=== PATIENT | female | born 1970 | race Caucasian/White ===

== ENCOUNTER 2020-11-14 12:58 | Outpatient (REF) | payer BC, SELFPAY ==
[2020-11-14 15:16] LABS: Erythrocyte Sedimentation Rate 7 MM/HR (0-20)
[2020-11-17 13:11] LABS: Anti Nuclear Antibody Screen NEGATIVE (NEGATIVE)
== END 2020-11-14 12:59 | disposition home or self-care (01) ==
LOC: HO.LAB 12:58
PROVIDERS: PCP Internal Medicine Endocrinology, Diabetes & Metabolism; Visit Provider Psychiatry & Neurology Neurology
DX: G43.009 Migraine without aura, not intractable, without status migrainosus (principal)
CPT/HCPCS: 36415; 85652; 86038; 86039

== ENCOUNTER 2021-07-05 15:11 | Inpatient (IN) | payer BC, SELFPAY ==
[2021-07-05] VITALS (14 sets, daily range): BP systolic 98–149; BP diastolic 46–97; PULSE 81–263; RESP 16–21; TEMP 36.8–37; O2SAT 94–97; BMI 42.9
--- NOTE | ~2021-07-05 | XR_ITS ---
EXAMINATION: XR CHEST CLINICAL INFORMATION: Palpitations COMPARISON: None TECHNIQUE: Frontal view of the chest was obtained. FINDINGS: The cardiac and mediastinal contours are stable. The lungs are clear. There is no pleural effusion or pneumothorax. There are degenerative changes of the spine. XR/XR chest 1V IMPRESSION: Unremarkable examination.
--- NOTE | 2021-07-05 15:26 | ECG_ITS ---
Test Reason : PALPITATIONS Blood Pressure : / mmHG Vent. Rate : 194 BPM Atrial Rate : 103 BPM P-R Int : 120 ms QRS Dur : 074 ms QT Int : 224 ms P-R-T Axes : 269 -11 -62 degrees QTc Int : 402 ms Atrial fibrillation with rapid ventricular response Abnormal ECG No previous ECGs available Referred By: Generic ED Physician Electronically Signed By:EYAD BECK
--- NOTE | 2021-07-05 15:51 | ED_ITS ---
HPI - Arrhythmia/Palpitations General Chief Complaint: Arrhythmia/Palpitations Stated Complaint: Palpitations Time Seen by Provider: 07/05/21 15:43 Source: patient History of Present Illness HPI narrative: Patient states approximately 1-1/2 hour prior to arrival she noticed palpitations. ?feels like my heart is beating out of my chest?. No chest pain. No prior history of similar issues. No recent medication changes or health status changes. She is vaccinated x3 against COVID. No respiratory issues or shortness of breath. No history of thyroid disorder or thromboembolic disease Related Data Home Medications Medication Instructions Recorded Confirmed amitriptyline 25 mg tablet 1 tab PO BEDTIME 07/05/21 07/05/21 atorvastatin 80 mg tablet 1 tab PO BEDTIME 07/05/21 07/05/21 cholecalciferol (vitamin D3) 50 50 mcg PO DAILY 07/05/21 07/05/21 mcg (2,000 unit) tablet (Vitamin D3) hydrochlorothiazide 25 mg tablet 1 tab PO DAILY 07/05/21 07/05/21 irbesartan 75 mg tablet 1 tab PO BEDTIME 07/05/21 07/05/21 metronidazole 0.75 % topical cream 1 appl TOPICAL BEDTIME 07/05/21 07/05/21 multivitamin 1 tab PO DAILY 07/05/21 07/05/21 omeprazole 20 mg capsule,delayed 20 mg PO DAILY@0630 07/05/21 07/05/21 release sumatriptan succinate 50 mg tablet 50 mg PO DAILY PRN 07/05/21 07/05/21 venlafaxine 150 mg tablet,extended 150 mg PO DAILY 07/05/21 07/05/21 release 24 hr Allergies Allergy/AdvReac Type Severity Reaction Status Date / Time No Known Allergies Allergy Verified 07/05/21 15:22 Review of Systems Constitutional: Comments: No fevers or chills recently Cardiovascular: Comments: Palpitations without chest pain Respiratory: Comments: No dyspnea Gastrointestinal: Comments: No nausea vomiting Musculoskeletal: Comments: No leg pain or pedal edema Integumentary/Breasts: Comments: No rash Neurologic: Comments: No syncope [facility] Past Medical History Medical History (Updated 07/05/21 @ 19:07 by Celestino Deras MD) High cholesterol Migraines Panic attack Social History Social History Advance Directives: No Advance Directives Information Provided: No Patient : No Physical Exam Vital Signs: Vital Signs: Last Vital Signs Temp 98.6 F 07/05/21 18:10 Pulse 117 H 07/05/21 19:03 Resp 18 07/05/21 19:03 BP 108/62 07/05/21 19:03 Pulse Ox 95 07/05/21 19:03 BMI result Body Mass Index 42.9 Const: Other: Awake alert no acute distress HENMT: Other: No JVD Chest: Other: Extremely tachycardic. On my exam over 200 beats per minute Resp: Other: Clear and equal bilaterally Skin: Other: Warm pink and dry Course Course Course Narrative: Atrial fibrillation SVT Tachy dysrhythmia Atrial flutter EKG shows tachycardia at 194 beats per minute which is irregularly irregular. Shortly after arrival patient's heart rate increased to 264 beats per minute. Narrow complex Patient treated with diltiazem IV. Repeated twice more with bolus. IV maintenance diltiazem drip at 15 mg an hour. Still with refractory a flutter at a rate of approximately 150. Metoprolol IV given with some improvement of rate down to approximately 130 beats per minute. Two more doses of metoprolol total given. 7:07 p.m.. Patient's heart rate now is around 115 beats per minute. Patient is comfortable. Blood pressure is maintaining above 100 systolic. Will hospitalize at this point MDM - Arrhythmia/Palpitations Lab Data Result diagrams: 07/05/21 15:49 07/05/21 15:49 Labs: Lab Results 07/05/21 07/05/21 07/05/21 Range/Units 15:49 15:49 15:49 WBC 14.9 H (4.8-10.8) X10*3/uL RBC 5.10 (4.20-5.50) X10*6/uL Hgb 14.0 (12.0-16.0) g/dl Hct 43.0 (37.0-47.0) % MCV 84.3 (80.0-98.0) fL MCH 27.5 (27.0-33.0) pg MCHC 32.6 (31.0-35.0) g/dl RDW 14.1 (11.0-16.0) % Plt Count 435 H (160-400) X10*3/uL MPV 9.2 L (9.4-12.3) fL Immature Gran % (Auto) 0.3 (0.0-0.4) % Neut % (Auto) 50.4 (45-73) % Lymph % (Auto) 39.2 (20-40) % [place] % (Auto) 7.8 (2-11) % Eos % (Auto) 1.9 (0-4) % Baso % (Auto) 0.4 (0-2) % Lymph # (Auto) 5.9 H (1.2-4.9) X10*3/uL [place] # (Auto) 1.2 (0.1-1.2) X10*3/uL Eos # (Auto) 0.3 (0.0-0.4) X10*3/uL Baso # (Auto) 0.1 (0.0-0.2) X10*3/uL Abs Immat Gran (auto) 0.04 H (0.00-0.03) X10*3/uL Absolute Neuts (auto) 7.5 (2.0-8.3) x10*3/uL Absolute Nucleated RBC 0.000 (0.0-0.012) X10*3/uL Nucleated RBC % (auto) 0.0 (0.0-0.2) /100WBC Smear Tech's Comments VERIFIED PT (9.9-13.0) SEC INR (0.9-1.1) D-Dimer High Sensitivty NG/ML Sodium 137 (135-145) mmol/L Potassium 4.1 (3.3-5.1) mmol/L Chloride 100 (96-108) mmol/L Carbon Dioxide 24 (22-29) mmol/L Anion Gap 17 (12-20) BUN 12 (9-16) mg/dL Creatinine 0.78 (0.5-1.4) mg/dL Estim Creat Clear Calc 105.2 Estimated GFR > 60 Random Glucose 138 H (60-115) mg/dL Calcium 9.7 (8.4-10.2) mg/dL Troponin I High Sens 8.4 (<3.5-17.0) ng/L TSH 0.63 (0.32-4.0) uIU/mL // Range/Units 16:41 WBC (4.8-10.8) X10*3/uL RBC (4.20-5.50) X10*6/uL Hgb (12.0-16.0) g/dl Hct (37.0-47.0) % MCV (80.0-98.0) fL MCH (27.0-33.0) pg MCHC (31.0-35.0) g/dl RDW (11.0-16.0) % Plt Count (160-400) X10*3/uL MPV (9.4-12.3) fL Immature Gran % (Auto) (0.0-0.4) % Neut % (Auto) (45-73) % Lymph % (Auto) (20-40) % [place] % (Auto) (2-11) % Eos % (Auto) (0-4) % Baso % (Auto) (0-2) % Lymph # (Auto) (1.2-4.9) X10*3/uL [place] # (Auto) (0.1-1.2) X10*3/uL Eos # (Auto) (0.0-0.4) X10*3/uL Baso # (Auto) (0.0-0.2) X10*3/uL Abs Immat Gran (auto) (0.00-0.03) X10*3/uL Absolute Neuts (auto) (2.0-8.3) x10*3/uL Absolute Nucleated RBC (0.0-0.012) X10*3/uL Nucleated RBC % (auto) (0.0-0.2) /100WBC Smear Tech's Comments PT 10.7 (9.9-13.0) SEC INR 0.9 (0.9-1.1) D-Dimer High Sensitivty < 150 NG/ML Sodium (135-145) mmol/L Potassium (3.3-5.1) mmol/L Chloride (96-108) mmol/L Carbon Dioxide (22-29) mmol/L Anion Gap (12-20) BUN (9-16) mg/dL Creatinine (0.5-1.4) mg/dL Estim Creat Clear Calc Estimated GFR Random Glucose (60-115) mg/dL Calcium (8.4-10.2) mg/dL Troponin I High Sens (<3.5-17.0) ng/L TSH (0.32-4.0) uIU/mL Discharge Plan Discharge Prescriptions: No Action atorvastatin 80 mg tablet 1 tab PO BEDTIME RF: 0 amitriptyline 25 mg tablet 1 tab PO BEDTIME RF: 0 metronidazole 0.75 % cream 1 appl topical BEDTIME RF: 0 irbesartan 75 mg tablet 1 tab PO BEDTIME RF: 0 hydrochlorothiazide 25 mg tablet 1 tab PO DAILY RF: 0 omeprazole 20 mg Capsule,Delayed Release(Dr/Ec) 20 mg PO DAILY@0630 RF: 0 multivitamin [Multi-Daily] Tablet 1 tab PO DAILY RF: 0 cholecalciferol (vitamin D3) [Vitamin D3] 50 mcg (2,000 unit) Tablet 50 mcg PO DAILY RF: 0 venlafaxine 150 mg Tablet Extended Release 24hr 150 mg PO DAILY RF: 0 sumatriptan succinate 50 mg Tablet 50 mg PO DAILY PRN (Reason: Migraine Headache) RF: 0
[2021-07-05] MEDS: dilTIAZem HCL 50 MG/10 ML VIAL 28.3495 MG IVPUSH (15:55)
[2021-07-05 16:02] LABS: Basophils Absolute Auto 0.1 X10*3/uL (0.0-0.2); Basophils Percent Auto 0.4 % (0-2); Eosinophils Absolute Auto 0.3 X10*3/uL (0.0-0.4); Eosinophils Percent Auto 1.9 % (0-4); Imm Gran Abs Auto 0.04 X10*3/uL (0.00-0.03); Imm Gran Pct Auto 0.3 % (0.0-0.4); Lymphocytes Absolute Auto 5.9 X10*3/uL (1.2-4.9); Lymphocytes Percent Auto 39.2 % (20-40); MANUAL DIFF FLAG SCAN; Mean Corpuscular HGB Conc 32.6 g/dl (31.0-35.0); Mean Corpuscular Hemoglobin 27.5 pg (27.0-33.0); Mean Corpuscular Volume 84.3 fL (80.0-98.0); Mean Platelet Volume 9.2 fL (9.4-12.3); Monocytes Absolute Auto 1.2 X10*3/uL (0.1-1.2); Monocytes Percent Auto 7.8 % (2-11); Neutrophils Absolute Auto 7.5 x10*3/uL (2.0-8.3); Neutrophils Percent Auto 50.4 % (45-73); Platelet Count 435 X10*3/uL (160-400); Red Cell Distribution Width 14.1 % (11.0-16.0); SCAN SMEAR FLAG 1; White Blood Count 14.9 X10*3/uL (4.8-10.8)
[2021-07-05 16:08] LABS: Anion Gap 17 (12-20); Blood Urea Nitrogen 12 mg/dL (9-16); Calcium 9.7 mg/dL (8.4-10.2); Carbon Dioxide 24 mmol/L (22-29); Chloride 100 mmol/L (96-108); Creatinine Clr Calc Pharmacy 105.2; Estimated Glomerular Filt Rate > 60; Glucose Random 138 mg/dL (60-115); Potassium 4.1 mmol/L (3.3-5.1); Sodium 137 mmol/L (135-145)
[2021-07-05 16:13] LABS: Troponin-I High Sensitivity 8.4 ng/L (<3.5-17.0)
[2021-07-05] MEDS: dilTIAZem HCL 50 MG/10 ML VIAL 20 MG IVPUSH ×2 (16:22→17:04)
[2021-07-05 16:23] LABS: SLIDE REVIEW VERIFIED
[2021-07-05] MEDS: LORazepam 2 MG/ML VIAL 1 MG IVPUSH (16:23)
[2021-07-05] MEDS: dilTIAZem HCL 125 MG in 0.9 % Sodium Chloride 100 ML 10 MG IVCONT (16:55)
[2021-07-05 16:56] LABS: TSH reflex Free T4 0.63 uIU/mL (0.32-4.0)
[2021-07-05 17:03] LABS: INTERNATIONAL NORM RATIO 0.9 (0.9-1.1); Prothrombin Time 10.7 SEC (9.9-13.0)
--- NOTE | 2021-07-05 17:16 | PC.NURSE ---
Diltiazem drip rate increased to 15 mg/hr. PT has received 3 IV push doses of diltiazem and HR remains elevated above 150.
[2021-07-05 17:21] LABS: D Dimer High Sensitivity < 150 NG/ML
--- NOTE | 2021-07-05 17:49 | PHA.MEDREC ---
MED REC COMPLETE, NO ISSUES Pharmacy Consult ? Medication Reconciliation Pharmacy has completed the medication reconciliation.
[2021-07-05] MEDS: Metoprolol Tartrate 5 MG/5 ML VIAL IVPUSH ×3 (17:52→18:54)
[2021-07-05] MEDS: 0.9 % Sodium Chloride 500 ML IV (18:55)
--- NOTE | 2021-07-05 19:17 | PM.IMHP ---
History of Present Illness Date of Service: 07/05/21 Chief Complaint: Palpitations 50-year-old female with a past medical history of hypertension, hyperlipidemia, anxiety, depression presented to the hospital with a chief complaint of palpitations. Reportedly palpitations started about high fall prior to coming to the ER. Denied any associated shortness of breath, lightheadedness dizziness, chest pain, headaches, numbness tingling or focal weakness. Denies being anxious. Denies any signs of infection-denies any fever chills cough, GI symptoms. Denies having episodes of palpitations in the past. Review of all other systems is negative except mentioned above ER course: Per ER team patient on presentation noted to be in AFib with a rapid ventricular response with heart rate in 150s to 160; also patient went into a flutter briefly with heart rate into 60s; patient was initially given IV diltiazem question followed by patient started on diltiazem drip. Heart rate improved to low 100s. Admitted to the hospital for further management. [facility] Medical History (Updated 07/05/21 @ 19:17 by Scott Trujillo MD) High cholesterol Migraines Panic attack Pertinent family history: Reviewed Social History Advance Directives: No Advance Directives Information Provided: No Patient : No Meds Allergies Allergy/AdvReac Type Severity Reaction Status Date / Time No Known Allergies Allergy Verified 07/05/21 15:22 Active Medications: Current Medications Amitriptyline HCl (Amitriptyline Hcl 25 Mg Tablet) 25 mg PO BEDTIME [facility] Atorvastatin Calcium (Atorvastatin Calcium 80 Mg Tablet) 80 mg PO BEDTIME [facility] Diltiazem HCl 125 mg/ Sodium (Chloride) 125 mls @ 0 mls/hr IVCONT .Q0M [facility]; Protocol Last Admin: 07/05/21 16:55 Dose: 10 mg/hr, 10 mls/hr Documented by: Sodium Chloride (Ns) 500 mls @ 500 mls/hr IV .Q1H [facility] Stop: 07/05/21 19:59 Last Admin: 07/05/21 18:55 Dose: 500 mls/hr Documented by: Multivitamins/Vitamin C (Multivitamin Tablet) 1 tab PO DAILY [facility] Omeprazole (Omeprazole 20 Mg Capsule.Dr) 20 mg PO DAILY@0630 [facility] Pharmacy Consult (Consult Rx Perform Med Rec) 1 each MISCELLANE ONCE PRN PRN Reason: Consult order Sumatriptan Succinate (Sumatriptan Succinate 50 Mg Tablet) 50 mg PO DAILY PRN PRN Reason: Migraine Headache Venlafaxine HCl (Venlafaxine Hcl Er 150 Mg Cap.Er.24h) 150 mg PO DAILY [facility] Vitamin D (Cholecalciferol (Vitamin D3) 25 Mcg Tablet) 50 mcg PO DAILY [facility] Home Medications Medication Instructions Recorded Confirmed Last Taken Type amitriptyline 25 mg tablet 1 tab PO BEDTIME 07/05/21 07/05/21 07/04/21 History atorvastatin 80 mg tablet 1 tab PO BEDTIME 07/05/21 07/05/21 07/04/21 History cholecalciferol (vitamin D3) 50 50 mcg PO DAILY 07/05/21 07/05/21 07/05/21 History mcg (2,000 unit) tablet (Vitamin D3) hydrochlorothiazide 25 mg tablet 1 tab PO DAILY 07/05/21 07/05/21 07/05/21 History irbesartan 75 mg tablet 1 tab PO BEDTIME 07/05/21 07/05/21 07/04/21 History metronidazole 0.75 % topical cream 1 appl TOPICAL BEDTIME 07/05/21 07/05/21 07/04/21 History multivitamin 1 tab PO DAILY 07/05/21 07/05/21 07/05/21 History omeprazole 20 mg capsule,delayed 20 mg PO DAILY@0630 07/05/21 07/05/21 07/05/21 History release sumatriptan succinate 50 mg tablet 50 mg PO DAILY PRN 07/05/21 07/05/21 Unknown History venlafaxine 150 mg tablet,extended 150 mg PO DAILY 07/05/21 07/05/21 07/05/21 History release 24 hr Physical Exam Vital Signs and Narrative: Vital Signs: Last Vital Signs Temp 98.6 F 07/05/21 18:10 Pulse 117 H 07/05/21 19:03 Resp 18 07/05/21 19:03 BP 108/62 07/05/21 19:03 Pulse Ox 95 07/05/21 19:03 BMI result Body Mass Index 42.9 Gen: Appears be in no acute distress HEENT: NCAT, Moist mucosa. Pulmonary: Vesicular breath sounds, fair air entry CVS: Normal S1-S2 Abdomen: BS+, Soft, Nontender Extremities: Warm well perfused Neuro: Alert and awake. Results Labs CBC and Chem 7: 07/05/21 15:49 07/05/21 15:49 Labs: Laboratory Results - last 24 hr 07/05/21 07/05/21 07/05/21 15:49 15:49 15:49 MCV 84.3 MCH 27.5 MCHC 32.6 RDW 14.1 Plt Count 435 H MPV 9.2 L Immature Gran % (Auto) 0.3 Neut % (Auto) 50.4 Lymph % (Auto) 39.2 [place] % (Auto) 7.8 Eos % (Auto) 1.9 Baso % (Auto) 0.4 Lymph # (Auto) 5.9 H [place] # (Auto) 1.2 Eos # (Auto) 0.3 Baso # (Auto) 0.1 Abs Immat Gran (auto) 0.04 H Absolute Neuts (auto) 7.5 Absolute Nucleated RBC 0.000 Nucleated RBC % (auto) 0.0 Smear Tech's Comments VERIFIED PT INR D-Dimer High Sensitivty Anion Gap 17 Estim Creat Clear Calc 105.2 Estimated GFR > 60 Random Glucose 138 H Calcium 9.7 Troponin I High Sens 8.4 TSH 0.63 07/05/21 16:41 MCV MCH MCHC RDW Plt Count MPV Immature Gran % (Auto) Neut % (Auto) Lymph % (Auto) [place] % (Auto) Eos % (Auto) Baso % (Auto) Lymph # (Auto) [place] # (Auto) Eos # (Auto) Baso # (Auto) Abs Immat Gran (auto) Absolute Neuts (auto) Absolute Nucleated RBC Nucleated RBC % (auto) Smear Tech's Comments PT 10.7 INR 0.9 D-Dimer High Sensitivty < 150 Anion Gap Estim Creat Clear Calc Estimated GFR Random Glucose Calcium Troponin I High Sens TSH Imaging Radiologist's Impressions: Impressions Chest X-Ray 07/05/21 16:21 IMPRESSION: Unremarkable examination. Assessment and Plan (1) Atrial fibrillation: Status: Acute (2) HTN (hypertension): Status: Acute 50-year-old female with a past medical history of hypertension, hyperlipidemia, anxiety, depression presented to the hospital with a chief complaint of palpitations. Noted to have new onset AFib with RVR. Admitted for further management. New onset AFib with RVR: Continue diltiazem drip. Patient initially received IV diltiazem push and metoprolol in the ER. Patient had [id number] Vasc score of 2. Will start the patient on Lovenox b.i.d. Echocardiogram Cardiology consult further recommendations TSH within the normal limits Monitor on telemetry Initial troponin 8.4--> 236--> 218--> likely demand from RVR; pt denies chest pain; pt on anticoagulation. Update: Early AM-> pt converted to NSR and HR in 70s. Held Diltiazem Drip around 6AM. History of hypertension/hyperlipidemia: Hold home irbesartan/hydrochlorothiazide noted to provide room for blood pressure 1 the patient is on diltiazem drip. History of anxiety/depression: Continue home medications. DVT prophylaxis: Patient on Lovenox Code status: Full code Quality Stroke Does the patient have a stroke diagnosis?: No VTE Prior VTE?: No VTE Risk Level:: Medical - moderate - high VTE Device Contraindication: Treatment Not Indicated VTE Drug Contraindication: N/A - Med Ordered
[2021-07-05 19:23] LABS: COVID-19 Test Negative (Negative)
[2021-07-05] MEDS: Enoxaparin Sodium 120 MG/0.8 ML SYRINGE 115 MG SUBCUT (20:00)
[2021-07-05] MEDS: Atorvastatin Calcium 80 MG TABLET PO (20:00)
[2021-07-05] MEDS: Aspirin Enteric Coated 81 MG TABLET.DR 162 MG PO (20:00)
[2021-07-05] MEDS: Amitriptyline HCl 25 MG TABLET PO (20:00)
[2021-07-05] MEDS: 0.9 % Sodium Chloride 1,000 ML 50 ML IVCONT (20:05)
[2021-07-05 20:22] LABS: Troponin-I High Sensitivity 236.8 ng/L (<3.5-17.0)
--- NOTE | 2021-07-05 23:14 | PC.NURSE ---
Trent ANGUIANO informs this RN that Dr Deras had requested a repeat trop on this patient. This RN assisting primary RN, sees no repeat has resulted, no repeat ordered. This rn ordered repeat trop. Trent ANGUIANO calling phlebotomy to draw repeat trop as pt is currently being transferred to ED overflow unit.
[2021-07-06 00:03] LABS: Troponin-I High Sensitivity 218.7 ng/L (<3.5-17.0)
[2021-07-06 00:18] VITALS: PULSE 103
[2021-07-06] MEDS: dilTIAZem HCL 125 MG in 0.9 % Sodium Chloride 100 ML 10 MG IVCONT (00:18)
[2021-07-06] MEDS: Melatonin 3 MG TABLET 6 MG PO (00:39)
[2021-07-06] MEDS: 0.9 % Sodium Chloride Flush 3 ML SYRINGE IVFLUSH (00:41)
--- NOTE | 2021-07-06 02:15 | PC.NURSE ---
Pt's HR fluctuated up [id number] and 140s, sustained. Cardizem gtt increast to 15 ml/hr Pt denies any CP/SOB/palpitations Will continue tomonitor
--- NOTE | 2021-07-06 03:06 | PC.NURSE ---
Pt HR fluctuating 90s [id number] bpm Will continue to monitor
[2021-07-06] MEDS: Omeprazole 20 MG CAPSULE.DR PO (05:50)
--- NOTE | 2021-07-06 05:55 | PC.NURSE ---
Pt's HR <90, sustained in 70s and 80s. Held pt's cardizem gtt Will continue to monitor
[2021-07-06 05:57] VITALS: BP 122/73; PULSE 78; RESP 20; TEMP 36.4; O2SAT 100
[2021-07-06 06:53] LABS: MANUAL DIFF FLAG NO
[2021-07-06 06:56] LABS: Basophils Percent Auto 0.3 % (0-2); Eosinophils Absolute Auto 0.2 X10*3/uL (0.0-0.4); Eosinophils Percent Auto 1.9 % (0-4); Hematocrit 42.8 % (37.0-47.0); Hemoglobin 13.8 g/dl (12.0-16.0); Imm Gran Abs Auto 0.03 X10*3/uL (0.00-0.03); Imm Gran Pct Auto 0.3 % (0.0-0.4); Lymphocytes Percent Auto 34.6 % (20-40); Mean Corpuscular HGB Conc 32.2 g/dl (31.0-35.0); Mean Corpuscular Hemoglobin 27.7 pg (27.0-33.0); Mean Corpuscular Volume 85.9 fL (80.0-98.0); Mean Platelet Volume 9.1 fL (9.4-12.3); Neutrophils Absolute Auto 6.2 x10*3/uL (2.0-8.3); Neutrophils Percent Auto 53.9 % (45-73); Platelet Count 372 X10*3/uL (160-400); Red Blood Count 4.98 X10*6/uL (4.20-5.50); Red Cell Distribution Width 14.5 % (11.0-16.0); White Blood Count 11.6 X10*3/uL (4.8-10.8)
[2021-07-06 07:17] LABS: Anion Gap 11 (12-20); Blood Urea Nitrogen 10 mg/dL (9-16); Calcium 9.1 mg/dL (8.4-10.2); Carbon Dioxide 26 mmol/L (22-29); Chloride 107 mmol/L (96-108); Creatinine Clr Calc Pharmacy 112.5; Estimated Glomerular Filt Rate > 60; Glucose Random 114 mg/dL (60-115); Magnesium 2.2 mg/dL (1.6-2.6); Potassium 4.1 mmol/L (3.3-5.1); Sodium 140 mmol/L (135-145)
[2021-07-06 07:30] VITALS: BP 115/74; PULSE 71; RESP 26; TEMP 36.2; O2SAT 97
--- NOTE | 2021-07-06 08:00 | CA_ITS ---
Transthoracic Echocardiogram Patient (Last, First, Middle): Aura Jay A Gender: Female Date of : 1970 Age: 50 Procedure Date: 07/06/2021 Procedure Type: Transthoracic Echocardiogram Location: ER Height: 162.56 cm Weight: 113.4 kg BSA: 2.15 m2 Heart Rate: bpm BP: 122 / 73 mmHg Senior Network Security Architect: YADI Referring MD: Scott Trujillo MD Symptoms: New onset AFib Study Quality: Fair ECG Rhythm: Sinus Conclusions: - The left ventricular systolic function is normal. The calculated ejection fraction is 64% by biplane method. - Likely aortic valve sclerosis but without any significant stenosis. Findings Left Ventricle Normal left ventricular cavity size. There is normal left ventricular wall thickness. The left ventricular systolic function is normal. The calculated ejection fraction is 64% by biplane method. There is no evidence of regional wall motion abnormalities. Diastolic function is normal for age. Right Ventricle Normal right ventricular cavity size and systolic function. Atria Both atria are normal in size. Aortic Valve The aortic valve was not well visualized. There is no aortic valve stenosis. The mean gradient is 11 mmHg. There is no aortic valve regurgitation. Mitral Valve The mitral valve appears normal. There is trace mitral valve regurgitation. There is no mitral valve stenosis. Pulmonic Valve The pulmonic valve was not well visualized. Tricuspid Valve Normal tricuspid valve structure. There is trace tricuspid valve regurgitation. The pulmonary artery systolic pressure is normal. Great Vessels The aortic annulus, sinuses of valsalva, asc aorta, and aortic arch are normal in size. Small plaque is seen in the sino tubular ridge. Venous The inferior vena cava is normal in size and collapses greater than 50% with inspiration. Pericardium/Pleural There is no evidence of pericardial effusion. Prior Study Comparison No prior study available for comparison. Measurements 2D Linear Measurements IVSd: 1.09 0.6-0.9/0.6-1.0 cm LVIDd: 4.52 3.9-5.3/4.2-5.9 cm LVIDd Index: 2.10 2.4-3.2/2.2-3.1 cm/m2 LVIDs: 3.03 2.0-3.6 cm LVPWd: 0.94 0.7-1.1 cm Ao Root: 3.70 2.1-3.5 cm LA Diam: 2.80 2.7-3.8/3.0-4.0 cm LAIDs Index: 1.30 1.5-2.3 cm/m2 LV Mass: 196.21 67-162/88-224 g LV Mass Index: 91.26 43-95/49-115 g/m2 LVOT Diam: 2.10 3.0+(-)1.3 cm 2D Systolic Function EF 4C: 67.10 >55% EF 2C: 61.80 >55% EF BiP: 64.20 >55% Mitral Valve MV Pk E: 0.78 MV PK A: 0.74 MV Decel Time: 209.00 E/A: 1.10 E'Lateral: 6.96 E'Medial: 7.18 E/E' Med: 10.90 E/E' Lat: 11.20 PHT: 61.00 MVA PHT: 3.61 Decel [place]ock: 3.73 Aortic Valve AoV Pk Zeferino: 2.24 AoV Mn Zeferino: 1.61 AoV VTI: 0.47 AoV Pk Grad: 20.00 Aov Mn Grad: 11.00 EFREN Cont.VTI: 1.65 LVOT LVOT Pk Zeferino: 1.21 LVOT Mn Zeferino: 0.83 LVOT VTI: 0.22 LVOT Pk Grad: 6.00 LVOT Mn Grad: 3.00 LVOT Diam: 2.10 LVOT Area: 3.46 Diastolic Function MV Pk E: 0.78 MV Pk A: 0.74 E/A: 1.10 E'Medial: 7.18 E/E' Med: 10.90 E' Laterial: 6.96 E/E' Lat: 11.20 Right Ventricle TAPSE (mm): 1.83 TVS' Zeferino: 15.00 Tricuspid Valve TR Pk Zeferino: 1.71 TR Pk Grad: 12.00 RA Press: 3.00 RVSP: 15.00 Great Vessels Aorta Ao Root-2D: 3.70 2.0-3.7 cm Ao Asc: 3.40 2.1-3.4 cm Ao Arch: 3.00 Updated in Other Vendor System with Status of Final Kristian Stover MD electronically signed on 07/06/2021 11:49:19 AM with status of Final
--- NOTE | 2021-07-06 08:01 | PC.NURSE ---
Received pt from warehouse supervisor 3rd shift: Pt AOX4 and offers no complaints at this time. NSR noted on the monitor. As told by warehouse supervisor 3rd shift, pt converted from AFib around 0620 this morning. Cardizem drip held at this time as per night hospitalist. Lungs clear. Pt abd round and nontender.
[2021-07-06] MEDS: Cholecalciferol (Vitamin D3) 25 MCG TABLET 50 MCG PO (09:10)
[2021-07-06] MEDS: Enoxaparin Sodium 120 MG/0.8 ML SYRINGE 115 MG SUBCUT (09:12)
[2021-07-06] MEDS: Venlafaxine HCl ER 150 MG CAP.ER.24H PO (09:12)
[2021-07-06] MEDS: Multivitamin TABLET 1 TAB PO (09:12)
--- NOTE | 2021-07-06 10:23 | P.CONCA_ITS ---
History of Present Illness History of Present Illness Date of Service: 07/06/21 Chief complaint: Palpitations Narrative: This is a cardiology consultation regarding atrial fibrillation. Harriett joe has a history of hypertension, hyperlipidemia anxiety. However, no known cardiac issues. No history of any coronary disease myocardial infarction or cardiomyopathy or any other major cardiac concerns. She was apparently having a normal day as usual is today but suddenly started noticing palpitations. This led to the hospitalization and she was noted to have atrial flutter with rapid rate. Then it seems she got Cardizem IV and then now she is back in sinus rhythm. Total duration arrhythmia around 16-17 hours. Currently she is in sinus rhythm and feels good. No anginal-type chest pains or shortness of breath or any other cardiac concerns. Review of Systems Review of Systems: Yes all other systems are reviewed and are negative Cardiovascular: Cardiovascular: Reports as per HPI, Reports no additional cardiovascular complaints, Denies acrocyanosis, Denies cool extremities, Denies painful fingertips, Denies chest pain, Denies chest pain at rest, Denies diaphoresis, Denies syncope, Denies irregular heart rhythm, Denies claudication, Denies leg edema, Denies lightheadedness, Denies palpitations and Denies dyspnea Respiratory: Respiratory: Denies dyspnea Neurologic: Denies syncope Endocrine: Endocrine: Denies palpitations [facility] Past Medical History Medical History (Updated 07/06/21 @ 10:28 by Kristian Stover MD) High cholesterol Migraines Panic attack Family History Family History (Updated 07/06/21 @ 10:26 by Kristian Stover MD) Mother Atrial fibrillation Father Heart valve problem Social History Social History Advance Directives: No Advance Directives Information Provided: No Patient : No Meds Allergies Allergy/AdvReac Type Severity Reaction Status Date / Time No Known Allergies Allergy Verified 07/05/21 15:22 Active Medications: Current Medications Acetaminophen (Acetaminophen 325 Mg Tablet) 650 mg PO Q6H PRN PRN Reason: Pain, Mild (Pain Scale 1-3) Amitriptyline HCl (Amitriptyline Hcl 25 Mg Tablet) 25 mg PO BEDTIME [facility] Last Admin: 07/05/21 20:00 Dose: 25 mg Documented by: Atorvastatin Calcium (Atorvastatin Calcium 80 Mg Tablet) 80 mg PO BEDTIME ANDREW Last Admin: 07/05/21 20:00 Dose: 80 mg Documented by: Enoxaparin Sodium (Enoxaparin Sodium 120 Mg/0.8 Ml Syringe) 115 mg SUBCUT Q12H [facility] Last Admin: 07/06/21 09:12 Dose: 115 mg Documented by: Diltiazem HCl 125 mg/ Sodium (Chloride) 125 mls @ 0 mls/hr IVCONT .Q0M [facility]; Protocol Last Titration: 07/06/21 05:56 Dose: 0 mg/hr, 0 mls/hr Documented by: Sodium Chloride (Ns) 1,000 mls @ 50 mls/hr IVCONT .Q20H [facility] Last Admin: 07/05/21 20:05 Dose: 50 mls/hr Documented by: Melatonin (Melatonin 3 Mg Tablet) 6 mg PO BEDTIME PRN PRN Reason: Insomnia Last Admin: 07/06/21 00:39 Dose: 6 mg Documented by: Metoprolol Tartrate (Metoprolol Tartrate 25 Mg Tablet) 25 mg PO BID [facility]; Protocol Multivitamins/Vitamin C (Multivitamin Tablet) 1 tab PO DAILY [facility] Last Admin: 07/06/21 09:12 Dose: 1 tab Documented by: Omeprazole (Omeprazole 20 Mg Capsule.Dr) 20 mg PO DAILY@0630 [facility] Last Admin: 07/06/21 05:50 Dose: 20 mg Documented by: Pharmacy Consult (Consult Rx Perform Med Rec) 1 each MISCELLANE ONCE PRN PRN Reason: Consult order Senna (Sennosides 8.6 Mg Tablet) 17.2 mg PO BEDTIME PRN PRN Reason: Constipation Sodium Chloride (0.9 % Sodium Chloride Flush 3 Ml Syringe) 3 ml IVFLUSH QSHIFT [facility] Last Admin: 07/06/21 08:19 Dose: Not Given Documented by: Sumatriptan Succinate (Sumatriptan Succinate 50 Mg Tablet) 50 mg PO DAILY PRN PRN Reason: Migraine Headache Venlafaxine HCl (Venlafaxine Hcl Er 150 Mg Cap.Er.24h) 150 mg PO DAILY [facility] Last Admin: 07/06/21 09:12 Dose: 150 mg Documented by: Vitamin D (Cholecalciferol (Vitamin D3) 25 Mcg Tablet) 50 mcg PO DAILY [facility] Last Admin: 07/06/21 09:10 Dose: 50 mcg Documented by: Home Medications Medication Instructions Recorded Confirmed Last Taken Type amitriptyline 25 mg tablet 1 tab PO BEDTIME 07/05/21 07/05/21 07/04/21 History atorvastatin 80 mg tablet 1 tab PO BEDTIME 07/05/21 07/05/21 07/04/21 History cholecalciferol (vitamin D3) 50 50 mcg PO DAILY 07/05/21 07/05/21 07/05/21 History mcg (2,000 unit) tablet (Vitamin D3) hydrochlorothiazide 25 mg tablet 1 tab PO DAILY 07/05/21 07/05/21 07/05/21 History irbesartan 75 mg tablet 1 tab PO BEDTIME 07/05/21 07/05/21 07/04/21 History metronidazole 0.75 % topical cream 1 appl TOPICAL BEDTIME 07/05/21 07/05/21 07/04/21 History multivitamin 1 tab PO DAILY 07/05/21 07/05/21 07/05/21 History omeprazole 20 mg capsule,delayed 20 mg PO DAILY@0630 07/05/21 07/05/21 07/05/21 History release sumatriptan succinate 50 mg tablet 50 mg PO DAILY PRN 07/05/21 07/05/21 Unknown History venlafaxine 150 mg tablet,extended 150 mg PO DAILY 07/05/21 07/05/21 07/05/21 History release 24 hr Physical Exam Vital Signs: Vital Signs: Last Vital Signs Temp 97.2 F 07/06/21 07:30 Pulse 71 07/06/21 07:30 Resp 26 H 07/06/21 07:30 BP 115/74 07/06/21 07:30 Pulse Ox 97 07/06/21 07:30 BMI result Body Mass Index 42.9 Const: General: no acute distress HENMT: Other: Unremarkable Neck: Neck: Yes normal visual inspection Chest: Chest palpation & inspection: normal inspection of the chest Resp: Auscultation: no crackles and no wheezes Cardio: Palpation: normal PMI Heart sounds: S1 normal heart sound present, S2 normal heart sound present, no gallops, no murmurs and no rubs GI: Palpation (GI): Soft to palpation Back/Spine/Pelvis: Other: unremarkable Skin: Lesions: other Neuro: Cranial nerves: Yes Other cranial nerve findings present Extrem: General: Yes other Psych: Mental Status: other Objective Labs and Meds Result diagrams: 07/06/21 06:07 07/06/21 06:07 Lab results: Laboratory Results - last 24 hr 07/05/21 07/05/21 07/05/21 15:49 15:49 15:49 WBC 14.9 H RBC 5.10 Hgb 14.0 Hct 43.0 MCV 84.3 MCH 27.5 MCHC 32.6 RDW 14.1 Plt Count 435 H MPV 9.2 L Immature Gran % (Auto) 0.3 Neut % (Auto) 50.4 Lymph % (Auto) 39.2 [place] % (Auto) 7.8 Eos % (Auto) 1.9 Baso % (Auto) 0.4 Lymph # (Auto) 5.9 H [place] # (Auto) 1.2 Eos # (Auto) 0.3 Baso # (Auto) 0.1 Abs Immat Gran (auto) 0.04 H Absolute Neuts (auto) 7.5 Absolute Nucleated RBC 0.000 Nucleated RBC % (auto) 0.0 Smear Tech's Comments VERIFIED PT INR D-Dimer High Sensitivty Sodium 137 Potassium 4.1 Chloride 100 Carbon Dioxide 24 Anion Gap 17 BUN 12 Creatinine 0.78 Estim Creat Clear Calc 105.2 Estimated GFR > 60 Random Glucose 138 H Calcium 9.7 Magnesium Troponin I High Sens 8.4 TSH 0.63 COVID-19 ([facility]AN) [employer] 07/05/21 07/05/21 07/05/21 16:41 19:00 19:51 WBC RBC Hgb Hct MCV MCH MCHC RDW Plt Count MPV Immature Gran % (Auto) Neut % (Auto) Lymph % (Auto) [place] % (Auto) Eos % (Auto) Baso % (Auto) Lymph # (Auto) [place] # (Auto) Eos # (Auto) Baso # (Auto) Abs Immat Gran (auto) Absolute Neuts (auto) Absolute Nucleated RBC Nucleated RBC % (auto) Smear Tech's Comments PT 10.7 INR 0.9 D-Dimer High Sensitivty < 150 Sodium Potassium Chloride Carbon Dioxide Anion Gap BUN Creatinine Estim Creat Clear Calc Estimated GFR Random Glucose Calcium Magnesium Troponin I High Sens 236.8 H* D TSH COVID-19 ([facility]) Negative [employer] See Note 07/05/21 07/06/21 07/06/21 23:29 06:07 06:07 WBC 11.6 H RBC 4.98 Hgb 13.8 Hct 42.8 MCV 85.9 MCH 27.7 MCHC 32.2 RDW 14.5 Plt Count 372 MPV 9.1 L Immature Gran % (Auto) 0.3 Neut % (Auto) 53.9 Lymph % (Auto) 34.6 [place] % (Auto) 9.0 Eos % (Auto) 1.9 Baso % (Auto) 0.3 Lymph # (Auto) 4.0 [place] # (Auto) 1.0 Eos # (Auto) 0.2 Baso # (Auto) 0.0 Abs Immat Gran (auto) 0.03 Absolute Neuts (auto) 6.2 Absolute Nucleated RBC 0.000 Nucleated RBC % (auto) 0.0 Smear Tech's Comments PT INR D-Dimer High Sensitivty Sodium 140 Potassium 4.1 Chloride 107 Carbon Dioxide 26 Anion Gap 11 L BUN 10 Creatinine 0.73 Estim Creat Clear Calc 112.5 Estimated GFR > 60 Random Glucose 114 Calcium 9.1 D Magnesium 2.2 Troponin I High Sens 218.7 H* TSH COVID-19 ([facility]) COVID-19 Clin Com ECG Interpretation: EKGs reviewed. Initial EKG could be atrial fibrillation with rapid rate at 194/Min. Repeat EKG shows rather flutter at 140/Min. Currently she is in sinus rhythm. Imaging Radiologist's impression: Impressions Chest X-Ray 07/05/21 16:21 IMPRESSION: Unremarkable examination. Assessment and Plan (1) Atrial fibrillation with rapid ventricular response: Status: Acute (2) Atrial flutter with rapid ventricular response: Status: Acute Labs reviewed. Troponins are elevated at 236 and 218. TSH is normal. Echocardiogram pending. Home meds for hypertension include hydrochlorothiazide, irbesartan. She has been commenced on metoprolol here. Once echocardiogram is reviewed will follow up with you regarding medical therapy. Her duration of arrhythmias around 17 hours or so and no known episodes in the past. Her chads Vasc score is positive for 2- hypertension, female sex. Due to brief and isolated episode, at this time, we will plan on holding anticoagulation. With regard to elevated troponins, most likely from rapid arrhythmia but she may need a stress test as an outpatient. Procedures Date of Service Date of Service: 07/06/21
[2021-07-06] MEDS: Metoprolol Tartrate 25 MG TABLET PO (10:57)
--- NOTE | 2021-07-06 12:12 | MHC.CM.PN ---
Addendum entered by Kailyn Daniels 07/06/21 12:17: PT BEING DISCHARGED HOME TODAY WITH NO SERVICES Original Note: CM MET WITH PT IN ED OVERFLOW 05. PT REPORTS SHE LIVES WITH HER SON AND DAUGHTER, BOTH IN THEIR TEENS. 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
--- NOTE | 2021-07-06 12:13 | PM.DS ---
DS: Providers Provider Date of Service: 07/06/21 Date of admission: 07/05/21 19:14 Primary care physician: Jennifer Toussaint MD Consults: 07/05/21 19:14 Consult to Cardiology Routine Consulting Provider: Kristian Stover Reason for consultation: New onset AFib with RVR DS: Diagnosis Discharge Diagnosis (1) Atrial fibrillation with rapid ventricular response: Status: Acute (2) Atrial flutter with rapid ventricular response: Status: Acute DS: Summary Hospital Course Hospital Course: 50 year old female with HTN and HLD, obesity who presented with palpitation and noted to be in AFIB with RVR, and her troponin trended up. She was treated with IV cardizem drip and ultimately converted to sinus rythm and later started on Metoprolol in light of some increase in troponin I (8 to 236 to 218) which is attributed to AFIB with RVR, she had no chest pain. She was evaluated by cardiology and at this time will be treated with ASA, Metoprolol and given that BP is normal side will stop Irversartanand HCTZ. Echo showed: The left ventricular systolic function is normal.? The calculated ejection fraction is 64% by biplane method. ? - Likely aortic valve sclerosis but without any significant? ? ? stenosis. She is comfortable with plan to go home and will follow up with Dr. Stover for further cardiac testing on outpatient basis. Weight loss advised for obesity and to continue Lipoitor for HLD ? Final diagnosis: Paroxysmal afib Elevated troponin HTN morbid obesity HLD Time Spent with Patient Time attestation: Total time spent providing and/or coordinating discharge services: Discharge coordination time: Greater than 30 minutes Quality: Stroke Does the patient have a stroke diagnosis?: No Physical Exam Vital Signs: Vital Signs: Last Vital Signs Temp 97.2 F 07/06/21 07:30 Pulse 71 07/06/21 07:30 Resp 26 H 07/06/21 07:30 BP 115/74 07/06/21 07:30 Pulse Ox 97 07/06/21 07:30 BMI result Body Mass Index 42.9 Const: Other: General: AO X 3, no acute distress Resp: CTA bilateral CVS: S1,S2,RRR GI: +BS, NT, no distention Skin: No rash Neuro: motor grossly intact Psych: appropriate affect DS: Data Data Completed and Pending Labs on day of discharge: Laboratory Results - last 24 hr 07/05/21 07/05/21 07/05/21 15:49 15:49 15:49 WBC 14.9 H RBC 5.10 Hgb 14.0 Hct 43.0 MCV 84.3 MCH 27.5 MCHC 32.6 RDW 14.1 Plt Count 435 H MPV 9.2 L Immature Gran % (Auto) 0.3 Neut % (Auto) 50.4 Lymph % (Auto) 39.2 [place] % (Auto) 7.8 Eos % (Auto) 1.9 Baso % (Auto) 0.4 Lymph # (Auto) 5.9 H [place] # (Auto) 1.2 Eos # (Auto) 0.3 Baso # (Auto) 0.1 Abs Immat Gran (auto) 0.04 H Absolute Neuts (auto) 7.5 Absolute Nucleated RBC 0.000 Nucleated RBC % (auto) 0.0 Smear Tech's Comments VERIFIED PT INR D-Dimer High Sensitivty Sodium 137 Potassium 4.1 Chloride 100 Carbon Dioxide 24 Anion Gap 17 BUN 12 Creatinine 0.78 Estim Creat Clear Calc 105.2 Estimated GFR > 60 Random Glucose 138 H Calcium 9.7 Magnesium Troponin I High Sens 8.4 TSH 0.63 COVID-19 ([facility]) COVID-[facility] Com 07/05/21 07/05/21 07/05/21 16:41 19:00 19:51 WBC RBC Hgb Hct MCV MCH MCHC RDW Plt Count MPV Immature Gran % (Auto) Neut % (Auto) Lymph % (Auto) [place] % (Auto) Eos % (Auto) Baso % (Auto) Lymph # (Auto) [place] # (Auto) Eos # (Auto) Baso # (Auto) Abs Immat Gran (auto) Absolute Neuts (auto) Absolute Nucleated RBC Nucleated RBC % (auto) Smear Tech's Comments PT 10.7 INR 0.9 D-Dimer High Sensitivty < 150 Sodium Potassium Chloride Carbon Dioxide Anion Gap BUN Creatinine Estim Creat Clear Calc Estimated GFR Random Glucose Calcium Magnesium Troponin I High Sens 236.8 H* D TSH COVID-19 ([facility]AN) Negative COVID-19 Clin Com See Note 07/05/21 07/06/21 07/06/21 23:29 06:07 06:07 WBC 11.6 H RBC 4.98 Hgb 13.8 Hct 42.8 MCV 85.9 MCH 27.7 MCHC 32.2 RDW 14.5 Plt Count 372 MPV 9.1 L Immature Gran % (Auto) 0.3 Neut % (Auto) 53.9 Lymph % (Auto) 34.6 [place] % (Auto) 9.0 Eos % (Auto) 1.9 Baso % (Auto) 0.3 Lymph # (Auto) 4.0 [place] # (Auto) 1.0 Eos # (Auto) 0.2 Baso # (Auto) 0.0 Abs Immat Gran (auto) 0.03 Absolute Neuts (auto) 6.2 Absolute Nucleated RBC 0.000 Nucleated RBC % (auto) 0.0 Smear Tech's Comments PT INR D-Dimer High Sensitivty Sodium 140 Potassium 4.1 Chloride 107 Carbon Dioxide 26 Anion Gap 11 L BUN 10 Creatinine 0.73 Estim Creat Clear Calc 112.5 Estimated GFR > 60 Random Glucose 114 Calcium 9.1 D Magnesium 2.2 Troponin I High Sens 218.7 H* TSH COVID-19 ([facility]) COVID-19 Clin Com Discharge Plan Discharge Anticipated Discharge Date/Time: 07/06/21 12:07 Patient Disposition: Home, Self-Care Discharge Diagnosis: New afib, elevated troponin Referrals: Jennifer Toussaint MD [Primary Care Provider] - 1 Week Discharge Medications: New metoprolol tartrate 25 mg Tablet 25 mg PO BID Qty: 60 RF: 0 aspirin 81 mg capsule 81 mg PO DAILY Qty: 60 RF: 0 Continued atorvastatin 80 mg tablet 1 tab PO BEDTIME RF: 0 amitriptyline 25 mg tablet 1 tab PO BEDTIME RF: 0 metronidazole 0.75 % cream 1 appl topical BEDTIME RF: 0 omeprazole 20 mg Capsule,Delayed Release(Dr/Ec) 20 mg PO DAILY@0630 RF: 0 multivitamin Tablet 1 tab PO DAILY RF: 0 cholecalciferol (vitamin D3) [Vitamin D3] 50 mcg (2,000 unit) Tablet 50 mcg PO DAILY RF: 0 venlafaxine 150 mg Tablet Extended Release 24hr 150 mg PO DAILY RF: 0 sumatriptan succinate 50 mg Tablet 50 mg PO DAILY PRN (Reason: Migraine Headache) RF: 0 Discontinued irbesartan 75 mg tablet 1 tab PO BEDTIME RF: 0 hydrochlorothiazide 25 mg tablet 1 tab PO DAILY RF: 0 Discharge Orders: Discharge Order (Routine); Ordered 07/06/21 Ordered By: Husam Hurtado Diet: advance to usual diet and low fat, low cholesterol Activity on Discharge: As tolerated Stand Alone Forms: Patient Portal Discharge page Care Plan Goals: full cardiac work and prevent further afib Health Concerns: New afib, elevated troponin Plan of Treatment: take Metoprolol for blood pressure and heart rate control. Note that hydrochlorothiazide and Irbersartan are stopped. Take 1 baby aspirin daily, continue Lipitor and follow up with your doctor and Dr. Stover who will arrange for further cardiac testing. Assessment: See above
== END 2021-07-06 14:05 | disposition home or self-care (01) | DRG 201 ==
LOC: HO.ED 19:07 → HO.EDOVER 19:36
PROVIDERS: Admitting Provider Hospitalist; Emergency Provider Emergency Medicine; PCP Internal Medicine Endocrinology, Diabetes & Metabolism; Visit Provider Internal Medicine
DX: I48.91 Unspecified atrial fibrillation (principal); I10 Essential (primary) hypertension; F41.9 Anxiety disorder, unspecified; F32.A Depression, unspecified; E78.5 Hyperlipidemia, unspecified; I48.92 Unspecified atrial flutter; Z20.822 Contact with and (suspected) exposure to COVID-19; Z79.82 Long term (current) use of aspirin; Z79.899 Other long term (current) drug therapy
CPT/HCPCS: 36415; 71045; 80048; 83735; 84443; 84484; 85025; 85379; 85610; 87635; 93005; 93306; 99285; J1650; J2060

== ENCOUNTER → 2021-07-20 14:25 | Outpatient (BNVA) | payer BC, SELFPAY | PROVIDERS: PCP Internal Medicine Endocrinology, Diabetes & Metabolism; Visit Provider Internal Medicine | DX: I48.0 Paroxysmal atrial fibrillation (principal); R77.8 Other specified abnormalities of plasma proteins; G47.33 Obstructive sleep apnea (adult) (pediatric); Z99.89 Dependence on other enabling machines and devices | CPT/HCPCS: 93005 ==

== ENCOUNTER → 2021-08-24 08:44 | Outpatient (REF) | payer BC, SELFPAY ==
--- NOTE | ~2021-08-24 | NM_ITS ---
EXERCISE MYOCARDIAL PERFUSION STUDY INDICATION: Atrial fibrillation, troponins, assess for coronary disease and ischemia TECHNIQUE: The patient was brought in for an exercise perfusion study on 08/24/2021. Patient performed exercise as per Immanuel protocol and was injected 40 mCi of sestamibi once target heart rate was achieved. Images were obtained using the SPECT gamma camera interlaced with the gating device. Images were obtained in supine position. Resting perfusion study was performed on 08/28/2021. Patient was administered 40 mCi of sestamibi intravenously at rest. Images were then obtained in supine position. Total DLP 137mGy-cm. Images were processed with the software and compared side to side in short axis, horizontal long axis and vertical long axis views. FINDINGS: Raw images were reviewed. The stress perfusion study showed diminished tracer uptake along the anterior wall somewhat more prominent in the mid to distal portions. There is improvement with CT attenuation correction and hence could be from soft tissue attenuation artifact. The gated study shows normal LV systolic function with calculated LVEF of 67%. LV cavity is normal in size. The gated study shows normal wall thickening and contraction of segments. Resting study shows diminished tracer uptake in the anterior wall. There is improvement with CT attenuation correction and hence suggestive of soft tissue attenuation artifact. Gating at rest reveals normal wall motion with ejection fraction at 64%. The findings are consistent with fixed anterior defect most likely from soft tissue attenuation artifact. NM/NM cardiolite stress test IMPRESSION: 1. Myocardial perfusion imaging study shows likely normal myocardial perfusion. 2. Gated LVEF is 67% during stress and 64% during rest. 3. Transient ischemic dilatation not present. EKG component of the test reported separately.
--- NOTE | 2021-08-24 08:48 | CA_ITS ---
Acquisition Time: 2021-08-24 08:51:29 Total Exercise Time: 00:05:14 Test Indications: AFIB, ABN EKG Medications: SEE CHART Protocol: BONY Max HR: 162 BPM 95% of Pred: 169 BPM Max BP: 188/072 mmHG Max Work Load: 7.0 METS Exercise stress test with exercise 5 min 14 sec of Bony protocol, with mild sob, no chest discomfort, with isolated PVC and one ventricular cuplet near peak exercise, with normotensive response to exercise, without EKG changes meeting criteria for ischemia. Nuclear images pending. Test reviewed with Dr Walter. Referred By: Kristian Stover Overread By: MILANA BRIGHT
== END ==
LOC: HO.CARD 08:44
PROVIDERS: Visit Provider Internal Medicine
DX: I21.4 Non-ST elevation (NSTEMI) myocardial infarction (principal)
CPT/HCPCS: 78452; 93017; A9500

== ENCOUNTER → 2021-10-05 10:52 | Outpatient (BNVA) | payer BC, SELFPAY | PROVIDERS: PCP Internal Medicine Endocrinology, Diabetes & Metabolism; Visit Provider Internal Medicine | DX: I48.0 Paroxysmal atrial fibrillation (principal); I10 Essential (primary) hypertension; E78.5 Hyperlipidemia, unspecified; R77.8 Other specified abnormalities of plasma proteins; G47.33 Obstructive sleep apnea (adult) (pediatric); Z99.89 Dependence on other enabling machines and devices; Z79.899 Other long term (current) drug therapy | CPT/HCPCS: 99212 ==

== ENCOUNTER 2022-01-11 07:10 | Outpatient (REF) | payer BC, SELFPAY ==
--- NOTE | ~2022-01-11 | XR_ITS ---
EXAMINATION: XR CHEST CLINICAL INFORMATION: Morbid obesity COMPARISON: July 05, 2021 TECHNIQUE: 2 views of the chest were obtained. FINDINGS: No significant abnormality is noted involving the heart, lungs, mediastinum, bony thorax or soft tissues. XR/XR chest 2V IMPRESSION: No acute disease.
--- NOTE | 2022-01-11 07:19 | ECG_ITS ---
Test Reason : E66.01 Blood Pressure : / mmHG Vent. Rate : 068 BPM Atrial Rate : 068 BPM P-R Int : 150 ms QRS Dur : 082 ms QT Int : 400 ms P-R-T Axes : 046 034 019 degrees QTc Int : 425 ms Normal sinus rhythm Normal ECG When compared with ECG of 05-JUL-2021 15:33, Rhythm change from atrial fibrillation to sinus. Referred By: Dread Jiménez Electronically Signed By:EYAD BECK
[2022-01-11 07:27] LABS: MANUAL DIFF FLAG NO
[2022-01-11 08:52] LABS: Basophils Absolute Auto 0.1 X10*3/uL (0.0-0.2); Basophils Percent Auto 0.5 % (0-2); Eosinophils Absolute Auto 0.3 X10*3/uL (0.0-0.4); Eosinophils Percent Auto 2.6 % (0-4); Hematocrit 43.2 % (37.0-47.0); Hemoglobin 13.6 g/dl (12.0-16.0); Imm Gran Abs Auto 0.04 X10*3/uL (0.00-0.03); Imm Gran Pct Auto 0.4 % (0.0-0.4); Lymphocytes Percent Auto 28.6 % (20-40); Mean Corpuscular HGB Conc 31.5 g/dl (31.0-35.0); Mean Corpuscular Hemoglobin 26.9 pg (27.0-33.0); Mean Corpuscular Volume 85.4 fL (80.0-98.0); Mean Platelet Volume 9.6 fL (9.4-12.3); Monocytes Percent Auto 9.3 % (2-11); Neutrophils Absolute Auto 6.2 x10*3/uL (2.0-8.3); Neutrophils Percent Auto 58.6 % (45-73); Platelet Count 373 X10*3/uL (160-400); Red Blood Count 5.06 X10*6/uL (4.20-5.50); Red Cell Distribution Width 14.6 % (11.0-16.0); White Blood Count 10.6 X10*3/uL (4.8-10.8)
[2022-01-11 09:11] LABS: Estimated Average Glucose 100 mg/dL; Hemoglobin A1c % 5.1 %
[2022-01-11 09:20] LABS: Alanine Aminotransferase 32 U/L (0-31); Alkaline Phosphatase 100 U/L (39-117); Anion Gap 15 (12-20); Aspartate Amino Transferase 21 U/L (5-31); Bilirubin Total 0.9 mg/dL (0.0-1.0); Blood Urea Nitrogen 17 mg/dL (9-16); C Reactive Protein 4.89 mg/dL (< or = 0.50); Calcium 9.3 mg/dL (8.4-10.2); Carbon Dioxide 25 mmol/L (22-29); Chloride 104 mmol/L (96-108); Cholesterol 252 mg/dL; Estimated Glomerular Filt Rate > 60; Glucose Random 107 mg/dL (60-115); HDL Cholesterol 45 mg/dL; Iron 40 mcg/dL (30-160); LDL Cholesterol Calculated 178 mg/dl; Percent Iron Saturation 13 % (15-50); Potassium 4.6 mmol/L (3.3-5.1); Sodium 139 mmol/L (135-145); Total Iron Binding Capacity 309 mcg/dL (228-428); Total Protein 6.9 g/dL (6.5-8.0); Triglycerides 147 mg/dL; Unsaturated Iron Binding 269 ug/dL
[2022-01-11 09:44] LABS: Ferritin 228 ng/mL (10-250); Insulin 18 uU/mL (2-29); TSH reflex Free T4 0.97 uIU/mL (0.32-4.0); Vitamin D 25-OH Total 38.7 ng/mL (>30)
[2022-01-11 10:38] LABS: Folate > 20.0 ng/mL (> or = 4.0); Vitamin B12 1433 pg/mL (200-900)
[2022-01-12 12:02] LABS: Calcium (PTHI) 9.3 mg/dL (8.6-10.4); PTHI 37 pg/mL (16-77)
[2022-01-17 09:07] LABS: Zinc 79 mcg/dL (60-130)
[2022-01-17 15:49] LABS: Vitamin B1 46 nmol/L (8-30)
[2022-01-18 13:17] LABS: Vitamin A 51 mcg/dL (38-98)
== END 2022-01-11 07:11 | disposition home or self-care (01) ==
LOC: HO.LAB 07:10
PROVIDERS: PCP Internal Medicine Endocrinology, Diabetes & Metabolism; Visit Provider Physician Assistant Surgical
DX: E66.01 Morbid (severe) obesity due to excess calories (principal)
CPT/HCPCS: 36415; 71046; 80053; 80061; 82306; 82607; 82728; 82746; 83036; 83525; 83540; 83970; 84425; 84443; 84590; 84630; 85025; 86140; 93005

== ENCOUNTER → 2022-01-18 14:00 | Outpatient (BNVA) | payer BC, SELFPAY | PROVIDERS: PCP Internal Medicine Endocrinology, Diabetes & Metabolism; Visit Provider Counselor Mental Health | DX: F33.0 Major depressive disorder, recurrent, mild (principal); F41.0 Panic disorder [episodic paroxysmal anxiety]; E66.01 Morbid (severe) obesity due to excess calories | CPT/HCPCS: 90791 ==

== ENCOUNTER → 2022-01-29 14:13 | Outpatient (BNVA) | payer BC, SELFPAY | PROVIDERS: PCP Internal Medicine Endocrinology, Diabetes & Metabolism; Visit Provider Dietitian, Registered | DX: Z71.3 Dietary counseling and surveillance (principal); E66.01 Morbid (severe) obesity due to excess calories | CPT/HCPCS: 97802 ==

== ENCOUNTER 2022-02-15 06:12 | Day surgery (SDC) | payer BC, SELFPAY ==
--- NOTE | 2022-02-14 09:57 | HO.ANESPROP2 ---
Documented by User: Sherry Mora NP 02/14/22 10:00 HPI - Anesthesia Eval Consult details Narrative: 51yo F for Upper Endoscopy with H Pylori test PAF, no anticoag PMFSH Active Problems Active Problems: All Active Problems (Updated 02/07/22 @ 08:56 by Emory Gutiérrez MD) Dysphagia (Acute) GERD (gastroesophageal reflux disease) (Acute) Panic disorder (Acute) Major depressive disorder, recurrent, mild (Acute) Morbid obesity (Acute) ABHIJIT on CPAP (Acute) Elevated troponin (Acute) PAF (paroxysmal atrial fibrillation) (Acute) Past Medical History Medical History (Updated 02/15/22 @ 06:55 by Anisa Dee, RN) Asthma High cholesterol HTN (hypertension) Migraines ABHIJIT on CPAP Panic attack Family History Family History Mother Atrial fibrillation Father Heart valve problem Son ADHD Daughter ADHD Sister Diabetes High cholesterol Factor 5 Leiden mutation, heterozygous Brother No problems noted. Surgical History Surgical History (Updated 02/15/22 @ 06:55 by Anisa Dee RN) History of appendectomy History of esophagogastroduodenoscopy (EGD) History of hysterectomy History of myomectomy Hx of colonoscopy Social History Social History Alcohol intake: never Patient Tobacco Use Status: Never used Tobacco Use of substances other than those prescribed or required for medical reasons: No Are you DNR?: No Advance Directives: No Advance Directives Information Provided: Yes service: No Current occupational status: employed Meds Allergies Allergy/AdvReac Type Severity Reaction Status Date / Time No Known Allergies Allergy Verified 02/15/22 07:12 Home Medications Medication Instructions Recorded Confirmed Last Taken Type cholecalciferol (vitamin D3) 50 50 mcg PO DAILY 07/05/21 01/30/22 07/05/21 History mcg (2,000 unit) tablet (Vitamin D3) metronidazole 0.75 % topical cream 1 appl topical BEDTIME 07/05/21 01/30/22 07/04/21 History multivitamin 1 tab PO DAILY 07/05/21 01/30/22 07/05/21 History omeprazole 20 mg capsule,delayed 20 mg PO DAILY@0630 07/05/21 01/30/22 07/05/21 History release atorvastatin 80 mg tablet 80 mg PO BEDTIME 07/20/21 01/30/22 Unknown History albuterol sulfate 90 mcg/actuation 0 mcg inhalation 01/09/22 01/30/22 Unknown History aerosol inhaler bupropion HCl 100 mg tablet 100 mg PO BID 01/09/22 01/30/22 Unknown History azzsdxivuo-zdmwalshzgojq-ozccqkdz tab PO 01/09/22 01/30/22 Unknown History 50 mg-325 mg-40 mg tablet divalproex 250 mg tablet,extended 250 mg PO DAILY 01/09/22 01/30/22 Unknown History release 24 hr brexpiprazole 0.5 mg tablet 1 mg PO DAILY 01/30/22 01/30/22 Unknown History (Rexulti) metoprolol tartrate 25 mg tablet 1 tab PO DAILY 02/15/22 02/15/22 Unknown History metoprolol tartrate 50 mg tablet 50 mg PO BEDTIME 02/15/22 Unknown History Exam Exam Date and Time: February 14, 2022 0957 Pertinent Lab Results Pertinent Lab Results: Laboratory Tests 01/11/22 01/11/22 07:25 07:25 WBC 10.6 Hgb 13.6 Hct 43.2 Plt Count 373 Sodium 139 Potassium 4.6 Chloride 104 Carbon Dioxide 25 BUN 17 H D Creatinine 0.79 Narrative Narrative: EKG 12/2021 Vent. Rate : 068 BPM ? ? Atrial Rate : 068 BPM ?? P-R Int : 150 ms? QRS Dur : 082 ms ? ? QT Int : 400 ms ? ? ? P-R-T Axes : 046 034 019 degrees ?? QTc Int : 425 ms ? Normal sinus rhythm Normal ECG When compared with ECG of 05-JUL-2021 15:33, Rhythm change from atrial fibrillation to sinus.? NM cardiolite stress test 08/2021 IMPRESSION: ? 1.? Myocardial perfusion imaging study shows likely normal myocardial perfusion. 2.? Gated LVEF is 67% during stress and 64% during rest. 3. Transient ischemic dilatation not present. ? EKG component of the test reported separately. ECHO 06/2021 Conclusions: - The left ventricular systolic function is normal.? The ? calculated ejection fraction is 64% by biplane method. ? - Likely aortic valve sclerosis but without any significant? ? ? stenosis.? Assessment and Plan Assessment Anesthesia Assessment: Chart Reviewed Documented by User: Jayla Lagunas MD 02/15/22 08:17 PMF Past Medical History Medical History (Updated 02/15/22 @ 06:55 by Anisa Dee, RN) Asthma High cholesterol HTN (hypertension) Migraines ABHIJIT on CPAP Panic attack Family History Family History Mother Atrial fibrillation Father Heart valve problem Son ADHD Daughter ADHD Sister Diabetes High cholesterol Factor 5 Leiden mutation, heterozygous Brother No problems noted. Family history of problems with anesthesia: No Surgical History Surgical History (Updated 02/15/22 @ 06:55 by Anisa Dee RN) History of appendectomy History of esophagogastroduodenoscopy (EGD) History of hysterectomy History of myomectomy Hx of colonoscopy History of Problems with Anesthesia: No Social History Social History Alcohol intake: never Patient Tobacco Use Status: Never used Tobacco Use of substances other than those prescribed or required for medical reasons: No Are you DNR?: No Advance Directives: No Advance Directives Information Provided: Yes service: No Current occupational status: employed Meds Allergies Allergy/AdvReac Type Severity Reaction Status Date / Time No Known Allergies Allergy Verified 02/15/22 07:12 Home Medications Medication Instructions Recorded Confirmed Last Taken Type cholecalciferol (vitamin D3) 50 50 mcg PO DAILY 07/05/21 01/30/22 07/05/21 History mcg (2,000 unit) tablet (Vitamin D3) metronidazole 0.75 % topical cream 1 appl topical BEDTIME 07/05/21 01/30/22 07/04/21 History multivitamin 1 tab PO DAILY 07/05/21 01/30/22 07/05/21 History omeprazole 20 mg capsule,delayed 20 mg PO DAILY@0630 07/05/21 01/30/22 07/05/21 History release atorvastatin 80 mg tablet 80 mg PO BEDTIME 07/20/21 01/30/22 Unknown History albuterol sulfate 90 mcg/actuation 0 mcg inhalation 01/09/22 01/30/22 Unknown History aerosol inhaler bupropion HCl 100 mg tablet 100 mg PO BID 01/09/22 01/30/22 Unknown History bnvywhmlof-dajphlktlimcx-uqrawvxq tab PO 01/09/22 01/30/22 Unknown History 50 mg-325 mg-40 mg tablet divalproex 250 mg tablet,extended 250 mg PO DAILY 01/09/22 01/30/22 Unknown History release 24 hr brexpiprazole 0.5 mg tablet 1 mg PO DAILY 01/30/22 01/30/22 Unknown History (Rexulti) metoprolol tartrate 25 mg tablet 1 tab PO DAILY 02/15/22 02/15/22 Unknown History metoprolol tartrate 50 mg tablet 50 mg PO BEDTIME 02/15/22 Unknown History Exam Height,Weight and Vital Signs: Height 5 ft 4 in Weight 116.573 kg Vital Signs Temp Pulse Resp BP Pulse Ox O2 Del Method 97.4 F 62 17 118/54 L 97 02/15/22 07:10 02/15/22 07:10 02/15/22 07:10 02/15/22 07:10 02/15/22 07:10 02/15/22 07:10 Airway Mallampati Class: II Neck ROM: Full Loose/Missing/Broken Teeth: Yes (Broken bottom right, missing 1 bottom left) Heart: RRR Lungs: CTAB Assessment and Plan Assessment Anesthesia Assessment: Anesthesia Plan Discussed Final Anesthetic Review Family History of Problems with Anesthesia: No History of Problems with Anesthesia: No NPO: Yes ASA Class: III Final Preanesthetic Review: No Changes in Pt Med Stat, Meds/Allgs Chart Reviewed, Consent Obtained/Reviewed and Anes Risks/Benef Reviewed Patient Risk: Intermediate Procedure Risk: Low Assessment/Block/Sedation in SS: Assess/Block/Sedation-SS Anesthetic Plan Anesthetic Plan: MAC: Disposition: Standard PACU
--- NOTE | 2022-02-15 06:46 | P.OP_ITS ---
Operative Note Operative Note Date of Service: 02/15/22 Narrative: Preop diagnosis: GERD, unable to stop PPI for H.pylori test; dysphagia Postop diagnosis: same Procedure: EGD w/ Bxs Surgeon: Emory Gutiérrez MD Assist: [none] Anesthesia: [] Estimated blood loss: [3cc] Specimen: [gastric antrum] Intraoperative findings: [GE Jxn at 42cm with Irregular Z-line c/w GERD. No Hhiatal hernia nor Alatorre's. Bile in stomach, mild gastritis & evidence of a healing antral erosion (biopsied). No evidence of EoE based on gross esophageal anatomy. Indications: The patient is a 51-year-old woman with longstanding GERD unable to wean from her PPI. She requires preoperative evaluation for bariatric surgery to rule out H pylori. In addition, she reports rare episodes of dysphagia but no impaction. I recommended an EGD and biopsies and reviewed the option of a 2nd opinion from a program/music director. I also reviewed the inherent risks of bleeding, infection, aspiration, perforation or injury that could require emergent surgery, possibility of no change in treatment. She seemed understand and wanted to proceed.] Procedure: [Indications: Procedure: The patient was placed in left lateral decubitus position. Following successful administration of MAC/general anesthesia by the Department of Anesthesia, the Olympus 190 gastroscope was inserted per os into the esophagus under direct vision. The scope is then advanced into the stomach where bile-stained secretions were encountered and aspirated. The stomach was then inflated and the stomach bell including anterior, posterior, lesser curve fundus and antrum all exam. The scope was then advanced to the 2nd portion of the duodenum. The duodenum appeared grossly normal. Biopsy sites were assessed for hemostasis which was good. Biopsies: The scope was used to aspirate gas from the stomach and withdrawn from the patient. GE junction is noted to be at 42 cm from the incisor and with irregular Z-line c/w long-standing GERD. Hiatal hernia was not appreciated. Esophageal morphology was normal with no trachealization/ feline esophagus. The patient tolerated the procedure well and was sent to the recovery area in stable condition. At the patient's request, I contacted Frieda, the pt's daughter, at [phone] to apprise them of the findings. A message was left since there was no answer noting that the procedure went well. Await path. Follow up in Bariatric Clinic as scheduled.
[2022-02-15 06:53] VITALS: BMI 44.1
--- NOTE | 2022-02-15 07:07 | MHC.SHP ---
Pre-Procedural Eval Section A Date of Service: 02/15/22 The patient is an INPATIENT: No The History & Physical has been completed within 30 days and I have reviewed it.: Yes Section B Chief Complaint: reflux Allergies: Allergies Allergy/AdvReac Type Severity Reaction Status Date / Time No Known Allergies Allergy Verified 02/07/22 08:35 Plan I have reviewed the history and physical and performed a pertinent physical examination on my patient. No changes have occurred unless specified.
[2022-02-15 07:10] VITALS: BP 118/54; PULSE 62; RESP 17; TEMP 36.3; O2SAT 97
[2022-02-15 08:02] VITALS: BP 103/62; PULSE 57; RESP 20; TEMP 36.2; O2SAT 100
[2022-02-15 08:17] VITALS: BP 102/57; PULSE 67; RESP 18; TEMP 36.3; O2SAT 98
== END 2022-02-15 09:16 | disposition home or self-care (01) ==
LOC: HO.SSS 06:13
PROVIDERS: PCP Internal Medicine Endocrinology, Diabetes & Metabolism; Visit Provider Surgery
PROC: 0DJ08ZZ Inspection of Upper Intestinal Tract, Via Natural or Artificial Opening Endoscopic (ICD-10-PCS; CPT 43235; principal; 2022-02-15 07:30)
DX: K21.9 Gastro-esophageal reflux disease without esophagitis (principal); R13.10 Dysphagia, unspecified; K29.50 Unspecified chronic gastritis without bleeding; Z79.899 Other long term (current) drug therapy; I10 Essential (primary) hypertension; E78.5 Hyperlipidemia, unspecified; E78.00 Pure hypercholesterolemia, unspecified; I48.0 Paroxysmal atrial fibrillation; G43.909 Migraine, unspecified, not intractable, without status migrainosus; F33.0 Major depressive disorder, recurrent, mild; F41.0 Panic disorder [episodic paroxysmal anxiety]; G47.33 Obstructive sleep apnea (adult) (pediatric); E66.01 Morbid (severe) obesity due to excess calories; Z68.42 Body mass index [BMI] 45.0-49.9, adult; Z99.89 Dependence on other enabling machines and devices
CPT/HCPCS: 43239; 88305; 88342; J2250

== ENCOUNTER 2022-02-28 08:38 | Outpatient (REF) | payer BC, SELFPAY ==
--- NOTE | ~2022-02-28 | US_ITS ---
EXAMINATION: US COMPLETE ABDOMEN WITH LIVER ELASTOGRAPHY CLINICAL INFORMATION: Morbid/severe obesity due to excess calories. COMPARISON: None. TECHNIQUE: Real-time imaging of the abdominal viscera. Noninvasive ultrasound liver fibrosis assessment is performed using Preet ElastPQ point quantification shear wave elastography (2D-SWE) with a C5-2 MHz transducer. Multiple elastography samples are obtained. FINDINGS: PANCREAS: Normal. The visualized pancreatic head and body are normal in appearance. The remainder of the pancreas is obscured from visualization by the overlying bowel gas. ABDOMINAL AORTA: The proximal, middle, and distal aortic segments are normal in caliber. INFERIOR VENA CAVA: Visualized portions are normal. LIVER: The liver demonstrates normal size, contour and increased echogenicity. No focal lesion or intrahepatic biliary duct dilatation. The right lobe measures 16.8 cm in length. The left lobe measures 10.6 cm in length. Portal flow is hepatopedal. Shear wave liver elastography median stiffness is 1.04 m/s (reference: normal median stiffness is 1.3 m/s or less). IQR/median stiffness to assess sampling precision is 0.10 (reference: good quality data set is IQR/median stiffness of 0.15 or less). GALLBLADDER: Normal. The gallbladder is physiologically distended without evidence of stones, sludge, polyps, wall thickening or pericholecystic fluid. COMMON BILE DUCT: Normal in caliber measuring 0.4 cm in diameter. RIGHT KIDNEY: No hydronephrosis. No renal calculi or focal parenchymal lesions. The kidney measures 11.7 cm in maximum dimension. 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 No hydronephrosis. No renal calculi or focal parenchymal lesions. The kidney measures 11.7 cm in maximum dimension. SPLEEN: Normal. The spleen measures 11.0 cm in maximum dimension. FREE FLUID: None. US/US abdomen comp w elastography IMPRESSION: 1. 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 Otherwise, the rest of the abdominal ultrasound is unremarkable. 2. Liver elastography: Median liver stiffness 1.04 m/s suggestive of high probability normal. REFERENCE: Society of Radiologists in Ultrasound Liver Stiffness Thresholds (2019): LIVER STIFFNESS THRESHOLDS: *Liver Stiffness equal or less than 1.3 m/s: High probability of being normal. *Liver Stiffness less than 1.7 m/s: In the absence of other known clinical signs, rules out compensated advanced chronic liver disease. *Liver Stiffness 1.7-2.1 m/s: Suggestive of compensated advanced chronic liver disease but need further test for confirmation. *Liver Stiffness over 2.1 m/s: Rules in compensated advanced chronic liver disease. *Liver Stiffness over 2.4 m/s: Suggestive of clinically significant portal hypertension. QUALITY OF DATA SET: *IQR/Median value equal or less than 0.15 implies a quality data set. *IQR/Median value over 0.15 implies a poor quality data set. SIGNIFICANT CHANGE FROM PRIOR EXAM: Significant change if liver stiffness measurement is 10% or greater from prior exam. OTHER CONSIDERATIONS: The stage of liver fibrosis may be overestimated in the setting of acute hepatitis, liver inflammation, elevated liver function tests, hepatic vascular congestion, obstructive cholestasis, non-fasting state, and infiltrative diseases such as amyloidosis and lymphoma. In some patients with NAFLD, the liver stiffness thresholds for compensated advanced chronic liver disease may be lower. In causes other than viral hepatitis and NAFLD, liver stiffness thresholds are not well established.
--- NOTE | ~2022-02-28 | FL_ITS ---
EXAMINATION: XR FLUOROSCOPY UPPER GI WITH AIR CLINICAL INFORMATION: Bariatric service evaluation, E66.01. Chronic heartburn. COMPARISON: Chest radiographs 01/11/2022. TECHNIQUE: Upper GI series is performed using fluoroscopic evaluation in addition to multiple fluoroscopic spot views. The patient is imaged both upright and prone and using both thick and thin barium sulfate along with effervescent granules. Fluoroscopy time: 1.3 minutes DAP: 20.771 Gycm2 Fluoroscopic spot images: 16 FINDINGS: There is normal esophageal motility. There is no obstruction, stricture, ulceration, or hernia. There is spontaneous gastroesophageal reflux during the exam to the proximal thoracic esophagus. The stomach shows no thickened folds or ulcer crater or outlet obstruction. The duodenal bulb is pliable and without ulcer crater or scarring. There are grouped diverticula second to third portion duodenum, partially overlying stomach on some of the images. The largest diverticulum is smaller than the size of the duodenal bulb. If further characterization is clinically indicated, then limited small bowel series or CT abdomen would be recommended. The visualized duodenal and jejunal mucosal pattern appear normal. Results called and discussed with provider DYANA Crouch on 02/28/2022. FL/FL upper GI w air IMPRESSION: -Spontaneous gastroesophageal reflux throughout the exam to proximal thoracic esophagus. -Normal esophageal motility. No ulceration, hiatal hernia, or stricture. -No gastric outlet obstruction. Duodenal bulb is pliable. No ulceration. -Duodenal diverticula.
== END 2022-02-28 08:39 | disposition home or self-care (01) ==
LOC: HO.US 08:38
PROVIDERS: Visit Provider Physician Assistant Surgical
DX: E66.01 Morbid (severe) obesity due to excess calories (principal)
CPT/HCPCS: 74246; 76705; 76981

== ENCOUNTER → 2022-03-16 12:41 | Outpatient (REF) | payer BC, SELFPAY ==
--- NOTE | 2022-03-16 12:44 | ECG_ITS ---
Hook-up date: 2022-03-16 11:52:00 Duration: 47:59:00 Test Indications: PAF Medications: [id number] QRS complexes 421 Ventricular ectopics which represent <1 % of total QRS comp. 13 Supraventricular ectopics which represent <1 % of total QRS comp. * Paced QRS complexs which represent % of total QRS comp. VENTRICULAR ECTOPY 399 Isolated 13 Bigeminal Cycles 4 Couplets 2 Runs 14 Beats in Runs 11 Beats LONGEST at 125 BPM at 10:14:13 2022-03-18 3 Beats FASTEST at 154 BPM at 10:14:18 2022-03-18 SUPRAVENTRICULAR ECTOPY 11 Isolated 1 Couplets 0 Runs 0 Beats in Runs * Beats LONGEST at * BPM at :: -- * Beats FASTEST at * BPM at :: -- HEART RATES 41 MIN at 11:10:14 2022-03-17 62 AVG 111 MAX at 17:22:17 2022-03-17 LONGEST RR 1.6480 secs at 11:08:31 2022-03-17 S-T LEVELS Channel 1 - 128 mm at 11:52:00 2022-03-16 - 128 mm at 11:52:00 2022-03-16 Channel 2 - 128 mm at 11:52:00 2022-03-16 - 128 mm at 11:52:00 2022-03-16 Channel 3 - 128 mm at 03:11:11 -- - 128 mm at 03:11:11 Basic rhythm Normal sinus rhythm No long pauses. Frequent Sinus bradycardia , 48% of time HR < 60 bpm with lowerst HR of 41 bpm Occasional Premature ventricular complexes 2 episodes of NSVT, longest 11 beats at 125 bpm No sustained Atrial fibrillation One patient reported event correlated with NSR Referred By: Kristian Stover Overread By: MIKI TRINH MD
== END ==
LOC: HO.CARD 12:41
PROVIDERS: Visit Provider Internal Medicine Cardiovascular Disease
DX: I48.0 Paroxysmal atrial fibrillation (principal)
CPT/HCPCS: 93225; 93226

== ENCOUNTER 2022-03-27 07:09 | Outpatient (REF) | payer BC, SELFPAY ==
[2022-03-27 07:15] LABS: MANUAL DIFF FLAG NO
[2022-03-27 07:31] LABS: Basophils Absolute Auto 0.1 X10*3/uL (0.0-0.2); Basophils Percent Auto 0.6 % (0-2); Eosinophils Absolute Auto 0.2 X10*3/uL (0.0-0.4); Eosinophils Percent Auto 2.3 % (0-4); Hematocrit 41.7 % (37.0-47.0); Hemoglobin 13.6 g/dl (12.0-16.0); Imm Gran Abs Auto 0.02 X10*3/uL (0.00-0.03); Imm Gran Pct Auto 0.2 % (0.0-0.4); Lymphocytes Absolute Auto 2.7 X10*3/uL (1.2-4.9); Lymphocytes Percent Auto 32.3 % (20-40); Mean Corpuscular HGB Conc 32.6 g/dl (31.0-35.0); Mean Corpuscular Volume 85.8 fL (80.0-98.0); Mean Platelet Volume 9.6 fL (9.4-12.3); Monocytes Absolute Auto 0.7 X10*3/uL (0.1-1.2); Monocytes Percent Auto 8.7 % (2-11); Neutrophils Absolute Auto 4.7 x10*3/uL (2.0-8.3); Neutrophils Percent Auto 55.9 % (45-73); Platelet Count 348 X10*3/uL (160-400); Red Blood Count 4.86 X10*6/uL (4.20-5.50); Red Cell Distribution Width 14.7 % (11.0-16.0); White Blood Count 8.4 X10*3/uL (4.8-10.8)
[2022-03-27 07:37] LABS: Estimated Average Glucose 100 mg/dL; Hemoglobin A1c % 5.1 %; Prothrombin Time 11.1 SEC (10.0-13.1)
[2022-03-27 07:57] LABS: Alanine Aminotransferase 24 U/L (0-31); Albumin Level 3.9 g/dL (3.5-5.0); Alkaline Phosphatase 83 U/L (39-117); Anion Gap 14 (12-20); Aspartate Amino Transferase 17 U/L (5-31); Bilirubin Total 0.5 mg/dL (0.0-1.0); Blood Urea Nitrogen 11 mg/dL (9-16); C Reactive Protein 0.14 mg/dL (< or = 0.50); Calcium 8.8 mg/dL (8.4-10.2); Carbon Dioxide 24 mmol/L (22-29); Chloride 110 mmol/L (96-108); Cholesterol 164 mg/dL; Estimated Glomerular Filt Rate > 60; Glucose Random 102 mg/dL (60-115); HDL Cholesterol 27 mg/dL; LDL Cholesterol Calculated 117 mg/dl; Potassium 4.6 mmol/L (3.3-5.1); Sodium 143 mmol/L (135-145); Total Protein 6.6 g/dL (6.5-8.0); Triglycerides 102 mg/dL
[2022-03-27 08:21] LABS: Insulin 14 uU/mL (2-29); TSH reflex Free T4 0.64 uIU/mL (0.32-4.0)
== END 2022-03-27 07:10 | disposition home or self-care (01) ==
LOC: HO.LAB 07:09
PROVIDERS: PCP Internal Medicine Endocrinology, Diabetes & Metabolism; Visit Provider Surgery
DX: E66.01 Morbid (severe) obesity due to excess calories (principal)
CPT/HCPCS: 36415; 80053; 80061; 83036; 83525; 84443; 85025; 85610; 85730; 86140; 86850; 86900; 86901

== ENCOUNTER 2022-04-04 06:06 | Inpatient (IN) | payer BC, SELFPAY ==
[2022-03-27 14:08] VITALS: BMI 43.6
--- NOTE | 2022-03-30 23:47 | MHC.SHP ---
Pre-Procedural Eval Section A Date of Service: 03/30/22 The patient is an INPATIENT: Yes The History & Physical has been completed within 30 days and I have reviewed it.: Yes Section B Chief Complaint: obesity Relevant Family History (Specify if Yes): No Relevant Social History: None Present Medications: None Medical History: No relevant PMH History of Previous Operations: No relevant previous surgery Allergies: Allergies Allergy/AdvReac Type Severity Reaction Status Date / Time No Known Allergies Allergy Verified 03/26/22 12:57 Review of Systems Sugical H&P ROS: Negative: Constitution, Cardiovascular, Respiratory, Neurological, Psychiatric, Hem-Onc, Allergic/Immunologic, Gastrointestinal, Genitourinary, Musculoskeletal, Integumentary, Endocrine and Eyes/Ears/Nose/Throat Exam Surgical H&P Exam: Normal: HEENT, Normal: Heart, Normal: Lungs, Normal: Extremities, Normal: Abdomen, Normal: Skin and Normal: Neurological Plan Diagnosis/Plan: Unchanged I have reviewed the history and physical and performed a pertinent physical examination on my patient. No changes have occurred unless specified.
[2022-04-03 12:36] LABS: COVID-19 Test Negative (Negative); IDNOW Serial# 9DD0AD1C
[2022-04-04] VITALS (15 sets, daily range): BP systolic 104–141; BP diastolic 49–78; PULSE 62–81; RESP 16–25; TEMP 36.3–36.9; O2SAT 95–100
[2022-04-04] MEDS: Lactated Ringers 1,000 ML 999 ML IV ×2 (06:48)
--- NOTE | 2022-04-04 07:13 | HO.ANESPROP2 ---
[facility] Active Problems Active Problems: All Active Problems (Updated 03/27/22 @ 14:04 by Mansi Gore RN) PAF (paroxysmal atrial fibrillation) (Acute) Elevated troponin (Acute) Morbid obesity (Acute) Major depressive disorder, recurrent, mild (Acute) Panic disorder (Acute) GERD (gastroesophageal reflux disease) (Acute) Dysphagia (Acute) Nausea (Acute) ABHIJIT on CPAP (Acute) Past Medical History Medical History Anxiety Asthma High cholesterol History of atrial fibrillation HTN (hypertension) Migraines On beta jeanette at home ABHIJIT on CPAP Panic attack Family History Family History Mother Atrial fibrillation Father Heart valve problem Son ADHD Daughter ADHD Sister Diabetes High cholesterol Factor 5 Leiden mutation, heterozygous Brother No problems noted. Family history of problems with anesthesia: No Surgical History Surgical History History of appendectomy History of esophagogastroduodenoscopy (EGD) History of hysterectomy History of myomectomy Hx of colonoscopy History of Problems with Anesthesia: No Social History Social History Are you a primary assistant child care teacher to a significant other at home: No Do you presently have visiting nurse or other home services: No Alcohol intake: never Patient Tobacco Use Status: Never used Tobacco Use of substances other than those prescribed or required for medical reasons: No Have you been hit, kicked, punched, or otherwise hurt by someone within the past year? If so, by whom?: No Are you DNR?: No Advance Directives: No Advance Directives Information Provided: Yes (Mailed w/ preop instructions) Advance Directives on File: No Recently lost weight without trying: No How much weight loss: 34pounds or more Eating poorly because of decreased appetite: No Nutrition screen score: 4 Nutrition Risks: No Nutritional Risk Patient : No : No Poor oral hygiene: No service: No Current occupational status: employed Meds Allergies Allergy/AdvReac Type Severity Reaction Status Date / Time No Known Allergies Allergy Verified 03/26/22 12:57 Active Medications: Current Medications Lactated Ringer's (Lr) 1,000 mls @ 999 mls/hr IV .Q1H1M ANDREW Stop: 04/04/22 08:15 Last Admin: 04/04/22 06:48 Dose: 999 mls/hr Home Medications Medication Instructions Recorded Confirmed Last Taken Type cholecalciferol (vitamin D3) 50 50 mcg PO DAILY 07/05/21 03/27/22 07/05/21 History mcg (2,000 unit) tablet (Vitamin D3) metronidazole 0.75 % topical cream 1 appl topical BEDTIME 07/05/21 03/27/22 07/04/21 History multivitamin 1 tab PO DAILY 07/05/21 03/27/22 07/05/21 History omeprazole 20 mg capsule,delayed 20 mg PO DAILY@0630 07/05/21 03/27/22 07/05/21 History release atorvastatin 80 mg tablet 80 mg PO BEDTIME 07/20/21 03/27/22 Unknown History albuterol sulfate 90 mcg/actuation 0 mcg inhalation 01/09/22 03/26/22 Unknown History aerosol inhaler bupropion HCl 100 mg tablet 100 mg PO BID 01/09/22 03/27/22 Unknown History iwhvfbnerl-tnbwkfnxyqtgs-qeujmmxo tab PO 01/09/22 03/26/22 Unknown History 50 mg-325 mg-40 mg tablet divalproex 250 mg tablet,extended 250 mg PO BEDTIME 01/09/22 03/27/22 Unknown History release 24 hr brexpiprazole 0.5 mg tablet 1 mg PO DAILY 01/30/22 03/27/22 Unknown History (Rexulti) metoprolol tartrate 25 mg tablet 1 tab PO DAILY 02/15/22 03/27/22 04/04/22 History metoprolol tartrate 50 mg tablet 50 mg PO BEDTIME 02/15/22 03/27/22 Unknown History Exam Exam Date and Time: April 04, 202213 Height,Weight and Vital Signs: Height 5 ft 4 in Weight 115.212 kg Last Vital Signs Temp 97.4 F 04/04/22 06:34 Pulse 62 04/04/22 06:34 Resp 16 04/04/22 06:34 BP 104/49 L 04/04/22 06:34 Pulse Ox 95 04/04/22 06:34 O2 Del Method 04/04/22 06:34 Pertinent Lab Results Pertinent Lab Results: Laboratory Tests 03/27/22 04/03/22 07:15 12:07 COVID-19 (ADRYAN) Negative COVID-19 Clin Com See Note Blood Type O Positive Antibody Screen NEGATIVE Airway Mallampati Class: II TM Dist: >3cm Neck ROM: Full Loose/Missing/Broken Teeth: No Heart: RRR Lungs: CTA Assessment and Plan Assessment Anesthesia Assessment: Anesthesia Plan Discussed and Chart Reviewed Final Anesthetic Review Family History of Problems with Anesthesia: No History of Problems with Anesthesia: No NPO: Yes ASA Class: III Final Preanesthetic Review: Meds/Allgs Chart Reviewed, Consent Obtained/Reviewed and Anes Risks/Benef Reviewed Patient Risk: Intermediate Procedure Risk: Intermediate Anesthetic Plan Anesthetic Plan: GA Disposition: Standard PACU
--- NOTE | 2022-04-04 07:49 | P.BOP_ITS ---
Brief Operative Note Date of Service: 04/04/22 Pre-op diagnosis: Morbid obesity and comorbidities (see below) Post-op diagnosis: same Procedure: INITIAL PATIENT BMI ON PRESENTATION AT OUR OFFICE: 49.6 kg/m2 LAST BMI BEFORE SURGERY: 43.9 kg/m2 COMORBIDITIES:sleep apnea on CPAP, atrial fibrilation, hypertension, hyperlipidemia, GERD, liver steatosis, depression, anxiety, seizures, asthma ?The patient presented to the Weight Management Program with significant obesity that was negatively impacting the patient's comorbidities as listed above.? The program is a phased program with a special focus on preoperative medical weight management to promote substantial weight loss and prepare the patients for the second phase of the program: bariatric surgery. The patient participated in an intensive weekly lifestyle ?intervention and exercise program during which the patient ?has lost between the initial office visit and the last preoperative visit 32lbs, or 8.88% of initial actual body weight. It was deemed appropriate for the patient to now have bariatric surgery. In light of the current Covid-19 pandemic and the well documented strong association of obesity and increased risk of worse outcomes if infected with Covid-19 (REFERENCES: https://pubmed.ncbi.nlm.nih.gov/76067009/ ,? https://pubmed.ncbi.nlm.nih.gov/79835799/ ), any delay in undergoing bariatric surgery may lead to the patient's worsening health condition and increased?risk of more severe Covid-19 disease if infected. In addition a recent?study from [facility] published in [employer] on 07/10/2021 ([email or web address]) found that, among patients with obesity, substantial weight loss achieved with surgery was associated with improved outcomes of COVID-19 infection. The findings suggest that obesity can be a modifiable risk factor for the severity of COVID-19 infection. In addition, the patient met the BMI-criteria for bariatric surgery based on the BMI on initial presentation. The patient should not be penalized for achieving such weight loss because ?it is not sustainable long-term without surgical intervention and it was achieved in preparation for bariatric surgery ?under my direction and based on my published research ([email or web address]).[email or web address] and? https://www.soard.org/article/[email or web address](46)96932-X/pdf ) ?that a 10% preoperative weight loss improves long-term weight loss after surgery and reduces perioperative complications.? Insurance carriers such as [facility] have en dorsed my recommendations ?and have included in their policies criteria to include a 10% preoperative weight loss requirement. PROCEDURE: Esophago-gastroscopy, laparoscopic sleeve gastrectomy and lap aroscopic gastropexy INDICATIONS: This is a 51 year-old female who was electively scheduled for laparoscopic, possibly open sleeve gastrectomy. The risks and complications of the procedure were discussed with the patient in advance, particularly the possibility of ; pulmonary embolism; staple line leak; bleeding; GERD; cardiac, pulmonary, or renal complications; as well as long-term problems such as insufficient weight loss, vitamin deficiency, strictures, or ulcers. The patient understood all the risks, and was in agreement to proceed with surgery. DESCRIPTION OF PROCEDURE: After informed consent was obtained from the patient, the patient was given preoperative antibiotics, and was transferred to the operating room. After successful induction of general anesthesia, pneumatic compression devices were placed on both lower extremities. An upper endoscopy was performed next. The oropharynx and esophagus appeared to be within normal limits. There was no diaphragmatic hernia present consistent with the findings of the preoperative upper GI. The stomach was entered. Then after all fluid and air were suctioned and the stomach was fully decompressed, the scope was withdrawn and secured in the mid esophagus. The patient was then prepped and draped in the usual sterile manner, and abdominal access was established at the right upper quadrant with the Dakota technique. A 12 mm blunt port was inserted, and the abdomen was insufflated with CO2 to a pressure of 15 mmHg. Under direct visualization, additional ports were placed, specifically two 5 mm Versi-step ports to the left upper quadrant, and a 5 mm Versi-Step port to the right upper quadrant. 1% lidocaine plain was used to infiltrate all port sites as well as all fascia defects. Using the EndoClose suture passer device, I placed a #1 Polysorb tie across the falciform ligament in order to retract it up against the abdominal wall and prevent injury of the ligament with our instruments during the procedure. Following that, the patient was placed in a steep reverse Trendelenburg position. An additional 5 mm port was placed to the right flank for the Mediflex retractor that was used to retract the left lobe of the liver. The gastro-esophageal fat pad was opened with the ultrasonic device (Thunderbeat, Olympus) and the anterior esophagus and hiatus were exposed. The angle of His was opened with the ultrasonic device the fundus of the stomach from any diaphragmatic and splenic attachments. I then opened the gastrocolic ligament between the transverse colon and the greater curvature of the stomach with the ultrasonic device to enter the lesser sac and facilitate the ligation of the short gastric vessels. I started at a mid-point along the greater curvature and using the Thunderbeat, all short g astric vessels were divided all the way to the angle of His until the left april was completely dissected at its entirety. I then divided the gastro-colic ligament distally to a distance of about 3-4 cm proximal to the pylorus.? The stomach was then divided transversely with one Endo ZACH-45 purple, one ZACH- 45 orange loads and four ZACH-60 articulating orange loads using the AEON stapler and loads. Every effort was made that the gastric sleeve had a tubular shape and an even caliber throughout. Once the sleeve resection was completed, the staple line of the gastric sleeve was reinforced with Hemoclips. The resected stomach was retrieved without difficulty from the Dakota port. A gastropexy was then performed in order to prevent postoperative GERD and partial gastric volvulus. Several interrupted 2.0 Surgidac sutures were placed between the sleeve's staple line and the previously divided greater omentum and gastro-colic ligament using the Endo-Stitch device. ?An upper endoscopy was performed. There was no narrowing at the GE junction. The scope was easily advanced all the way to the pylorus which was clearly visualized. There was no narrowing anywhere and the sleeve's caliber was even throughout. The sleeve's staple line was inspected and there was no evidence of ischemia, bleeding or dehiscence. At that point the gastroscope was withdrawn from the patient?s mouth while we were decompressing the bowel and the stomach from any remaining air. I looked into the lesser sac to see how the sleeve was situating and it was situating well. There was no bleeding from the staple line, spleen, or short gastric vessels. The Mediflex retractor was removed, and the undersurface of the liver was inspected and there was no bleeding. The patient was placed in supine position. I closed the fascial defect of the 12 mm port site with a figure of eight #1 Polysorb suture. Then 30cc of Ropivacaine plain with 10 mg of Dexamethasone were used to infiltrate the fascial closure as well as all skin incisions. A total of 7ml of Zynrelef was applied in the Dakota wound. At this point, the abdomen was deflated, all ports were removed under direct vision, and no bleeding was noted from any of the port sites. The skin incisions were irrigated with saline and were closed with 4-0 absorbable monofilament sutures. Steri-Strips and OpSites were used to cover all incisions. The patient was extubated and was transferred in stable condition to the recovery room for further care. I was present and performed all [place] parts of the procedure. Mr Jiménez was the assistant toddler teacher. There were no residents to assist with this case. Bacilio Romo MD, PhD, FACS Surgeon: Reece Romo MD Anesthesia: GETA, local and other (TAP block and 7ml Zynrelef) Was an Women Specialist used for this Procedure?: Yes Women Specialist: Dread Jiménez Estimated blood loss (mL): 10 IV fluids (mL): 2,400 Urine output (mL): 0 (No Guillaume to record) Pathology: other (Stomach) Condition: stable Disposition: PACU
--- NOTE | 2022-04-04 07:49 | PM.PNGS ---
Subjective Subjective Date of Service: 04/05/22 Interval history: Patient has mild incisional pain, but was able to ambulate and use the incentive spirometer. She is tolerating phase 1 bariatric diet Physical Exam Vital Signs: Vital Signs: Last Vital Signs Temp 97.4 F 04/04/22 06:34 Pulse 62 04/04/22 06:34 Resp 16 04/04/22 06:34 BP 104/49 L 04/04/22 06:34 Pulse Ox 95 04/04/22 06:34 O2 Del Method 04/04/22 06:34 BMI result Body Mass Index 43.6 GI: Inspection: Yes normal to inspection, Yes incision (dry, clean and intact) and Yes obesity Extrem: Right lower extremity: normal to inspection (no calf tenderness) Left lower extremity: normal to inspection (no calf tenderness) Objective Data Active Medications Albuterol Sulfate (Albuterol Sulfate (0.083%) 2.5 Mg/3 Ml Vial.Neb) 2.5 mg INHALE ONCE PRN PRN Reason: Wheezing Fentanyl (Fentanyl Citrate/Pf 100 Mcg/2 Ml Vial) 50 mcg IVPUSH Q5M PRN; Protocol PRN Reason: Pain, Severe (Pain Scale 7-10) Fentanyl (Fentanyl Citrate/Pf 100 Mcg/2 Ml Vial) 25 mcg IVPUSH Q5M PRN; Protocol PRN Reason: Pain, Moderate (Pain Scale 4-6 Lactated Ringer's (Lr) 1,000 mls @ 999 mls/hr IV .Q1H1M ANDREW Stop: 04/04/22 08:15 Last Admin: 04/04/22 06:48 Dose: 999 mls/hr Documented By: CHRISTOPHER Promethazine HCl 12.5 mg/ (Sodium Chloride) 50.5 mls @ 202 mls/hr IV ONCE PRN PRN Reason: Nausea and Vomiting Ondansetron HCl (Ondansetron Hcl 4 Mg/2 Ml Vial) 4 mg IVPUSH ONCE PRN PRN Reason: Nausea and Vomiting Oxycodone HCl (Oxycodone Hcl Immed Release 5 Mg Tablet) 5 mg PO ONCE PRN PRN Reason: Pain, Severe (Pain Scale 7-10) Labs CBC & Chem 7: 04/05/22 05:40 04/05/22 05:40 Labs: Laboratory Results - last 24 hr 04/03/22 12:07 COVID-19 (ADRYAN) Negative COVID-19 Clin Com See Note Procedures Date of Service Date of Service: 04/05/22 Progress Note: A&P Assessment and plan (1) Morbid obesity: Status: Acute Assessment and Plan: s/p laparoscopic sleeve gastrectomy and gastropexy Doing well Check am labs. If OK, will discharge home? (2) ABHIJIT on CPAP: Status: Acute (3) GERD (gastroesophageal reflux disease): Status: Acute (4) PAF (paroxysmal atrial fibrillation): Status: Acute (5) High cholesterol: Status: Acute (6) Asthma: Status: Acute (7) Anxiety: Status: Acute (8) HTN (hypertension): Status: Acute (9) Major depressive disorder, recurrent, mild: Status: Acute (10) Steatosis, liver: Status: Acute (11) Seizure: Status: Acute (12) S/P laparoscopic sleeve gastrectomy: Status: Acute Time Spent With Patient Time: Total time spent is greater than 50% in coordination of care (as documented) at patient's floor/unit and/or counseling patient: Quality Stroke Does the patient have a stroke diagnosis?: No VTE Prior VTE?: No VTE Risk Level:: Surgical - moderate VTE Device Contraindication: N/A - Device Ordered VTE Drug Contraindication: Treatment Not Indicated
--- NOTE | 2022-04-04 10:18 | PM.DS ---
DS: Providers Provider Date of Service: 04/05/22 Date of admission: 04/04/22 06:06 Primary care physician: Unknown Physician DS: Diagnosis Discharge Diagnosis (1) Morbid obesity: Status: Acute (2) ABHIJIT on CPAP: Status: Acute (3) GERD (gastroesophageal reflux disease): Status: Acute (4) PAF (paroxysmal atrial fibrillation): Status: Acute (5) High cholesterol: Status: Acute (6) Asthma: Status: Acute (7) Anxiety: Status: Acute (8) HTN (hypertension): Status: Acute (9) Major depressive disorder, recurrent, mild: Status: Acute (10) Steatosis, liver: Status: Acute (11) Seizure: Status: Acute DS: Summary Hospital Course Hospital Course: ADMITTING DIAGNOSIS: morbid obesity, asthma, hypertension, hyperlipidemia, abhijit ? DISCHARGE DIAGNOSIS: same, s/p laparoscopic sleeve gastrectomy ? PAST SURGICAL HISTORY: appendectomy, hysterectomy ? PROCEDURE: upper endoscopy, laparoscopic sleeve gastrectomy ? DISCHARGE SUMMARY: ? History of Present Illness: ? The patient is a?51 year-old woman with a BMI of?49.6 kg/m2 and associated co-morbidities as described above. The patient had extensive work-up,lost?34.8 lbs preoperatively and was electively scheduled for laparoscopic, possible open sleeve gastrectomy and gastropexy. Risks and complications of the surgery were discussed with the patient in advance, particularly the possibility of , pulmonary embolism, anastomotic leak, bleeding, bowel injury, GERD, cardiac, renal or pulmonary complications. The patient understood all the risks and was in agreement with the surgical plan. ? Hospital Course: ? The patient underwent an uneventful laparoscopic sleeve gastrectomy with gastropexy on the day of admission. Postoperatively, the patient was transferred to the surgical floor. The patient received IV Acetaminophen and IV dilaudid for pain control. Patient was started on bariatric phase 1 diet POD #0. On postoperative day one, the patient was feeling well without nausea, vomiting, fevers, or tachycardia. The patient had some mild incisional pain and the abdomen was soft. ? On the morning of postoperative day one, the patient was continued on 1 ounce of water or ice every half hour. During the day, the patient did fairly well, having some incisional pain, but able to ambulate adequately and to tolerate liquids well. ? Since the patient is doing well, we decided that the patient was ready to be discharged. The patient was given instructions to follow-up with me next week and to call my office for any fever over 101, persistent abdominal pain, nausea, vomiting, GERD, symptoms of DVT such as calf tenderness, or leg swelling, or pulmonary embolism such as chest pain or shortness of breath. The patient was also instructed to drink 40-60 ounces of liquids per day using the 1-ounce cups. The patient had been given prescriptions for Tylenol for pain, Zofran prn for nausea, and pantoprazole and carafate previously. The patient was encouraged to ambulate and use the incentive spirometer. The patient was allowed to shower, but no baths, and encouraged to stay active at home. All of these instructions were given to the patient personally. All questions were answered and the patient understood all instructions, the instructions were also given to the patient in print. Time Spent with Patient Time attestation: Total time spent providing and/or coordinating discharge services: Discharge coordination time: Less than 30 minutes Quality: Safe Use of Opioids Does Pt have an Active Cancer Diagnosis on the Problem List?: No Quality: Stroke Does the patient have a stroke diagnosis?: No Physical Exam Vital Signs: Vital Signs: Last Vital Signs Temp 97.4 F 04/04/22 06:34 Pulse 62 04/04/22 06:34 Resp 16 04/04/22 06:34 BP 104/49 L 04/04/22 06:34 Pulse Ox 95 04/04/22 06:34 O2 Del Method 04/04/22 06:34 BMI result Body Mass Index 43.6 DS: Data Data Completed and Pending Pending studies at discharge: Pending at discharge 04/04/22 09:27 Surgical [PTH] Routine Labs on day of discharge: Laboratory Results - last 24 hr 04/03/22 12:07 COVID-19 (ADRYAN) Negative COVID-19 Clin Com See Note Discharge Plan Discharge Patient Disposition: Home, Self-Care Discharge Diagnosis: s/p laparoscopic sleeve gastrectomy Referrals: Physician,Unknown J [Primary Care Provider] - 1 Week Discharge Medications: Continued metronidazole 0.75 % cream 1 appl topical BEDTIME atorvastatin 80 mg tablet 80 mg PO BEDTIME pantoprazole 40 mg tablet,delayed release (DR/EC) 40 mg PO DAILY Qty: 30 2RF sucralfate 100 mg/mL suspension 10 ml PO BID Qty: 400 2RF ondansetron HCl 4 mg tablet 4 mg PO Q12H Qty: 20 0RF divalproex 250 mg tablet extended release 24 hr 250 mg PO BEDTIME albuterol sulfate 90 mcg/actuation HFA aerosol inhaler 0 mcg inhalation bupropion HCl 100 mg tablet 100 mg PO BID Rexulti 0.5 mg tablet 1 mg PO DAILY Held aspirin 81 mg capsule 81 mg PO DAILY 90 Days Qty: 90 1RF Hold Instructions: until discussed with Dr Romo metoprolol tartrate 50 mg tablet 50 mg PO BEDTIME Hold Instructions: Resume on 04/05/22. Check your blood pressure daily in the evening and report it to Dr. Romo. Don't take the Metoprolol before Dr. Romo gets back to you. Don't take the Metoprolol if blood pressure is below 110/70 metoprolol tartrate 25 mg tablet 1 tab PO DAILY Hold Instructions: Resume on 04/05/22. Check your blood pressure daily in the evening and report it to Dr. Romo. Don't take the Metoprolol before Dr. Romo gets back to you. Don't take the Metoprolol if blood pressure is below 110/70 vcejfiozws-pbqustqrxyeim-ucnz 50-325-40 mg tablet PO Hold Instructions: until discussed with Dr Romo Discontinued omeprazole 20 mg Capsule,Delayed Release(Dr/Ec) 20 mg PO DAILY@0630 multivitamin Tablet 1 tab PO DAILY cholecalciferol (vitamin D3) [Vitamin D3] 50 mcg (2,000 unit) Tablet 50 mcg PO DAILY Discharge Orders: Discharge Order (Routine); Ordered 04/05/22 Ordered By: Reece Romo Activity on Discharge: No heavy lifting Stand Alone Forms: Patient Portal Discharge page Care Plan Goals: weight loss Health Concerns: morbid obesity Plan of Treatment: No tub baths, sex or returning to work until discussed at first post op appointment. No exercise, alcohol, tobacco or illegal drug use. Continue to use incentive spirometer hourly while awake. Walk in home for 5- 10 minutes every 2 hours during the first week. Follow all instructions in the bariatric handbook and call with any questions.Discharge Instructions 1. Please call your doctor or come back to the emergency room should any new symptoms arise. 2. You will receive a courtesy call from [facility] 24-48 hours after discharge. 3. Activity: abstain from alcohol, practice limited stair climbing, no bending, no driving, no exercise, no illicit substances, no lifting, no sex, no tub bath, no work. 4. Diet: continue as discussed with Dr. Romo. 5. Dressing Change/Wound Care: Your incision is covered by clear bandages and guaze underneath. If the area is tender, you may apply an ice pack for short intervals (no more than 20 minutes on, followed by at least 20 minutes off). Do not apply heat. Do not use creams, lotions, or topical antibiotics unless instructed to do so by your surgeon. These can cause infection or allergic reaction. 6. Call your doctor if: - Your temperature exceeds 101.5 F - You experience excessive pain or swelling - You have an unexpected reaction to medication - You have excessive bleeding - You experience continued vomiting/nausea - Your incision begins to separate - Your incision shows signs of infection such as increased redness, swelling, excessive pain, heat, or drainage (light blood or clear fluid is normal) 7. General instructions: No lifting greater than 5 lbs for the next 4 weeks[address] within 24 hours of taking narcotic pain medications. If you do not move your bowels in the next 2 days, please take milk of magnesia over the counter. Please follow the post op diet and do not advance your diet until you are seen in the office in about 2 weeks. Please walk around your home every hour or two to prevent blood clots from forming in your legs. You do not need to wake from sleeping to walk. Please sleep in a bed or couch to prevent kinking at the hips and knees. Please take your incentive spirometer (your lung radiology supervisor) home with you and use it for the next few days to prevent pneumonias. You may shower, no hot tubs, baths or swimming pools. Please call the office with any questions or concerns such as increasing abdominal pain, fever, chills, shortness of breath, chest pain, leg pain or swelling, or redness or drainage from your incisions. Please stay on stage 3 diet which includes sugar free clear liquids such as ice pops and jello and broth and crystal light. Avoid all carbonation. Please drink 3 protein shakes with at least 25-30 grams of protein daily or 3 of the Celebrate 4:1 shakes which can be purchased in our office. The Celebrate shakes have all of the bariatric vitamins you need if you consume these shakes. If you are drinking other protein shakes, you will need to purchase the Celebrate multivitamins and calcium that we provide in the office (they will provide all the vitamins you need). Please make sure you are consuming at least 40-60 ounces of water in addition to your 3 protein shakes daily. Do not hesitate to contact the office with any questions at . The patient's medical history has been reviewed and they are considered low risk for post op DVT and therefore DVT prophylaxis is not considered necessary. Travel after surgery was reviewed. The patient has not disclosed any travel plans during the first 30 days after surgery and they have been advised that within the first 30 days after surgery any bus, plane, train or car travel over 2 hours in duration is contraindicated due to the possibility of developing blood clots from immobility. Any travel, needs to include periods of ambulation of 10 minutes in duration every 2 hours.? The patient was instructed to discuss any plans for travel during this period with their bariatric surgeon. Assessment: stable s/p laparoscopic sleeve gastrectomy
[2022-04-04] MEDS: Famotidine/PF 20 MG/2 ML VIAL IVPUSH ×2 (11:08→21:07)
[2022-04-04] MEDS: Lactated Ringers 1,000 ML 125 ML IVCONT ×2 (11:08→20:09)
[2022-04-04 11:16] LABS: Hematocrit 43.2 % (37.0-47.0); Hemoglobin 13.9 g/dl (12.0-16.0)
[2022-04-04 11:30] LABS: Anion Gap 15 (12-20); Blood Urea Nitrogen 6 mg/dL (9-16); Calcium 8.7 mg/dL (8.4-10.2); Carbon Dioxide 24 mmol/L (22-29); Chloride 104 mmol/L (96-108); Creatinine Clr Calc Pharmacy 107.8; Estimated Glomerular Filt Rate > 60; Glucose Random 175 mg/dL (60-115); Potassium 4.5 mmol/L (3.3-5.1); Sodium 138 mmol/L (135-145)
[2022-04-04] MEDS: ceFAZolin Sodium/Dextrose,Iso 2 GM/50 ML PIGGYBACK IV (13:58)
[2022-04-04] MEDS: ondansetron HCL 4 MG/2 ML VIAL IVPUSH (17:20)
[2022-04-04] MEDS: Metoprolol Tartrate 50 MG TABLET PO (21:07)
[2022-04-04] MEDS: Divalproex Sodium ER 250 MG TAB.ER.24H PO (21:07)
[2022-04-05] VITALS: BP 130/74; PULSE 66; RESP 16; TEMP 36.2; O2SAT 96
[2022-04-05] MEDS: ondansetron HCL 4 MG/2 ML VIAL IVPUSH ×2 (00:53→09:24)
[2022-04-05] MEDS: Lactated Ringers 1,000 ML 125 ML IVCONT (03:55)
[2022-04-05 04:00] VITALS: BP 129/67; PULSE 76; RESP 16; TEMP 36.8; O2SAT 95
[2022-04-05 06:27] LABS: Basophils Percent Auto 0.1 % (0-2); Eosinophils Percent Auto 0.1 % (0-4); Hematocrit 38.7 % (37.0-47.0); Hemoglobin 12.6 g/dl (12.0-16.0); Imm Gran Abs Auto 0.09 X10*3/uL (0.00-0.03); Imm Gran Pct Auto 0.5 % (0.0-0.4); Lymphocytes Absolute Auto 2.2 X10*3/uL (1.2-4.9); Lymphocytes Percent Auto 13.1 % (20-40); MANUAL DIFF FLAG SCAN; Mean Corpuscular HGB Conc 32.6 g/dl (31.0-35.0); Mean Corpuscular Hemoglobin 27.4 pg (27.0-33.0); Mean Corpuscular Volume 84.1 fL (80.0-98.0); Mean Platelet Volume 10.3 fL (9.4-12.3); Monocytes Absolute Auto 1.7 X10*3/uL (0.1-1.2); Monocytes Percent Auto 10.2 % (2-11); Platelet Count 309 X10*3/uL (160-400); Red Cell Distribution Width 14.7 % (11.0-16.0); SCAN SMEAR FLAG 1; White Blood Count 17.1 X10*3/uL (4.8-10.8)
[2022-04-05 06:42] LABS: Anion Gap 15 (12-20); Blood Urea Nitrogen 6 mg/dL (9-16); Carbon Dioxide 21 mmol/L (22-29); Chloride 107 mmol/L (96-108); Estimated Glomerular Filt Rate > 60; Glucose Random 102 mg/dL (60-115); Potassium 4.3 mmol/L (3.3-5.1); Sodium 139 mmol/L (135-145)
--- NOTE | 2022-04-05 06:55 | HO.POSTANES ---
Post Anesthesia Evaluation Post Anesthesia Evaluation Vital Signs: Vital Signs Temp Pulse Resp BP Pulse Ox O2 Del Method 04/05/22 04:00 98.3 F 76 16 129/67 95 Room Air 04/05/22 00:00 97.1 F 66 16 130/74 96 Room Air 04/04/22 20:06 97.4 F 81 16 134/71 95 Room Air Anesthesia: General Endotracheal-GETA Mental Status: Awake Pain Control: Satisfactory Nausea/Vomiting: None Hydration: Adequate Anesthesia-Related Issues: No Anes. Related Issues
[2022-04-05 07:19] LABS: SLIDE REVIEW VERIFIED
[2022-04-05 07:42] VITALS: BP 136/73; PULSE 72; RESP 18; TEMP 36.5; O2SAT 95
--- NOTE | 2022-04-05 08:59 | MHC.CM.PN ---
EMR REVIEWED CM MET WITH PATIENT WHO REPORTS SHE LIVES WITH SON IN SINGLE FAMILY HOME., SHE USES A CPAP AT BEDTIME AND HAS NO HOME SERVICES . PCP IS DAYA CARMONA. PT HAS BEEN COVID VAX X 3 WITH [facility]. PT DECLINES TO FILL OUT HCP AT THIS TIME. HOME TODAY WITH NO SERVICES, SON DARRIAN WILL TRANSPORT
[2022-04-05] MEDS: buPROPion HCL 100 MG TABLET PO (09:24)
[2022-04-05] MEDS: 0.9 % Sodium Chloride Flush 3 ML SYRINGE IVFLUSH (09:24)
[2022-04-05] MEDS: Metoprolol Tartrate 25 MG TABLET PO (09:24)
[2022-04-05] MEDS: Famotidine/PF 20 MG/2 ML VIAL IVPUSH (09:24)
--- OUTSIDE RECORDS SUMMARY | 2022-04-11 13:56 | XMS_ITS | Continuity of Care Document ---
:1970 Author Organization [facility] Address [address] [facility], [address] [address]- Care Team Providers Name Role Phone Clary Cat MD, Jennifer John Primary Care Physician Encounter 03/29/22 - 04/05/22 [facility] [address], [address] [place] [address]- Attending Physician: Zane Card MD Admitting Physician: Zane Card MD Referring Physician: Zane Card MD Allergies, Adverse Reactions, Alerts Substance Reaction Severity Status Other Environmental Allergy camphor Acti ve Medications acetaminophen-HYDROcodone 325 mg-5 mg oral tablet See Instructions, PRN Pain , Moderate, 1-2 tablets By Mouth Every 6 hours as needed for pain. not toexceed 8 tablets/day, # 40 tablet, 0 Refills, Maintenance, 12/31/17 8:15:52 EDT, Tablet Start Date: 12/31/17 Status: Orderedatorvastatin 80 mg oral tablet 1 tablet = 80 mg, By Mouth, Daily at bedtime, # 30 tablet, 0 Refills, Maintenance, Tablet Start Date: 12/19/17 Status: OrderedEffexor XR 150 mg oral capsule, extended release 150 mg, 1, capsule, By Mouth, Daily in AM, # 30 capsule, Refills 0, Maintenance, 12/19/17 9:43:23 EDT Start Date: 12/19/17 Status: OrderedFish Oil 1000 mg oral capsule 1 capsule = 1,000 mg, By Mouth, Daily, 0 Refills, Maintenance, 07/16/12 16:01:54 EST Start Date: 07/16/12 Status: Orderedhydrochlorothiazide 25 mg oral tablet 25 mg, 1, tablet, By Mouth, Daily in AM, # 30 tablet, Refills 0, Maintenance, 12/19/17 9:46:04 EDT Start Date: 12/19/17 Status: Orderedirbesartan 75 mg oral tablet 1 tablet = 75 mg, By Mouth, Daily, 0 Refills, Maintenance, 11/24/18 8:43:21 EDT Start Date: 11/24/18 Status: Orderedlorazepam 0.5 mg oral tablet 1 tablet = 0.5 mg, By Mouth, 3 times a day, PRN for anxiety, 0 Refills, Maintenance, Tablet Start Date: 07/16/12 Status: OrderedMulti Vitamin Multi Vitamin, Refills 0, Maintenance, 07/16/12 16:02:33 Start Date: 07/16/12 Status: OrderedOmeprazole = 20 mg, By Mouth, Daily, 0 Refills, Maintenance, 07/16/12 16:00:29 EST Start Date: 07/16/12 Status: OrderedtiZANidine 2 mg oral tablet See Instructions, PRN, 2 mg By Mouth 3 times a day as needed for muscle spasm. not to exceed 3 doses/day., # 30 tablet, Refills 0, Tot. Refills 0, Maintenance, Spasm, 12/31/17 8:16:20 EDT, InstructionsReplace Required Details, Print Requisition Start Date: 12/31/17 Status: Orderedtopiramate 100 mg oral tablet 1 tablet = 100 mg, By Mouth, 2 times a day, # 180 tablet, 0 Refills, Maintenance, 12/19/17 9:45:26 EDT, Tablet Start Date: 12/19/17 Status: Orderedvalsartan 80 mg oral tablet 80 mg, 1, tablet, By Mouth, Daily, # 30 tablet, Refills 0, Maintenance, 01/28/18 13:36:07 EDT Start Date: 01/28/18 Status: OrderedVitamin D3 2000 intl units oral capsule 1 capsule = 2,000 International_Units, By Mouth, Daily, 0 Refills, Maintenance Start Date: 07/16/12 Status: Ordered Problem List Condition Effective Dates Status Health Status Informant Morbid Obesity(Confirmed) Active Social History Social History Type Response Smoking Status Never smoker entered on: 04/06/14 Sex Care Team PersonnelName: Jennifer Ivey MD Address: [address] [place] [address] [facility] [address]
--- OUTSIDE RECORDS SUMMARY | 2022-04-11 13:56 | XMS_ITS | Continuity of Care Document ---
:1970 Author Organization [facility] Address [address] [place] [address]- Care Team Providers Name Role Phone Jennifer Ivey MD Primary Care Physician [phone] [facility] Date(s): 08/22/19 - 08/22/[address] [address]- [facility] Attending Physician: Jennifer Ivey MD Allergies, Adverse Reactions, Alerts Substance Reaction [...]
--- OUTSIDE RECORDS SUMMARY | 2022-04-11 13:56 | XMS_ITS | Continuity of Care Document ---
:1970 Author Organization [facility] Address 100 [facility], [address] [place] [address]- Care Team Providers Name Role Phone Clary Cat MD, Jennifer John Primary Care Physician Encounter 03/28/21 - 04/04/21 [facility] [address], [address] [place] [address]- Attending Physician: Zane Card MD Admitting Physician: [...]
--- OUTSIDE RECORDS SUMMARY | 2022-04-11 13:56 | XMS_ITS | Continuity of Care Document ---
:1970 Author Organization [facility] Address [address] [place] [address], [address] [address]- Care Team Providers Name Role Phone Jennifer Ivey MD Primary Care Physician Encounter 03/25/20 - 04/01/20 [facility] [address], [address] [place] [address]- [facility] Attending Physician: Jennifer Ivey MD Admitting Physician: Jennifer Ivey MD Referring Physician: Jennifer Ivey MD Allergies, Adverse Reactions, [...]
== END 2022-04-05 10:11 | disposition home or self-care (01) | DRG 403 ==
LOC: HO.SSSA 10:22 → HO.S3 13:49
PROVIDERS: Physician Assistant Surgical; Admitting Provider Surgery; PCP Internal Medicine Endocrinology, Diabetes & Metabolism; Visit Provider Surgery
PROC: 0DB64Z3 Excision of Stomach, Percutaneous Endoscopic Approach, Vertical (ICD-10-PCS; CPT 43845; principal; 2022-04-04 07:30)
DX: E66.01 Morbid (severe) obesity due to excess calories (principal); K76.0 Fatty (change of) liver, not elsewhere classified; F33.0 Major depressive disorder, recurrent, mild; R56.9 Unspecified convulsions; I48.0 Paroxysmal atrial fibrillation; I10 Essential (primary) hypertension; E78.5 Hyperlipidemia, unspecified; K21.9 Gastro-esophageal reflux disease without esophagitis; F41.9 Anxiety disorder, unspecified; J45.990 Exercise induced bronchospasm; E78.00 Pure hypercholesterolemia, unspecified; G47.33 Obstructive sleep apnea (adult) (pediatric); Z20.822 Contact with and (suspected) exposure to COVID-19; Z68.41 Body mass index [BMI] 40.0-44.9, adult; Z79.82 Long term (current) use of aspirin; Z79.899 Other long term (current) drug therapy
CPT/HCPCS: 36415; 80048; 85014; 85018; 85025; 86850; 86900; 86901; 87635; 88307; 88342; A4649; C9088; J0131; J0690; J1100; J1170; J1200; J2250; J2405; J2795; J3010

== ENCOUNTER → 2022-07-13 08:15 | Outpatient (BNVA) | payer BC, SELFPAY | PROVIDERS: PCP Internal Medicine Endocrinology, Diabetes & Metabolism; Visit Provider Physician Assistant Surgical | DX: E66.9 Obesity, unspecified (principal) ==

== ENCOUNTER → 2022-08-24 14:44 | Outpatient (BNVA) | payer BC, SELFPAY | PROVIDERS: PCP Internal Medicine Endocrinology, Diabetes & Metabolism; Visit Provider Physician Assistant Surgical | DX: Z13.89 Encounter for screening for other disorder (principal) ==

== ENCOUNTER 2022-10-02 08:17 | Outpatient (REF) | payer BC, SELFPAY ==
[2022-10-02 09:28] LABS: MANUAL DIFF FLAG NO
[2022-10-02 09:39] LABS: Basophils Absolute Auto 0.1 X10*3/uL (0.0-0.2); Basophils Percent Auto 0.5 % (0-2); Eosinophils Absolute Auto 0.1 X10*3/uL (0.0-0.4); Eosinophils Percent Auto 1.1 % (0-4); Hematocrit 43.7 % (37.0-47.0); Hemoglobin 13.8 g/dl (12.0-16.0); Imm Gran Abs Auto 0.01 X10*3/uL (0.00-0.03); Imm Gran Pct Auto 0.1 % (0.0-0.4); Lymphocytes Absolute Auto 2.4 X10*3/uL (1.2-4.9); Lymphocytes Percent Auto 25.5 % (20-40); Mean Corpuscular HGB Conc 31.6 g/dl (31.0-35.0); Mean Corpuscular Hemoglobin 27.3 pg (27.0-33.0); Mean Corpuscular Volume 86.4 fL (80.0-98.0); Mean Platelet Volume 10.1 fL (9.4-12.3); Monocytes Absolute Auto 0.8 X10*3/uL (0.1-1.2); Monocytes Percent Auto 8.7 % (2-11); Neutrophils Absolute Auto 6.1 x10*3/uL (2.0-8.3); Neutrophils Percent Auto 64.1 % (45-73); Platelet Count 312 X10*3/uL (160-400); Red Blood Count 5.06 X10*6/uL (4.20-5.50); Red Cell Distribution Width 15.5 % (11.0-16.0); White Blood Count 9.6 X10*3/uL (4.8-10.8)
[2022-10-02 09:50] LABS: Estimated Average Glucose 94 mg/dL; Hemoglobin A1c % 4.9 %
[2022-10-02 10:30] LABS: C Reactive Protein 0.14 mg/dL (< or = 0.50); Cholesterol 175 mg/dL; HDL Cholesterol 27 mg/dL; Iron 51 mcg/dL (30-160); LDL Cholesterol Calculated 130 mg/dl; Percent Iron Saturation 24 % (15-50); Total Iron Binding Capacity 211 mcg/dL (228-428); Triglycerides 94 mg/dL; Unsaturated Iron Binding 160 ug/dL
[2022-10-02 11:09] LABS: Ferritin 226 ng/mL (10-250); Folate 15.3 ng/mL (> or = 4.0); Insulin 7 uU/mL (2-29); TSH reflex Free T4 0.52 uIU/mL (0.32-4.0); Valproate < 12.5 mcg/mL (50.0-100.0); Vitamin B12 > 2000 pg/mL (200-900)
[2022-10-03 14:24] LABS: Calcium (PTHI) 9.7 mg/dL (8.6-10.4); PTHI 40 pg/mL (16-77)
[2022-10-06 00:48] LABS: Zinc 98 mcg/dL (60-130)
[2022-10-06 18:42] LABS: Vitamin A 28 mcg/dL (38-98)
[2022-10-07 15:04] LABS: Vitamin B1 19 nmol/L (8-30)
== END 2022-10-02 08:18 | disposition home or self-care (01) ==
LOC: HO.LAB 08:17
PROVIDERS: PCP Internal Medicine Endocrinology, Diabetes & Metabolism; Visit Provider Physician Assistant Surgical
DX: E66.9 Obesity, unspecified (principal); F33.0 Major depressive disorder, recurrent, mild; F41.0 Panic disorder [episodic paroxysmal anxiety]; Z71.3 Dietary counseling and surveillance; Z98.84 Bariatric surgery status; Z79.899 Other long term (current) drug therapy
CPT/HCPCS: 36415; 80061; 80164; 82306; 82607; 82728; 82746; 83036; 83525; 83540; 83970; 84425; 84443; 84590; 84630; 85025; 86140

== ENCOUNTER → 2022-11-13 13:28 | Outpatient (BNVA) | payer BC, SELFPAY | PROVIDERS: PCP Internal Medicine Endocrinology, Diabetes & Metabolism; Visit Provider Internal Medicine | DX: I48.0 Paroxysmal atrial fibrillation (principal) | CPT/HCPCS: 93005 ==

== ENCOUNTER 2022-12-17 03:04 | Inpatient (IN) | payer BC, SELFPAY ==
[2022-12-17] VITALS (7 sets, daily range): BP systolic 108–123; BP diastolic 51–77; PULSE 65–75; RESP 14–20; TEMP 36.1–36.8; O2SAT 95–100; BMI 28.3; BMI 28.4
--- NOTE | ~2022-12-17 | CT_ITS ---
EXAMINATION: CT ABDOMEN AND PELVIS WITHOUT CONTRAST CLINICAL INFORMATION: Left lower quadrant pain, rule out diverticulitis COMPARISON: None available. TECHNIQUE: Multidetector volumetric imaging was performed from the superior aspect of the liver through the pubic symphysis. Sagittal and coronal reformatted images were obtained on the technologist's workstation. This CT examination was performed using dose optimization techniques as appropriate, variously including the following: *Automated exposure control *Adjustment of mA and/or kV according to patient size (this includes techniques or standardized protocols for targeted exams where dose is matched to indication/reason for exam; i.e. extremities or head) *Use of iterative reconstruction technique DLP: 523 mGy-cm FINDINGS: LUNG BASES: Trace pleural effusions and minimal bibasilar atelectasis. LIVER, GALLBLADDER, AND BILIARY TREE: The liver is enlarged, measuring approximately 22.4 cm in length. No focal hepatic lesion or biliary ductal dilatation is identified on this noncontrast exam. Gallbladder is grossly unremarkable. PANCREAS: Unremarkable. SPLEEN: Unremarkable. ADRENAL GLANDS: Unremarkable. KIDNEYS AND URETERS: Mildly prominent bilateral renal pelvises, with no obstructing calculus seen. BLADDER: Unremarkable. GASTROINTESTINAL TRACT: Suture line is present along the stomach. No evidence of bowel obstruction. There is focal colonic wall thickening in the setting of diverticula in the distal descending colon, suspicious for diverticulitis. Prominent surrounding stranding is present. Tiny foci of free air in this region from microperforation cannot be excluded. No discrete abscess is seen on this noncontrast exam. Small amount of pelvic free fluid. ABDOMINAL WALL: No significant hernia is appreciated. LYMPH NODES: No lymphadenopathy is seen, though assessment is limited in the absence of intravenous contrast. VASCULAR: Scattered atherosclerotic calcifications. PELVIC VISCERA: Patient appears to be status post hysterectomy. OSSEOUS STRUCTURES: Degenerative changes are noted in the spine. CT/CT abdomen pelvis wo IV con IMPRESSION: 1. Diverticulitis of the distal descending colon. Tiny foci of free air in this region from microperforation cannot be excluded. No discrete abscess identified on this noncontrast exam. Correlation with recent or followup colonoscopy is advised to exclude an underlying mass lesion. 2. Small amount of pelvic free fluid. 3. Trace pleural effusions. 4. Hepatomegaly.
[2022-12-17 03:40] LABS: Basophils Percent Auto 0.2 % (0-2); Eosinophils Absolute Auto 0.1 X10*3/uL (0.0-0.4); Eosinophils Percent Auto 0.8 % (0-4); Hemoglobin 13.2 g/dl (12.0-16.0); Imm Gran Abs Auto 0.05 X10*3/uL (0.00-0.03); Imm Gran Pct Auto 0.3 % (0.0-0.4); Lymphocytes Percent Auto 18.6 % (20-40); MANUAL DIFF FLAG NO; Mean Corpuscular HGB Conc 32.2 g/dl (31.0-35.0); Mean Corpuscular Volume 86.9 fL (80.0-98.0); Mean Platelet Volume 9.3 fL (9.4-12.3); Monocytes Absolute Auto 0.9 X10*3/uL (0.1-1.2); Monocytes Percent Auto 5.7 % (2-11); Neutrophils Absolute Auto 12.1 x10*3/uL (2.0-8.3); Neutrophils Percent Auto 74.4 % (45-73); Platelet Count 314 X10*3/uL (160-400); Red Blood Count 4.72 X10*6/uL (4.20-5.50); Red Cell Distribution Width 14.6 % (11.0-16.0); White Blood Count 16.2 X10*3/uL (4.8-10.8)
[2022-12-17 03:44] LABS: Color Urine Yellow; Glucose Urine UA Negative (Negative); Leukocyte Esterase Urine Negative (Negative); Nitrite Urine Negative (Negative); PH 6.5 (5.0-9.0); Urine Blood Negative (Negative); Urine Ketones Negative (Negative); Urine Protein Negative (Neg-Trace)
[2022-12-17 03:48] LABS: Appearance Urine Clear
[2022-12-17 04:02] LABS: Anion Gap 11 (12-20); Blood Urea Nitrogen 15 mg/dL (9-16); Calcium 9.3 mg/dL (8.4-10.2); Carbon Dioxide 27 mmol/L (22-29); Chloride 105 mmol/L (96-108); Creatinine Clr Calc Pharmacy 94.8; Estimated Glomerular Filt Rate > 60; Glucose Random 93 mg/dL (60-115); Potassium 3.8 mmol/L (3.3-5.1); Sodium 139 mmol/L (135-145)
[2022-12-17 05:22] LABS: UPreg QC Valid YES; Urine Pregnancy NEGATIVE (NEGATIVE)
--- NOTE | 2022-12-17 05:22 | ED_ITS ---
HPI - Abdominal Pain General Chief Complaint: Abdominal Pain Stated Complaint: left lower abd pain Time Seen by Provider: 12/17/22 05:12 Source: patient and family Mode of arrival: ambulatory Limitations: no limitations History of Present Illness HPI narrative: 52-year-old female came in for evaluation of left lower quadrant abdominal pain for 1 day. Patient starts to have left lower quadrant abdominal pain after eating dinner yesterday, pain is constant and localized to the left lower quadrant area with no radiation, described as dull aching pain severe 8/10, associated with nausea and dry heaving with no vomiting, patient had a normal bowel movement yesterday, passing flatus. No dysuria, no frequency urination, no hematuria. Abdominal history of gastric sleeve bypass surgery 9 month ago, appendectomy, hysterectomy. Related Data Home Medications Medication Instructions Recorded Confirmed atorvastatin 80 mg tablet 80 mg PO BEDTIME 07/20/21 11/13/22 albuterol sulfate 90 mcg/actuation 0 mcg inhalation 01/09/22 11/13/22 aerosol inhaler wbfwjykbsd-fcqcouoqgcjpo-pekxfjsu tab PO 01/09/22 11/13/22 50 mg-325 mg-40 mg tablet divalproex 250 mg tablet,extended 250 mg PO BEDTIME 01/09/22 11/13/22 release 24 hr brexpiprazole 0.5 mg tablet 1 mg PO DAILY 01/30/22 11/13/22 (Rexulti) bupropion HCl 75 mg tablet 75 mg PO BID 10/02/22 11/13/22 Previous Rx's Medication Instructions Recorded propranolol 10 mg tablet 10 mg PO BID 90 days #180 tabs 12/11/22 levofloxacin 750 mg tablet 750 mg PO DAILY #20 tabs 12/17/22 metronidazole 500 mg tablet 250 mg PO Q12H 10 days #10 tabs 12/17/22 Allergies Allergy/AdvReac Type Severity Reaction Status Date / Time camphor AdvReac Intermediate Hives Verified 11/13/22 13:58 Review of Systems Review of Systems All other systems are reviewed and are negative Constitutional: Reports as per HPI and Reports no additional constitutional complaints Eyes: Reports as per HPI and Reports no additional eye complaints Reports system reviewed and no additional complaints, except as documented Cardiovascular: Reports as per HPI and Reports no additional cardiovascular complaints Respiratory: Reports as per HPI and Reports no additional respiratory complaints Gastrointestinal: Reports as per HPI and Reports no additional gastrointestinal complaints Genitourinary: Reports no additional female genitourinary complaints Musculoskeletal: Reports no additional musculoskeletal complaints Skin/Breast: Reports system reviewed and no additional complaints, except as docu Psychiatric: Reports no additional psychiatric complaints Endocrine: Reports no additional endocrine complaints Hematologic/Lymphatic: Reports no additional hematologic/lymphatic complaints Allergic/Immunologic: Reports no additional allergic/immunologic complaints Reports system reviewed and no additional complaints, except as documented and Reports Abnormal speech present [facility] Past Medical History Medical History Anxiety Asthma Dysphagia Elevated troponin High cholesterol History of atrial fibrillation HTN (hypertension) Migraines Nausea On beta jeanette at home ABHIJIT on CPAP Panic attack Seizure Steatosis, liver Surgical History H/O gastric sleeve History of appendectomy History of esophagogastroduodenoscopy (EGD) History of hysterectomy History of myomectomy Hx of colonoscopy Family History Family History Mother Atrial fibrillation Father Heart valve problem Son ADHD Daughter ADHD Sister Diabetes High cholesterol Factor 5 Leiden mutation, heterozygous Brother No problems noted. Social History Social History Are you a primary care transition mgr to a significant other at home: No Do you presently have visiting nurse or other home services: No Alcohol intake: current Patient Tobacco Use Status: Never used Tobacco Smoked in Last 30 Days: No Use of substances other than those prescribed or required for medical reasons: No Advance Directives: No Advance Directives Information Provided: No Patient : No service: No Current occupational status: employed Physical Exam ED Vital Signs: Vital Signs - 24 hr 12/17/22 03:23 12/17/22 05:03 12/17/22 05:23 Temperature 98.3 F 97.6 F 98.3 F Pulse Rate 75 67 68 Respiratory Rate 18 18 18 Blood Pressure 114/68 111/67 116/71 Pulse Oximetry 98 100 100 Oxygen Delivery Method Room Air Room Air Room Air BMI result Body Mass Index 28.3 Vital signs have been reviewed as appeared to be correct. Blood pressure normal. Heart rate normal. Respiration rate normal. Temperature normal. Oxygen saturation normal. Appearance: Alert. Oriented X3. No acute distress. Head: Normal external exam. Normocephalic. Atraumatic. No Douglas signs noted. No raccoon eyes noted Eyes: PERRLA. EOMI. Conjunctiva and sclera normal. Eyelids normal. ENT: TM's Normal. Pharynx normal. Uvula midline. Moist mucous membranes. No trismus noted. No drooling noted. No muffled voice noted. Neck: Normal inspection. Neck supple. FROM. No adenopathy. Thyroid Normal. No meningeal signs. No neck mass noted. CVS: Normal heart rate and rhythm. Heart sound normal. No murmurs noted. Pulses normal throughout. Respiratory: No respiratory distress. Painless inspiration. Breath sounds normal. No wheezes/rales/rhonchi noted. Chest nontender. No accessory muscle usage noted or decreased air movement noted. Abdomen: Soft, left lower quadrant tenderness with no rebound tenderness or guarding.. Bowel sounds normal in all 4 quadrants. No distention noted. No organomegaly noted. No visible injury noted. Back: No CVA tenderness. Full range of motion noted. Skin: Skin warm and dry. Normal skin color. Normal skin turgor. No rashes/lesions/lacerations noted. Extremities: No lower extremity edema. Extremities exhibit normal range of motion. Extremities nontender. Neuro: Oriented X 3. Cranial nerve exam: II-XII are grossly intact No motor deficit. No sensory deficit. Reflexes normal. Course Course Course Narrative: 52-year-old female with diverticulitis with a tiny foci Medical Decision Making Lab Data 12/17/22 03:34 12/17/22 03:34 Labs: Lab Results 12/17/22 12/17/22 12/17/22 Range/Units 03:34 03:34 03:34 WBC 16.2 H (4.8-10.8) X10*3/uL RBC 4.72 (4.20-5.50) X10*6/uL Hgb 13.2 (12.0-16.0) g/dl Hct 41.0 (37.0-47.0) % MCV 86.9 (80.0-98.0) fL MCH 28.0 (27.0-33.0) pg MCHC 32.2 (31.0-35.0) g/dl RDW 14.6 (11.0-16.0) % Plt Count 314 (160-400) X10*3/uL MPV 9.3 L (9.4-12.3) fL Immature Gran % (Auto) 0.3 (0.0-0.4) % Neut % (Auto) 74.4 H (45-73) % Lymph % (Auto) 18.6 L (20-40) % [place] % (Auto) 5.7 (2-11) % Eos % (Auto) 0.8 (0-4) % Baso % (Auto) 0.2 (0-2) % Lymph # (Auto) 3.0 (1.2-4.9) X10*3/uL [place] # (Auto) 0.9 (0.1-1.2) X10*3/uL Eos # (Auto) 0.1 (0.0-0.4) X10*3/uL Baso # (Auto) 0.0 (0.0-0.2) X10*3/uL Abs Immat Gran (auto) 0.05 H (0.00-0.03) X10*3/uL Absolute Neuts (auto) 12.1 H (2.0-8.3) x10*3/uL Absolute Nucleated RBC 0.000 (0.0-0.012) X10*3/uL Nucleated RBC % (auto) 0.0 (0.0-0.2) /100WBC Sodium 139 (135-145) mmol/L Potassium 3.8 (3.3-5.1) mmol/L Chloride 105 (96-108) mmol/L Carbon Dioxide 27 (22-29) mmol/L Anion Gap 11 L (12-20) BUN 15 (9-16) mg/dL Creatinine 0.68 (0.5-1.4) mg/dL Estim Creat Clear Calc 94.8 Estimated GFR > 60 Random Glucose 93 (60-115) mg/dL Calcium 9.3 (8.4-10.2) mg/dL Total Bilirubin 1.3 H (0.0-1.0) mg/dL Direct Bilirubin 0.3 (0.0-0.5) mg/dL AST 12 (5-31) U/L ALT 17 (0-31) U/L Alkaline Phosphatase 73 (39-117) U/L Total Protein 5.9 L (6.5-8.0) g/dL Albumin 3.6 (3.5-5.0) g/dL Lipase 20 (8-78) U/L Urine Color Yellow Urine Appearance Clear Urine pH 6.5 (5.0-9.0) Ur Specific [place] 1.010 (1.005-1.025) Urine Protein Negative (Neg-Trace) mg/dL Urine Glucose (UA) Negative (Negative) mg/dL Urine Ketones Negative (Negative) mg/dL Urine Blood Negative (Negative) Urine Nitrite Negative (Negative) Ur Leukocyte Esterase Negative (Negative) Urine Test (NEGATIVE) 12/17/22 Range/Units 03:34 WBC (4.8-10.8) X10*3/uL RBC (4.20-5.50) X10*6/uL Hgb (12.0-16.0) g/dl Hct (37.0-47.0) % MCV (80.0-98.0) fL MCH (27.0-33.0) pg MCHC (31.0-35.0) g/dl RDW (11.0-16.0) % Plt Count (160-400) X10*3/uL MPV (9.4-12.3) fL Immature Gran % (Auto) (0.0-0.4) % Neut % (Auto) (45-73) % Lymph % (Auto) (20-40) % [place] % (Auto) (2-11) % Eos % (Auto) (0-4) % Baso % (Auto) (0-2) % Lymph # (Auto) (1.2-4.9) X10*3/uL [place] # (Auto) (0.1-1.2) X10*3/uL Eos # (Auto) (0.0-0.4) X10*3/uL Baso # (Auto) (0.0-0.2) X10*3/uL Abs Immat Gran (auto) (0.00-0.03) X10*3/uL Absolute Neuts (auto) (2.0-8.3) x10*3/uL Absolute Nucleated RBC (0.0-0.012) X10*3/uL Nucleated RBC % (auto) (0.0-0.2) /100WBC Sodium (135-145) mmol/L Potassium (3.3-5.1) mmol/L Chloride (96-108) mmol/L Carbon Dioxide (22-29) mmol/L Anion Gap (12-20) BUN (9-16) mg/dL Creatinine (0.5-1.4) mg/dL Estim Creat Clear Calc Estimated GFR Random Glucose (60-115) mg/dL Calcium (8.4-10.2) mg/dL Total Bilirubin (0.0-1.0) mg/dL Direct Bilirubin (0.0-0.5) mg/dL AST (5-31) U/L ALT (0-31) U/L Alkaline Phosphatase (39-117) U/L Total Protein (6.5-8.0) g/dL Albumin (3.5-5.0) g/dL Lipase (8-78) U/L Urine Color Urine Appearance Urine pH (5.0-9.0) Ur Specific [place] (1.005-1.025) Urine Protein (Neg-Trace) mg/dL Urine Glucose (UA) (Negative) mg/dL Urine Ketones (Negative) mg/dL Urine Blood (Negative) Urine Nitrite (Negative) Ur Leukocyte Esterase (Negative) Urine Test NEGATIVE (NEGATIVE) Medications Administered Discontinued Medications Generic Name Dose Route Start Last Admin Trade Name Freq PRN Reason Stop Dose Admin Sodium Chloride 1,000 mls @ 999 mls/hr 12/17/22 05:27 12/17/22 06:03 Ns IV 12/17/22 06:27 999 mls/hr .Q1H1M ONE Administration Morphine Sulfate 2 mg 12/17/22 05:27 12/17/22 06:03 Morphine Sulfate 2 Mg/Ml Cartridge IVPUSH 12/17/22 05:28 2 mg ONCE ONE Administration Protocol Ondansetron HCl 4 mg 12/17/22 05:27 12/17/22 06:04 Ondansetron Hcl 4 Mg/2 Ml Vial IVPUSH 12/17/22 05:28 4 mg ONCE ONE Administration Discharge Plan Discharge Clinical Impression: Acute diverticulitis Patient Disposition: Home, Self-Care Instructions: Diverticulitis (ED) Additional Instructions: Return to the emergency department immediately if worsening of the abdominal pain, fever, chills, intractable vomiting. Prescriptions: New levofloxacin 750 mg tablet 750 mg PO DAILY Qty: 20 0RF metronidazole 500 mg tablet 250 mg PO Q12H 10 Days Qty: 10 0RF No Action propranolol 10 mg tablet 10 mg PO BID 90 Days Qty: 180 3RF atorvastatin 80 mg tablet 80 mg PO BEDTIME divalproex 250 mg tablet extended release 24 hr 250 mg PO BEDTIME albuterol sulfate 90 mcg/actuation HFA aerosol inhaler 0 mcg inhalation rzhsebxuwc-dbiifhwhrasnp-adse 50-325-40 mg tablet PO Hold Instructions: until discussed with Dr Demetrius Stevenson 0.5 mg tablet 1 mg PO DAILY bupropion HCl 75 mg tablet 75 mg PO BID Referrals: Jennifer Toussaint MD [Primary Care Provider] -
[2022-12-17 05:28] LABS: Alanine Aminotransferase 17 U/L (0-31); Albumin Level 3.6 g/dL (3.5-5.0); Alkaline Phosphatase 73 U/L (39-117); Aspartate Amino Transferase 12 U/L (5-31); Bilirubin Direct 0.3 mg/dL (0.0-0.5); Bilirubin Total 1.3 mg/dL (0.0-1.0); Lipase 20 U/L (8-78); Total Protein 5.9 g/dL (6.5-8.0)
[2022-12-17] MEDS: Morphine Sulfate 2 MG/ML CARTRIDGE IVPUSH (06:03)
[2022-12-17] MEDS: 0.9 % Sodium Chloride 1,000 ML 999 ML IV (06:03)
[2022-12-17] MEDS: ondansetron HCL 4 MG/2 ML VIAL IVPUSH (06:04)
[2022-12-17] MEDS: Piperacillin Sodium/Tazobactam 3.375 GM in 0.9 % Sodium Chloride 50 ML IV ×3 (07:30→19:36)
[2022-12-17 07:50] LABS: Lactic Acid 0.8 mmol/L (0.5-2.0)
[2022-12-17] MEDS: levoFLOXacin/D5W 750 MG/150 ML PIGGYBACK 100 MG IV (08:23)
[2022-12-17] MEDS: Enoxaparin Sodium 40 MG/0.4 ML SYRINGE SUBCUT (10:05)
--- NOTE | 2022-12-17 10:25 | PHA.MEDREC ---
Pharmacy Consult ? Medication Reconciliation Pharmacy has completed the medication reconciliation.
--- NOTE | 2022-12-17 10:28 | PM.IMHP ---
History of Present Illness Date of Service: 12/17/22 Attending physician on admission: Breanna Crowell Chief Complaint: Abdominal pain 52-year-old female a past medical history anxiety ,asthma , dysphagia, history of atrial fibrillation, ABHIJIT on CPAP, panic attack, hypercholesteremia, hypertension, steatosis ,seizure -patient came to the hospital because she is having abdominal pain left lower quadrant 1-2 days duration. She has?left lower quadrant abdominal pain after eating dinner yesterday, pain is constant and localized to the left lower quadrant area with no radiation, described as dull aching pain severe 8/10, nonradiating, intermittent and sharp,Also has nausea and dry heaving with no vomiting, patient had a normal bowel movement yesterday, passing flatus.? Currently patient is saying he she is unable to tolerate diet due to Seen in pain and nausea. Denies any new complaint of chest pain or shortness of breath or fever or chills or any cough Denies any weakness or numbness. denies any recent travel or antibiotics use. Lab imaging reviewed: WBC count 16.2 BMP seems fine, lipase is normal. CT abdomen: Diverticulitis of distal descending colon/? Question of microperforation. In ED: Patient received IV antibiotic Zosyn, morphine, Zofran-admission was called for acute diverticulitis/?microperforation. Review of Systems Review of Systems: As above. [facility] Medical History Anxiety Asthma Dysphagia Elevated troponin High cholesterol History of atrial fibrillation HTN (hypertension) Migraines Nausea On beta jeanette at home ABHIJIT on CPAP Panic attack Seizure Steatosis, liver Family History Mother Atrial fibrillation Father Heart valve problem Son ADHD Daughter ADHD Sister Diabetes High cholesterol Factor 5 Leiden mutation, heterozygous Brother No problems noted. Surgical History H/O gastric sleeve History of appendectomy History of esophagogastroduodenoscopy (EGD) History of hysterectomy History of myomectomy Hx of colonoscopy Social History Are you a primary home care scheduler to a significant other at home: No Do you presently have visiting nurse or other home services: No Alcohol intake: current Patient Tobacco Use Status: Never used Tobacco Smoked in Last 30 Days: No Use of substances other than those prescribed or required for medical reasons: No Advance Directives: No Advance Directives Information Provided: No Patient : No service: No Current occupational status: employed Meds Allergies Allergy/AdvReac Type Severity Reaction Status Date / Time camphor AdvReac Intermediate Hives Verified 11/13/22 13:58 Active Medications: Current Medications Enoxaparin Sodium (Enoxaparin Sodium 40 Mg/0.4 Ml Syringe) 40 mg SUBCUT Q24H [facility] Last Admin: 12/17/22 10:05 Dose: 40 mg Lactated Ringer's (Lr) 1,000 mls @ 80 mls/hr IVCONT .[id number] [facility] Piperacillin Sod/Tazobactam (Sod 3.375 gm/ Sodium Chloride) 50 mls @ 100 mls/hr IV Q6H [facility] Pharmacy Consult (Consult Rx Perform Med Rec) 1 each MISCELLANE ONCE PRN PRN Reason: Consult order Sodium Chloride (0.9 % Sodium Chloride Flush 3 Ml Syringe) 3 ml IVFLUSH QSHIFT [facility] Home Medications Medication Instructions Recorded Confirmed Last Taken Type atorvastatin 80 mg tablet 80 mg PO BEDTIME 07/20/21 12/17/22 12/16/22 History albuterol sulfate 90 mcg/actuation 90 mcg inhalation Q4H PRN 01/09/22 12/17/22 12/16/22 History aerosol inhaler Shortness Of Breath elqlrpmcqe-qdhmxroaqtrkc-tfgkqkhb 1 tab PO DAILY PRN Migraine 01/09/22 12/17/22 Unknown History 50 mg-325 mg-40 mg tablet Headache divalproex 250 mg tablet,extended 250 mg PO BEDTIME 01/09/22 12/17/22 12/16/22 History release 24 hr bupropion HCl 75 mg tablet 75 mg PO BID 10/02/22 12/17/22 12/16/22 History brexpiprazole 1 mg tablet (Rexulti) 1 mg PO DAILY 12/17/22 12/17/22 12/16/22 History multivitamin 1 tab PO DAILY 12/17/22 12/17/22 12/16/22 History Physical Exam Vital Signs and Narrative: Vital Signs: Last Vital Signs Temp 98.3 F 12/17/22 05:23 Pulse 70 12/17/22 07:11 Resp 16 12/17/22 07:11 BP 123/77 12/17/22 07:11 Pulse Ox 99 12/17/22 07:11 O2 Del Method Room Air 12/17/22 07:11 BMI result Body Mass Index 28.3 Appearance: Alert.? Oriented X3.? has abd pain.? Eyes: Pupils equal, round and reactive to light.? Sclera nonicteric.? ENT: Pharynx normal.? Moist mucous membranes. cvs: rrr, [id number] , no murmur res: clear to auscultation ,no rhonchii or wheezing abd: no rebound or guarding ,left lower quadrent pain , bs present. ext pulses present , no cyanosis. neuro: axo3 , nonfocal. Results Labs 12/17/22 03:34 12/17/22 03:34 Labs: Laboratory Results - last 24 hr 12/17/22 12/17/22 12/17/22 03:34 03:34 03:34 MCV 86.9 MCH 28.0 MCHC 32.2 RDW 14.6 Plt Count 314 MPV 9.3 L Immature Gran % (Auto) 0.3 Neut % (Auto) 74.4 H Lymph % (Auto) 18.6 L [place] % (Auto) 5.7 Eos % (Auto) 0.8 Baso % (Auto) 0.2 Lymph # (Auto) 3.0 [place] # (Auto) 0.9 Eos # (Auto) 0.1 Baso # (Auto) 0.0 Abs Immat Gran (auto) 0.05 H Absolute Neuts (auto) 12.1 H Absolute Nucleated RBC 0.000 Nucleated RBC % (auto) 0.0 Anion Gap 11 L Estim Creat Clear Calc 94.8 Estimated GFR > 60 Random Glucose 93 Lactic Acid Calcium 9.3 Total Bilirubin 1.3 H Direct Bilirubin 0.3 AST 12 ALT 17 Alkaline Phosphatase 73 Total Protein 5.9 L Albumin 3.6 Lipase 20 Urine Color Yellow Urine Appearance Clear Urine pH 6.5 Ur Specific [place] 1.010 Urine Protein Negative Urine Glucose (UA) Negative Urine Ketones Negative Urine Blood Negative Urine Nitrite Negative Ur Leukocyte Esterase Negative Urine Test 12/17/22 12/17/22 03:34 07:25 MCV MCH MCHC RDW Plt Count MPV Immature Gran % (Auto) Neut % (Auto) Lymph % (Auto) [place] % (Auto) Eos % (Auto) Baso % (Auto) Lymph # (Auto) [place] # (Auto) Eos # (Auto) Baso # (Auto) Abs Immat Gran (auto) Absolute Neuts (auto) Absolute Nucleated RBC Nucleated RBC % (auto) Anion Gap Estim Creat Clear Calc Estimated GFR Random Glucose Lactic Acid 0.8 Calcium Total Bilirubin Direct Bilirubin AST ALT Alkaline Phosphatase Total Protein Albumin Lipase Urine Color Urine Appearance Urine pH Ur Specific [place] Urine Protein Urine Glucose (UA) Urine Ketones Urine Blood Urine Nitrite Ur Leukocyte Esterase Urine Test NEGATIVE Imaging Radiologist's Impressions: Impressions Abdomen/Pelvis CT 12/17/22 05:43 IMPRESSION: 1. Diverticulitis of the distal descending colon. Tiny foci of free air in this region from microperforation cannot be excluded. No discrete abscess identified on this noncontrast exam. Correlation with recent or followup colonoscopy is advised to exclude an underlying mass lesion. 2. Small amount of pelvic free fluid. 3. Trace pleural effusions. 4. Hepatomegaly. Assessment and Plan (1) Acute diverticulitis: Status: Acute Plan 52-year-old female with abdominal pain-found to have diverticulitis 1. Acute diverticulitis CT abdomen done-of acute descending distal colon diverticulitis with question of microperforation Leukocytosis, no fever, blood cultures sent No sepsis Patient still feels significantly in pain, feel nauseated unable to tolerate diet. Will start patient on IV Zosyn (date 12/17/22), surgery evaluation considering question of microperforation 2.hlp: Continue statin 3. Hypertension: Continue home medication propanolol. 4. hx of anxiety: continue home meds dvt prophylax: s/c lovenox. Patient has significant abdominal pain with acute diverticulitis and question of microperforation need IV antibiotic, bowel rest, IV fluids, surgical evaluation-may benefit from 2 days hospital stay. Time Spent With Patient Time: Total time managing care of this patient today ____ minutes. Quality Stroke Does the patient have a stroke diagnosis?: No VTE Prior VTE?: No VTE Risk Level:: Medical - moderate - high VTE Device Contraindication: N/A - Device Ordered VTE Drug Contraindication: N/A - Med Ordered
[2022-12-17] MEDS: Lactated Ringers 1,000 ML 80 ML IVCONT (11:49)
--- NOTE | 2022-12-17 11:51 | PM.CNGS ---
History of Present Illness Consult details Consult date: 12/17/22 Requesting physician: Oral Monahan Narrative: 52-year-old female patient presenting with complaints of abdominal pain in left lower quadrant since yesterday afternoon. She reports a previous episode of left lower quadrant abdominal pain approximately 1 month ago which resolved spontaneously. She denies fever or chills. The pain is currently 4 to 5/10 after receiving pain medication. She denies nausea, vomiting. Her past history is significant for hypertension, hypercholesterol, s/p sleeve gastrectomy, appendectomy, hysterectomy. Workup in the emergency department revealed elevated WBC of [address] abdomen and pelvis revealed evidence of diverticulitis but no definite abscess or free air. Surgical consultation is requested for management of the sigmoid diverticulitis. She has been admitted to the hospitalist service for IV antibiotics. Review of Systems Review of Systems: Yes all other systems are reviewed and are negative Constitutional: Constitutional: Denies chills, Denies fever(s), Denies headache(s), Denies poor appetite and Denies weakness ENT: Denies headache(s) Cardiovascular: Cardiovascular: Denies chest pain, Denies irregular heart rhythm, Denies palpitations and Denies dyspnea Respiratory: Respiratory: Denies cough, Denies excessive phlegm production and Denies dyspnea Gastrointestinal: Gastrointestinal: Reports abdominal pain, Denies bloating, Reports change in bowel habits, Denies constipation, Denies heartburn, Denies diarrhea, Denies nausea and Denies vomiting Genitourinary: Genitourinary: Denies urinary frequency Musculoskeletal: Musculoskeletal: Denies back pain, Denies muscle weakness and Denies numbness Integumentary/Breasts: Skin/Breast: Denies changing lesions and Denies unusual bruising Neurologic: Denies headache(s), Denies numbness, Denies paresthesias and Denies weakness Psychiatric: Psychiatric: Denies anxiety and Denies depression Endocrine: Endocrine: Denies palpitations Hematologic/Lymphatic: Hematologic/Lymphatic: Denies lymphadenopathy PMFSH Past Medical History Medical History Anxiety Asthma Dysphagia Elevated troponin High cholesterol History of atrial fibrillation HTN (hypertension) Migraines Nausea On beta jeanette at home ABHIJIT on CPAP Panic attack Seizure Steatosis, liver Family History Family History Mother Atrial fibrillation Father Heart valve problem Son ADHD Daughter ADHD Sister Diabetes High cholesterol Factor 5 Leiden mutation, heterozygous Brother No problems noted. Surgical History Surgical History H/O gastric sleeve History of appendectomy History of esophagogastroduodenoscopy (EGD) History of hysterectomy History of myomectomy Hx of colonoscopy Social History Social History Are you a primary professional healthcare representative to a significant other at home: No Do you presently have visiting nurse or other home services: No Alcohol intake: current Patient Tobacco Use Status: Never used Tobacco Smoked in Last 30 Days: No Use of substances other than those prescribed or required for medical reasons: No Advance Directives: No Advance Directives Information Provided: No Patient : No service: No Current occupational status: employed Meds Allergies Allergy/AdvReac Type Severity Reaction Status Date / Time camphor AdvReac Intermediate Hives Verified 11/13/22 13:58 Active Medications: Current Medications Enoxaparin Sodium (Enoxaparin Sodium 40 Mg/0.4 Ml Syringe) 40 mg SUBCUT Q24H [facility] Last Admin: 12/17/22 10:05 Dose: 40 mg Lactated Ringer's (Lr) 1,000 mls @ 80 mls/hr IVCONT .[id number] [facility] Last Admin: 12/17/22 11:49 Dose: 80 mls/hr Piperacillin Sod/Tazobactam (Sod 3.375 gm/ Sodium Chloride) 50 mls @ 100 mls/hr IV Q6H [facility] Pharmacy Consult (Consult Rx Perform Med Rec) 1 each MISCELLANE ONCE PRN PRN Reason: Consult order Sodium Chloride (0.9 % Sodium Chloride Flush 3 Ml Syringe) 3 ml IVFLUSH QSHIFT [facility] Home Medications Medication Instructions Recorded Confirmed Last Taken Type atorvastatin 80 mg tablet 80 mg PO BEDTIME 07/20/21 12/17/22 12/16/22 History albuterol sulfate 90 mcg/actuation 90 mcg inhalation Q4H PRN 01/09/22 12/17/22 12/16/22 History aerosol inhaler Shortness Of Breath [id number] 1 tab PO DAILY PRN Migraine 01/09/22 12/17/22 Unknown History 50 mg-325 mg-40 mg tablet Headache divalproex 250 mg tablet,extended 250 mg PO BEDTIME 01/09/22 12/17/22 12/16/22 History release 24 hr bupropion HCl 75 mg tablet 75 mg PO BID 10/02/22 12/17/22 12/16/22 History brexpiprazole 1 mg tablet (Rexulti) 1 mg PO DAILY 12/17/22 12/17/22 12/16/22 History multivitamin 1 tab PO DAILY 12/17/22 12/17/22 12/16/22 History Physical Exam Vital Signs: Vital Signs: Last Vital Signs Temp 98.3 F 12/17/22 05:23 Pulse 70 12/17/22 07:11 Resp 16 12/17/22 07:11 BP 123/77 12/17/22 07:11 Pulse Ox 99 12/17/22 07:11 O2 Del Method Room Air 12/17/22 07:11 BMI result Body Mass Index 28.3 Const: General: cooperative and no acute distress Nutritional Appearance: well nourished Orientation/consciousness: patient oriented x3 Limitations: no limitations HEENT: Head: Yes normocephalic and Yes atraumatic Ears: hearing grossly normal bilaterally Resp: Effort & Inspection: normal respiratory effort, no audible wheezes, no cough and no respiratory distress Cardio: Jugular venous distension: no JVD GI: Inspection: Yes normal to inspection Palpation (GI): Soft to palpation, Tenderness to palpation present (GI) in the LUQ and with rebound tenderness, no guarding, not rigid and no masses Auscultation: normal bowel sounds Rectal Exam - Female: deferred Skin: Other: Warm, dry, no rash Neuro: General: patient oriented x3 Extrem: General: Yes no clubbing, cyanosis or edema Results Labs 12/17/22 03:34 12/17/22 03:34 Labs: Abnormal lab results 12/17/22 12/17/22 Range/Units 03:34 03:34 WBC 16.2 H (4.8-10.8) X10*3/uL MPV 9.3 L (9.4-12.3) fL Neut % (Auto) 74.4 H (45-73) % Lymph % (Auto) 18.6 L (20-40) % Abs Immat Gran (auto) 0.05 H (0.00-0.03) X10*3/uL Absolute Neuts (auto) 12.1 H (2.0-8.3) x10*3/uL Anion Gap 11 L (12-20) Total Bilirubin 1.3 H (0.0-1.0) mg/dL Total Protein 5.9 L (6.5-8.0) g/dL Short CBC 12/17/22 Range/Units 03:34 WBC 16.2 H (4.8-10.8) X10*3/uL Hgb 13.2 (12.0-16.0) g/dl Hct 41.0 (37.0-47.0) % Plt Count 314 (160-400) X10*3/uL BMP 12/17/22 03:34 Sodium 139 Potassium 3.8 Chloride 105 Carbon Dioxide 27 BUN 15 Creatinine 0.68 Calcium 9.3 Liver Function 12/17/22 Range/Units 03:34 Total Bilirubin 1.3 H (0.0-1.0) mg/dL Direct Bilirubin 0.3 (0.0-0.5) mg/dL AST 12 (5-31) U/L ALT 17 (0-31) U/L Alkaline Phosphatase 73 (39-117) U/L Albumin 3.6 (3.5-5.0) g/dL Urine 12/17/22 12/17/22 Range/Units 03:34 03:34 Urine Color Yellow Urine Appearance Clear Urine pH 6.5 (5.0-9.0) Ur Specific [place] 1.010 (1.005-1.025) Urine Protein Negative (Neg-Trace) mg/dL Urine Glucose (UA) Negative (Negative) mg/dL Urine Test NEGATIVE (NEGATIVE) All other labs normal. Imaging Abdomen CT scan report/results: image reviewed CT scan - pelvis: image reviewed Assessment and Plan (1) Acute diverticulitis: Status: Acute Plan 52 year old female patient presenting with complaints of abdominal pain in the left lower quadrant. Workup is consistent with sigmoid diverticulitis without complication. Agree with IV antibiotics and non operative management. Will follow-up as an outpatient upon discharge as well to assure resolution of symptoms. Time Spent With Patient Time: Total time managing care of this patient today ____ minutes. Procedures Date of Service Date of Service: 12/17/22
--- NOTE | 2022-12-17 14:51 | PC.NURSE ---
nurse to nurse report to [facility] Cleo ANGUIANO
--- NOTE | 2022-12-17 16:38 | PC.NURSE ---
nurse to nurse report to Francesca RN in overflow
--- NOTE | 2022-12-17 18:42 | PM.EVENT ---
Event Note Date of Service: 12/17/22 Event Note: GI Consult-Full note dictated Imp: Diverticulitis without signs of complication at this time. Rec: IV antibiotics, clear liquids, and F/U labs in AM. Once her pain and tenderness improve, her diet can be advanced and the antibiotics can be switched to po. I did advise her to follow up with her GI MD in [place] to discuss another colonoscopy in 2-3 months since it has been about three or four years since her last exam and she has now developed this problem with presumed diverticulitis with the CT scan abnormalities. We did review that she should stay on a healthy and high fiber diet with a lot of water, along with fiber supplements and stool softeners as needed, so as to avoid constipation and straining with BM's. D/W patient in detail. Patient is comfortable with this plan. Thanks Time Spent With Patient Time: Total time managing care of this patient today ____ minutes.
[2022-12-17] MEDS: Propranolol HCL 10 MG TABLET PO (20:02)
[2022-12-17] MEDS: buPROPion HCL 75 MG TABLET PO (20:02)
[2022-12-17] MEDS: Divalproex Sodium ER 250 MG TAB.ER.24H PO (20:02)
[2022-12-17] MEDS: Brexpiprazole 1 MG TABLET PO (21:33)
[2022-12-17] MEDS: Atorvastatin Calcium 80 MG TABLET PO (21:33)
[2022-12-18] MEDS: Lactated Ringers 1,000 ML 80 ML IVCONT ×2 (00:43→22:01)
[2022-12-18] MEDS: Piperacillin Sodium/Tazobactam 3.375 GM in 0.9 % Sodium Chloride 50 ML IV ×4 (02:02→19:13)
--- NOTE | 2022-12-18 03:30 | CONS_ITS ---
DATE OF SERVICE: REASON FOR CONSULTATION: Abdominal pain and diverticulitis. HISTORY OF PRESENT ILLNESS: This has been obtained from the patient and the medical record. The patient is 52-year-old female, who was in her usual state of health up until yesterday when she developed the fairly sudden onset of left lower quadrant pain. This became quite severe prompting her ER visit. She describes some similar type symptoms about a month ago, although the pain was not as severe and went away within a day or so. She did have some dry heaves yesterday, but no vomiting. She denies any diarrhea, hematochezia, nor melena. She denied any urinary symptoms such as hematuria nor dysuria. She denies any signs of jaundice. In the ER, her workup revealed diverticulitis and she was admitted for further evaluation and treatment. She does describe having had at least 3 or 4 previous colonoscopies in [place] with Dr. Platt in the past, although the most recent one about 3 years ago was done by different physician at [facility]. She describes that she has had colonoscopies about every 5 years due to a family history of colon polyps in her mother. Since admission to the hospital, she does report that the pain is somewhat less, although does worsen if she tries to move around. She has been afebrile. MEDICATIONS: At home include albuterol inhaler, atorvastatin, Rexulti, bupropion, divalproex, vitamins, and propranolol. Her medications here in the hospital include albuterol, Rexulti, Wellbutrin, divalproex, Lovenox, morphine p.r.n., multivitamins, Zofran p.r.n., IV Zosyn, and propranolol. PAST MEDICAL HISTORY: Gastric sleeve surgery last March with Dr. Romo. She describes having lost over 100 pounds. She has had a hysterectomy, appendectomy, hyperlipidemia, history of atrial fibrillation. She denies a history of MD, stroke, nor diabetes. She has a history of sleep apnea, hyperlipidemia, seizure disorder. SOCIAL HISTORY: She is single. 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 She denies tobacco nor alcohol. FAMILY HISTORY: Mother had colon polyps. REVIEW OF SYSTEMS: CONSTITUTIONAL: Up until yesterday she was feeling well with good energy and good appetite. SKIN: No rash. No pruritus. HEENT: Negative. CARDIAC: No chest pain. PULMONARY: No cough or hemoptysis. GI: As above. GENITOURINARY: No dysuria or hematuria. NEUROLOGIC: She has a history of seizures. PSYCHIATRIC: Negative. PHYSICAL EXAMINATION: GENERAL: Again, the patient is pleasant, alert, comfortable-appearing female. SKIN: Warm and dry. HEENT: Anicteric sclerae. Moist mucous membranes. NECK: Supple. CHEST: Clear. CARDIAC: Normal S1, S2. ABDOMEN: Soft, nondistended. Bowel sounds are somewhat diminished, but present. There is diffuse tenderness, but particularly in the left lower quadrant. She does have some guarding in the left lower quadrant without palpable mass or rebound. EXTREMITIES: Without edema. NEUROLOGIC: She is alert and oriented. LABORATORY DATA: CT scan of the abdomen and pelvis on admission describes some focal colonic wall thickening in the area of diverticulosis in the distal descending colon suspicious for diverticulitis. There was also some stranding around that area as well and the report describes a tiny foci of free air in the region and a microperforation could not be definitively excluded. There was no abscess. There was some hepatomegaly. White blood cell count 16.2, hemoglobin 13.2, platelets 314,000. Normal electrolytes. BUN 15, creatinine 0.7. Normal LFTs. The total bilirubin 1.3 and direct bilirubin of 0.3. Albumin 3.6. Lipase 20. IMPRESSION: Given the patient's clinical history and workup this certainly seems consistent with an episode of uncomplicated diverticulitis. At this point, I would concur with the current plan of IV antibiotics and bowel rest. Once her pain improves and she is feeling better, her diet can be advanced and she could be switched to oral antibiotics. At this point, I would not recommend any type of endoscopic intervention. She has already been seen by Dr. Monahan from Surgery. I did review the diagnosis of diverticulitis with her in detail and advised her of the need to stay on a high-fiber diet with stool softeners as needed to maintain good bowel regularity and avoid constipation and straining. I also reviewed with her that she should meet with her actuarial science teacher who performed her colonoscopy about 3 years ago to see whether he would want to repeat a colonoscopy given this episode of diverticulitis and some abnormality seen in the colon on the CT scan. I advised her that I do not think this represents any other process, but nonetheless I would recommend a colonoscopy about 2 to [address] to definitively exclude any other pathology, even though I feel that is unlikely. This has all been discussed in detail with the patient and she is comfortable with that plan. Thank you for the consultation. MD MIGUELITO Mejia/DEBBIE / [id number] [employer]TD[employer]ory
[2022-12-18 03:37] VITALS: BP 104/63; PULSE 66; RESP 16; TEMP 36.1; O2SAT 98
[2022-12-18 05:55] LABS: Hematocrit 37.8 % (37.0-47.0); Hemoglobin 12.1 g/dl (12.0-16.0); Mean Corpuscular Hemoglobin 28.5 pg (27.0-33.0); Mean Corpuscular Volume 89.2 fL (80.0-98.0); Mean Platelet Volume 9.5 fL (9.4-12.3); Platelet Count 273 X10*3/uL (160-400); Red Blood Count 4.24 X10*6/uL (4.20-5.50); Red Cell Distribution Width 14.8 % (11.0-16.0); White Blood Count 11.2 X10*3/uL (4.8-10.8)
[2022-12-18 06:16] LABS: Alanine Aminotransferase 13 U/L (0-31); Albumin Level 3.2 g/dL (3.5-5.0); Alkaline Phosphatase 64 U/L (39-117); Anion Gap 10 (12-20); Aspartate Amino Transferase 10 U/L (5-31); Bilirubin Total 1.2 mg/dL (0.0-1.0); Blood Urea Nitrogen 6 mg/dL (9-16); Carbon Dioxide 28 mmol/L (22-29); Chloride 108 mmol/L (96-108); Creatinine Clr Calc Pharmacy 93.5; Estimated Glomerular Filt Rate > 60; Glucose Random 86 mg/dL (60-115); Potassium 4.1 mmol/L (3.3-5.1); Sodium 142 mmol/L (135-145); Total Protein 5.3 g/dL (6.5-8.0)
[2022-12-18 07:54] VITALS: BP 120/56; PULSE 64; RESP 16; TEMP 36.3; O2SAT 97
--- NOTE | 2022-12-18 08:09 | PM.PNGS ---
Subjective Subjective Date of Service: 12/18/22 Interval history: Feels overall a little better. Still having crampy pains, was made worse last night with liquids. No BM. Physical Exam Vital Signs: Vital Signs: Last Vital Signs Temp 97.4 F 12/18/22 07:54 Pulse 64 12/18/22 07:54 Resp 16 12/18/22 07:54 BP 120/56 L 12/18/22 07:54 Pulse Ox 97 12/18/22 07:54 O2 Del Method Room Air 12/18/22 07:54 BMI result Body Mass Index 28.4 Const: General: comfortable, no acute distress and alert Orientation/consciousness: patient oriented x3 Resp: Effort & Inspection: normal respiratory effort Cardio: Rate: regular rate GI: Inspection: No distended Palpation (GI): Soft to palpation, Tenderness to palpation present (GI) (LLQ/suprapubic tenderness, mild), no guarding and not rigid Percussion: Yes normal to percussion Skin: General skin exam: no rashes or lesions noted Neuro: General: patient oriented x3 and moves all extremities Objective Data Active Medications Acetaminophen/Butalbital/Caffeine (Butalb/Acetamin/Caff 50/325/40 Tablet) 1 tab PO DAILY PRN PRN Reason: Migraine Headache Albuterol Sulfate (Albuterol Sulfate 90 Mcg 8 Gm Inhaler) 2 puff INHALE Q4H PRN PRN Reason: Shortness Of Breath Atorvastatin Calcium (Atorvastatin Calcium 80 Mg Tablet) 80 mg PO BEDTIME [facility] Last Admin: 12/17/22 21:33 Dose: 80 mg Documented By: MARICHUY Brexpiprazole (Brexpiprazole 1 Mg Tablet) 1 mg PO BEDTIME [facility] Last Admin: 12/17/22 21:33 Dose: 1 mg Documented By: MARICHUY Bupropion HCl (Bupropion Hcl 75 Mg Tablet) 75 mg PO BID [facility] Last Admin: 12/17/22 20:02 Dose: 75 mg Documented By: MARICHUY Divalproex Sodium (Divalproex Sodium Er 250 Mg Tab.Er.24h) 250 mg PO BEDTIME [facility] Last Admin: 12/17/22 20:02 Dose: 250 mg Documented By: MARICHUY Enoxaparin Sodium (Enoxaparin Sodium 40 Mg/0.4 Ml Syringe) 40 mg SUBCUT Q24H [facility] Last Admin: 12/17/22 10:05 Dose: 40 mg Documented By: JAMAR Lactated Ringer's (Lr) 1,000 mls @ 80 mls/hr IVCONT .[id number] [facility] Last Infusion: 12/18/22 02:35 Dose: 80 mls/hr Documented By: MADHU Piperacillin Sod/Tazobactam (Sod 3.375 gm/ Sodium Chloride) 50 mls @ 100 mls/hr IV Q6H [facility] Last Infusion: 12/18/22 02:35 Dose: 0 mls/hr Documented By: MADHU Morphine Sulfate (Morphine Sulfate 2 Mg/Ml Cartridge) 2 mg IVPUSH Q4H PRN; Protocol PRN Reason: Pain, Severe (Pain Scale 7-10) Multivitamins/Vitamin C (Multivitamin Tablet) 1 tab PO DAILY [facility] Last Admin: 12/17/22 15:11 Dose: Not Given Documented By: PEDRO Non-Admin Reason: Patient Refused Ondansetron HCl (Ondansetron Hcl 4 Mg/2 Ml Vial) 4 mg IVPUSH Q4H PRN PRN Reason: Nausea Pharmacy Consult (Consult Rx Perform Med Rec) 1 each MISCELLANE ONCE PRN PRN Reason: Consult order Propranolol HCl (Propranolol Hcl 10 Mg Tablet) 10 mg PO BID [facility]; Protocol Last Admin: 12/17/22 20:02 Dose: 10 mg Documented By: MARICHUY Sodium Chloride (0.9 % Sodium Chloride Flush 3 Ml Syringe) 3 ml IVFLUSH QSHIFT [facility] Last Admin: 12/17/22 23:54 Dose: Not Given Documented By: MADHU Non-Admin Reason: IV Running Labs 12/18/22 05:46 12/18/22 05:46 Labs: Laboratory Results - last 24 hr 12/18/22 12/18/22 05:46 05:46 MCV 89.2 MCH 28.5 MCHC 32.0 RDW 14.8 Plt Count 273 MPV 9.5 Absolute Nucleated RBC 0.000 Nucleated RBC % (auto) 0.0 Anion Gap 10 L Estim Creat Clear Calc 93.5 Estimated GFR > 60 Random Glucose 86 Calcium 9.0 Total Bilirubin 1.2 H AST 10 ALT 13 Alkaline Phosphatase 64 Total Protein 5.3 L Albumin 3.2 L Procedures Date of Service Date of Service: 12/18/22 Progress Note: A&P Assessment and plan (1) Acute diverticulitis: Status: Acute Plan 52 year old female admitted with acute uncomplicated diverticulitis. She is improving with nonoperative measures. WBC is downtrending appropriately. Can continue supportive measures with IV abx- would continue clears for now. Time Spent With Patient Time: Total time managing care of this patient today ____ minutes. Quality Stroke Does the patient have a stroke diagnosis?: No VTE Prior VTE?: No VTE Risk Level:: Medical - moderate - high VTE Device Contraindication: N/A - Device Ordered VTE Drug Contraindication: N/A - Med Ordered
[2022-12-18] MEDS: 0.9 % Sodium Chloride Flush 3 ML SYRINGE IVFLUSH ×2 (08:12→19:14)
[2022-12-18] MEDS: buPROPion HCL 75 MG TABLET PO ×2 (08:12→20:45)
[2022-12-18] MEDS: Enoxaparin Sodium 40 MG/0.4 ML SYRINGE SUBCUT (08:12)
[2022-12-18] MEDS: Multivitamin TABLET 1 TAB PO (08:12)
[2022-12-18] MEDS: Propranolol HCL 10 MG TABLET PO ×2 (08:12→20:45)
--- NOTE | 2022-12-18 10:38 | P.PNIM_ITS ---
Subjective Subjective Date of Service: 12/18/22 Interval History: f/u on acute diverticulitis interval history : feels better, mod pain, toelerating liquid diet Physical Exam Vital Signs: Vital Signs: Last Vital Signs Temp 97.4 F 12/18/22 07:54 Pulse 64 12/18/22 07:54 Resp 16 12/18/22 07:54 BP 120/56 L 12/18/22 07:54 Pulse Ox 97 12/18/22 07:54 O2 Del Method Room Air 12/18/22 07:54 BMI result Body Mass Index 28.4 Const: Other: General: AO X 3, no acute distress Resp: CTA bilateral CVS: S1,S2,RRR GI: +BS,mild tenderness Skin: No rash Neuro: motor grossly intact Psych: appropriate affect Objective Data Active Medications Acetaminophen/Butalbital/Caffeine (Butalb/Acetamin/Caff 50/325/40 Tablet) 1 tab PO DAILY PRN PRN Reason: Migraine Headache Albuterol Sulfate (Albuterol Sulfate 90 Mcg 8 Gm Inhaler) 2 puff INHALE Q4H PRN PRN Reason: Shortness Of Breath Atorvastatin Calcium (Atorvastatin Calcium 80 Mg Tablet) 80 mg PO BEDTIME [facility] Last Admin: 12/17/22 21:33 Dose: 80 mg Documented By: MARICHUY Brexpiprazole (Brexpiprazole 1 Mg Tablet) 1 mg PO BEDTIME [facility] Last Admin: 12/17/22 21:33 Dose: 1 mg Documented By: MARICHUY Bupropion HCl (Bupropion Hcl 75 Mg Tablet) 75 mg PO BID [facility] Last Admin: 12/18/22 08:12 Dose: 75 mg Documented By: RONALD Divalproex Sodium (Divalproex Sodium Er 250 Mg Tab.Er.24h) 250 mg PO BEDTIME [facility] Last Admin: 12/17/22 20:02 Dose: 250 mg Documented By: MARICHUY Enoxaparin Sodium (Enoxaparin Sodium 40 Mg/0.4 Ml Syringe) 40 mg SUBCUT Q24H [facility] Last Admin: 12/18/22 08:12 Dose: 40 mg Documented By: RONALD Lactated Ringer's (Lr) 1,000 mls @ 80 mls/hr IVCONT .[id number] [facility] Last Infusion: 12/18/22 02:35 Dose: 80 mls/hr Documented By: MADHU Piperacillin Sod/Tazobactam (Sod 3.375 gm/ Sodium Chloride) 50 mls @ 100 mls/hr IV Q6H [facility] Last Infusion: 12/18/22 09:02 Dose: 0 mls/hr Documented By: RONALD Morphine Sulfate (Morphine Sulfate 2 Mg/Ml Cartridge) 2 mg IVPUSH Q4H PRN; Protocol PRN Reason: Pain, Severe (Pain Scale 7-10) Multivitamins/Vitamin C (Multivitamin Tablet) 1 tab PO DAILY [facility] Last Admin: 12/18/22 08:12 Dose: 1 tab Documented By: RONALD Ondansetron HCl (Ondansetron Hcl 4 Mg/2 Ml Vial) 4 mg IVPUSH Q4H PRN PRN Reason: Nausea Pharmacy Consult (Consult Rx Perform Med Rec) 1 each MISCELLANE ONCE PRN PRN Reason: Consult order Propranolol HCl (Propranolol Hcl 10 Mg Tablet) 10 mg PO BID [facility]; Protocol Last Admin: 12/18/22 08:12 Dose: 10 mg Documented By: RONALD Sodium Chloride (0.9 % Sodium Chloride Flush 3 Ml Syringe) 3 ml IVFLUSH QSHIFT [facility] Last Admin: 12/18/22 08:12 Dose: 3 ml Documented By: RONALD Labs 12/18/22 05:46 12/18/22 05:46 Labs: Laboratory Results - last 24 hr 12/18/22 12/18/22 05:46 05:46 MCV 89.2 MCH 28.5 MCHC 32.0 RDW 14.8 Plt Count 273 MPV 9.5 Absolute Nucleated RBC 0.000 Nucleated RBC % (auto) 0.0 Anion Gap 10 L Estim Creat Clear Calc 93.5 Estimated GFR > 60 Random Glucose 86 Calcium 9.0 Total Bilirubin 1.2 H AST 10 ALT 13 Alkaline Phosphatase 64 Total Protein 5.3 L Albumin 3.2 L Microbiology Microbiology Results: Microbiology 12/17/22 07:25 Blood Culture - Preliminary Blood - Venous No growth after 24 hours. 12/17/22 07:25 Blood Culture - Preliminary Blood - Venous No growth after 24 hours. Assessment and Plan (1) Acute diverticulitis: Status: Acute Plan 52-year-old female with abdominal pain-found to have diverticulitis 1. Acute diverticulitis--improving, WBC down -continue IV Abx for one more day -advance to full liquid diet -Surgery and GI input noted 2.hlp: Continue statin 3. Hypertension:? Continue home medication propanolol. 4. hx of anxiety: continue home meds dvt prophylax:? s/c lovenox. jared for inpt: IV Abx for acute diverticultitis, and diet been advanced Time Spent With Patient Time: Total time managing care of this patient today ____ minutes. Quality Stroke Does the patient have a stroke diagnosis?: No VTE Prior VTE?: No VTE Risk Level:: Medical - moderate - high VTE Device Contraindication: N/A - Device Ordered VTE Drug Contraindication: N/A - Med Ordered
--- NOTE | 2022-12-18 11:22 | MHC.CM.PN ---
pt lives with her children she is independent has own ride home is [facility] [place] no servrufinais
[2022-12-18 15:38] VITALS: BP 96/50; PULSE 97; RESP 20; TEMP 36; O2SAT 97
[2022-12-18 20:00] VITALS: BP 114/55; PULSE 61; RESP 20; TEMP 36; O2SAT 96
[2022-12-18] MEDS: Atorvastatin Calcium 80 MG TABLET PO (20:46)
[2022-12-18] MEDS: Brexpiprazole 1 MG TABLET PO (20:46)
[2022-12-18] MEDS: Divalproex Sodium ER 250 MG TAB.ER.24H PO (20:46)
[2022-12-19] MEDS: Piperacillin Sodium/Tazobactam 3.375 GM in 0.9 % Sodium Chloride 50 ML IV ×2 (01:14→07:27)
[2022-12-19 04:00] VITALS: BP 111/55; PULSE 61; RESP 16; TEMP 36.1; O2SAT 96
[2022-12-19] MEDS: buPROPion HCL 75 MG TABLET PO (07:28)
[2022-12-19] MEDS: Propranolol HCL 10 MG TABLET PO (07:28)
[2022-12-19] MEDS: Multivitamin TABLET 1 TAB PO (07:28)
[2022-12-19] MEDS: 0.9 % Sodium Chloride Flush 3 ML SYRINGE IVFLUSH (07:29)
[2022-12-19 07:42] VITALS: BP 118/56; PULSE 67; RESP 16; TEMP 36.1; O2SAT 97
--- NOTE | 2022-12-19 10:43 | P.PNGS_ITS ---
Subjective Subjective Date of Service: 12/19/22 Interval history: Feels much better this morning. Pain improved. Passing flatus and moving bowels. Wants to eat. Physical Exam Vital Signs: Vital Signs: Last Vital Signs Temp 97 F 12/19/22 07:42 Pulse 67 12/19/22 07:42 Resp 16 12/19/22 07:42 BP 118/56 L 12/19/22 07:42 Pulse Ox 97 12/19/22 07:42 O2 Del Method Room Air 12/19/22 07:42 BMI result Body Mass Index 28.4 Const: General: comfortable, no acute distress and alert Orientation/consciousness: patient oriented x3 Resp: Effort & Inspection: normal respiratory effort GI: Inspection: No distended Palpation (GI): Soft to palpation, Tenderness to palpation present (GI) (suprapubic tenderness, mild), no guarding and not rigid Percussion: Yes normal to percussion Skin: General skin exam: no rashes or lesions noted Neuro: General: patient oriented x3 and moves all extremities Objective Data Active Medications Acetaminophen/Butalbital/Caffeine (Butalb/Acetamin/Caff 50/325/40 Tablet) 1 tab PO DAILY PRN PRN Reason: Migraine Headache Albuterol Sulfate (Albuterol Sulfate 90 Mcg 8 Gm Inhaler) 2 puff INHALE Q4H PRN PRN Reason: Shortness Of Breath Atorvastatin Calcium (Atorvastatin Calcium 80 Mg Tablet) 80 mg PO BEDTIME [facility] Last Admin: 12/18/22 20:46 Dose: 80 mg Documented By: HOANG Brexpiprazole (Brexpiprazole 1 Mg Tablet) 1 mg PO BEDTIME [facility] Last Admin: 12/18/22 20:46 Dose: 1 mg Documented By: HOANG Bupropion HCl (Bupropion Hcl 75 Mg Tablet) 75 mg PO BID [facility] Last Admin: 12/19/22 07:28 Dose: 75 mg Documented By: RONALD Divalproex Sodium (Divalproex Sodium Er 250 Mg Tab.Er.24h) 250 mg PO BEDTIME [facility] Last Admin: 12/18/22 20:46 Dose: 250 mg Documented By: HOANG Enoxaparin Sodium (Enoxaparin Sodium 40 Mg/0.4 Ml Syringe) 40 mg SUBCUT Q24H [facility] Last Admin: 12/19/22 10:01 Dose: Not Given Documented By: RONALD Non-Admin Reason: Patient Refused Piperacillin Sod/Tazobactam (Sod 3.375 gm/ Sodium Chloride) 50 mls @ 100 mls/hr IV Q6H [facility] Last Infusion: 12/19/22 07:59 Dose: 0 mls/hr Documented By: RONALD Morphine Sulfate (Morphine Sulfate 2 Mg/Ml Cartridge) 2 mg IVPUSH Q4H PRN; Protocol PRN Reason: Pain, Severe (Pain Scale 7-10) Multivitamins/Vitamin C (Multivitamin Tablet) 1 tab PO DAILY [facility] Last Admin: 12/19/22 07:28 Dose: 1 tab Documented By: RONALD Ondansetron HCl (Ondansetron Hcl 4 Mg/2 Ml Vial) 4 mg IVPUSH Q4H PRN PRN Reason: Nausea Pharmacy Consult (Consult Rx Perform Med Rec) 1 each MISCELLANE ONCE PRN PRN Reason: Consult order Propranolol HCl (Propranolol Hcl 10 Mg Tablet) 10 mg PO BID [facility]; Protocol Last Admin: 12/19/22 07:28 Dose: 10 mg Documented By: RONALD Sodium Chloride (0.9 % Sodium Chloride Flush 3 Ml Syringe) 3 ml IVFLUSH QSHIFT [facility] Last Admin: 12/19/22 07:29 Dose: 3 ml Documented By: RONALD Labs 12/18/22 05:46 12/18/22 05:46 Microbiology Microbiology Results: Microbiology 12/17/22 07:25 Blood Culture - Preliminary Blood - Venous No growth after 48 hours. 12/17/22 07:25 Blood Culture - Preliminary Blood - Venous No growth after 48 hours. Procedures Date of Service Date of Service: 12/19/22 Progress Note: A&P Assessment and plan (1) Acute diverticulitis: Status: Acute Plan 52 year old female admitted with acute uncomplicated diverticulitis. She continues to improve with nonoperative measures. Advance diet as tolerated. Stable for dc with PO abx once tolerating solid diet. Can f/u in office. Needs to follow up with GI doctor for repeat colo. Time Spent With Patient Time: Total time managing care of this patient today ____ minutes. Quality Stroke Does the patient have a stroke diagnosis?: No VTE Prior VTE?: No VTE Risk Level:: Medical - moderate - high VTE Device Contraindication: N/A - Device Ordered VTE Drug Contraindication: N/A - Med Ordered
--- NOTE | 2022-12-19 12:44 | P.DS_ITS ---
DS: Providers Provider Date of Service: 12/19/22 Date of admission: 12/17/22 09:35 Primary care physician: Jennifer Toussaint MD Consults: 12/17/22 09:36 Consult to Gastroenterology Routine Consulting Provider: Rosendo Samano Reason for consultation: abd pain -diverticulitis Has provider been notified: No 12/17/22 10:49 Consult to General Surgery Routine Consulting [place] [facility] [place] [facility] Reason for consultation: Diverticulitis/question of microperforation Has provider been notified: No DS: Diagnosis Discharge Diagnosis (1) Acute diverticulitis: Status: Acute DS: Summary Hospital Course Hospital Course: Patient presented with acute abdominal pain and was found to have acute? Diverticulitis of the distal descending colon. Tiny foci of free air in this region from microperforation cannot be excluded. No discrete abscess identified on this noncontrast exam.? Patient was admitted and given IV Zosyn and made a rapid recovery, abdominal exam is fairly bening, diet has been advanced. She was evaluated by Dr. Salinas of surgery and recommended for outpatient GI and surgery follow up. Will discharge with PO Augmentin and Flagyl for 7 more days. Time Spent with Patient Time attestation: Total time managing care of this patient today ____ minutes. Discharge coordination time: Greater than 30 minutes Quality: Safe Use of Opioids Does Pt have an Active Cancer Diagnosis on the Problem List?: No Quality: Stroke Does the patient have a stroke diagnosis?: No Physical Exam Vital Signs: Vital Signs: Last Vital Signs Temp 97 F 12/19/22 07:42 Pulse 67 12/19/22 07:42 Resp 16 12/19/22 07:42 BP 118/56 L 12/19/22 07:42 Pulse Ox 97 12/19/22 07:42 O2 Del Method Room Air 12/19/22 07:42 BMI result Body Mass Index 28.4 Const: Other: General: AO X 3, no acute distress Resp: CTA bilateral CVS: S1,S2,RRR GI: +BS, NT, no distention Skin: No rash Neuro: motor grossly intact Psych: appropriate affect DS: Data Data Completed and Pending Completed studies during hospitalization [Text1]: Procedures Excision of Stomach, Percutaneous Endoscopic Approach, Vertical (04/04/22) Labs on day of discharge: Preliminary micro results at discharge 12/17/22 07:25 Blood Culture - Preliminary Blood - Venous No growth after 48 hours. 12/17/22 07:25 Blood Culture - Preliminary Blood - Venous No growth after 48 hours. Discharge Plan Discharge Anticipated Discharge Date/Time: 12/19/22 12:40 Patient Disposition: Home, Self-Care Discharge Diagnosis: Acute diverticulitis Referrals: Jennfier Toussaint MD [Primary Care Provider] - Oral Monahan MD [Physician] - 2 Weeks Discharge Medications: New amoxicillin-pot clavulanate 875-125 mg tablet 1 tab PO BID Qty: 14 0RF metronidazole 500 mg tablet 500 mg PO Q12H Qty: 14 0RF Continued propranolol 10 mg tablet 10 mg PO BID 90 Days Qty: 180 3RF atorvastatin 80 mg tablet 80 mg PO BEDTIME Rexulti 1 mg tablet 1 mg PO DAILY multivitamin Tablet 1 tab PO DAILY divalproex 250 mg tablet extended release 24 hr 250 mg PO BEDTIME albuterol sulfate 90 mcg/actuation HFA aerosol inhaler 90 mcg inhalation Q4H PRN (Reason: Shortness Of Breath) ftiffqiqiz-vmatfpapkjces-rjoi 50-325-40 mg tablet 1 tab PO DAILY PRN (Reason: Migraine Headache) Hold Instructions: until discussed with Dr Romo bupropion HCl 75 mg tablet 75 mg PO BID Discharge Orders: Discharge Order (Routine); Ordered 12/19/22 Ordered By: Husam Hurtado Diet: Advance to usual diet Activity on Discharge: As tolerated Stand Alone Forms: Patient Portal Discharge page Activity Restrictions/Additional Instructions: Return to the emergency department immediately if worsening of the abdominal pain, fever, chills, intractable vomiting. Care Plan Goals: Full recovery from diverticulitis Health Concerns: Acute diverticulitis Plan of Treatment: Follow-up with Dr. Monahan on outpatient basis, Take Augmentin and Flagyl as recommended Assessment: See above Patient Instructions: Diverticulitis (ED) Discharge Date/Time: 12/19/22 15:00
--- NOTE | 2022-12-19 15:40 | MHC.CM.PN ---
pt dcd home with no skilled servceis
== END 2022-12-19 15:00 | disposition home or self-care (01) | DRG 244 ==
LOC: HO.ED 07:09 → HO.EDOVER 09:40 → HO.S3 18:16
PROVIDERS: Admitting Provider Internal Medicine; Emergency Provider Emergency Medicine; PCP Internal Medicine Endocrinology, Diabetes & Metabolism; Visit Provider Internal Medicine
DX: K57.20 Diverticulitis of large intestine with perforation and abscess without bleeding (principal); K76.0 Fatty (change of) liver, not elsewhere classified; I10 Essential (primary) hypertension; E78.00 Pure hypercholesterolemia, unspecified; F41.9 Anxiety disorder, unspecified; G47.33 Obstructive sleep apnea (adult) (pediatric); Z98.84 Bariatric surgery status; Z79.899 Other long term (current) drug therapy
CPT/HCPCS: 36415; 74176; 80048; 80053; 80076; 81003; 81025; 83605; 83690; 85025; 85027; 87040; 99285; J1650; J1956; J2270; J2405; J2543

== ENCOUNTER → 2022-12-25 14:34 | Outpatient (BNVA) | payer BC, SELFPAY | PROVIDERS: PCP Internal Medicine Endocrinology, Diabetes & Metabolism; Visit Provider Surgery ==

== ENCOUNTER → 2023-01-16 12:34 | Outpatient (BNVA) | payer BC, SELFPAY | PROVIDERS: PCP Internal Medicine Endocrinology, Diabetes & Metabolism; Visit Provider Physician Assistant Surgical ==

== ENCOUNTER 2023-04-08 08:18 | Outpatient (AMB) | payer BC, SELFPAY ==
--- NOTE | 2023-04-08 08:22 | MHC.OFFVISWM ---
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 Presents for 1 year post op visit. Weight today is 151.4 pounds, with a BMI of 26.? There has been a 137.6 pound weight loss,(initial weight 289 pounds) since starting the program on 01/09/22 reflecting a 47.6% total body weight loss and a weight loss of 101.6 pounds since surgery (operative weight 253 pounds) reflecting a 40.1% TBWL since surgery. States she is satisfied with her current meal plan and weight. Wants to maintain weight. Trying to be more active but has not joined the gym Present meal plan includes: Equate RTD shake, (30 gm pro), 8 am Wrap for lunch w turkey or ham and cheese 2pm, Bar or yogurt (Fit crunch) meal 7 forks protein and 7 forks veg Berries w ff whipped cream Drinkin-96 oz water ? Exercise routine includes: had to move treadmill due to water damage, intends to resume in the next week Any post op complications: none ABHIJIT: improved DM: never HTN: resolved Hyperlipidemia: familial, improved GERD:?0-5 scale ??0 = no symptoms ??1 = symptoms noticeable but not bothersome 2 =symptoms bothersome but not daily ? 3 = symptoms bothersome and daily 4 = symptoms affect daily activities 5 = symptoms are incapacitating, unable to do daily activities ? How bad is the heartburn: 0 ? Heartburn while lying down: 0 ? Heartburn when standing up: 0 ? Heartburn after meals: 0 ? Does heartburn change your diet: 0 ? Does heartburn wake you up from sleep: 0 ? Do you have difficulty swallowin ? Do you have pain with swallowin ? If you take medicine for your reflux, does this affect your daily life: 0 Satisfaction with present condition - satisfied or not satisfied: satisfied [facility] Medical History Seizure Steatosis, liver Anxiety On beta jeanette at home History of atrial fibrillation Nausea Asthma Dysphagia ABHIJIT on CPAP Elevated troponin HTN (hypertension) Panic attack Migraines High cholesterol Surgical History H/O gastric sleeve Hx of colonoscopy History of esophagogastroduodenoscopy (EGD) History of myomectomy History of hysterectomy History of appendectomy Family History Mother Atrial fibrillation Father Heart valve problem Son ADHD Daughter ADHD Sister Diabetes High cholesterol Factor 5 Leiden mutation, heterozygous Brother No problems noted. Social History Household Members: Family Housing: House Are you a primary critical care specialist to a significant other at home: No Do you presently have visiting nurse or other home services: No Alcohol intake: current Patient Tobacco Use Status: Never used Tobacco Second Hand Smoke Exposure: No service: No Current occupational status: employed Review of Systems Const All systems reviewed & are unremarkable except as noted in HPI and below Physical Exam Vital Signs: Last Vital Signs Temp 97.8 F 04/08/23 08:30 Pulse 63 04/08/23 08:30 BP 138/68 04/08/23 08:30 Pulse Ox 98 04/08/23 08:30 Oxygen Delivery Method Room Air 04/08/23 08:30 BMI result Body Mass Index 26.0 Const General: cooperative and no acute distress Orientation/consciousness: patient oriented x3 Resp Effort & Inspection: normal respiratory effort Auscultation: clear to auscultation bilaterally Cardio Rate: regular rate Rhythm: regular rhythm GI Inspection: Yes normal to inspection and Yes incision (well healed) Palpation (GI): Soft to palpation and no masses Neuro General: patient oriented x3 Assessment & Plan Assessment & Plan (1) Overweight (BMI 25.0-29.9): Code(s): E66.3 - Overweight Plan: has made great progress. Discussed importance of exercise may maintain meal plan and try tfor yoga 2 days and treadmill5 days. may add weights if she wishes and was encouraged to do so. check 1 year labs rtc telehealth 6 weeks Orders: Orders Insulin Today E66.3 - Overweight, I10 - Essential (primary) hypertension, K76.0 - Fatty (change of) liver, not elsewhere classified, Z98.84 - Bariatric surgery status Complete Blood Count Auto Diff Today E66.3 - Overweight, I10 - Essential (primary) hypertension, K76.0 - Fatty (change of) liver, not elsewhere classified, Z98.84 - Bariatric surgery status Zinc Today E66.3 - Overweight, I10 - Essential (primary) hypertension, K76.0 - Fatty (change of) liver, not elsewhere classified, Z98.84 - Bariatric surgery status Vitamin A Today E66.3 - Overweight, I10 - Essential (primary) hypertension, K76.0 - Fatty (change of) liver, not elsewhere classified, Z98.84 - Bariatric surgery status PTHI Today E66.3 - Overweight, I10 - Essential (primary) hypertension, K76.0 - Fatty (change of) liver, not elsewhere classified, Z98.84 - Bariatric surgery status TSH reflex Free T4 Today E66.3 - Overweight, I10 - Essential (primary) hypertension, K76.0 - Fatty (change of) liver, not elsewhere classified, Z98.84 - Bariatric surgery status Vitamin D 25-OH Total Today E66.3 - Overweight, I10 - Essential (primary) hypertension, K76.0 - Fatty (change of) liver, not elsewhere classified, Z98.84 - Bariatric surgery status Hemoglobin A1c Today E66.3 - Overweight, I10 - Essential (primary) hypertension, K76.0 - Fatty (change of) liver, not elsewhere classified, Z98.84 - Bariatric surgery status Basic Metabolic Panel Today E66.3 - Overweight, I10 - Essential (primary) hypertension, K76.0 - Fatty (change of) liver, not elsewhere classified, Z98.84 - Bariatric surgery status Lipid Panel Today E66.3 - Overweight, I10 - Essential (primary) hypertension, K76.0 - Fatty (change of) liver, not elsewhere classified, Z98.84 - Bariatric surgery status IRON PROFILE Today E66.3 - Overweight, I10 - Essential (primary) hypertension, K76.0 - Fatty (change of) liver, not elsewhere classified, Z98.84 - Bariatric surgery status Vitamin B12 and Folate Today E66.3 - Overweight, I10 - Essential (primary) hypertension, K76.0 - Fatty (change of) liver, not elsewhere classified, Z98.84 - Bariatric surgery status Vitamin B1 Today E66.3 - Overweight, I10 - Essential (primary) hypertension, K76.0 - Fatty (change of) liver, not elsewhere classified, Z98.84 - Bariatric surgery status C Reactive Protein Today E66.3 - Overweight, I10 - Essential (primary) hypertension, K76.0 - Fatty (change of) liver, not elsewhere classified, Z98.84 - Bariatric surgery status Ferritin Today E66.3 - Overweight, I10 - Essential (primary) hypertension, K76.0 - Fatty (change of) liver, not elsewhere classified, Z98.84 - Bariatric surgery status Coding Level of Care Code Est Pt Level 4 (36463) Diagnoses Overweight (BMI 25.0-29.9) E66.3 Time Spent (min) 40
[2023-04-08 08:30] VITALS: BP 138/68; PULSE 63; TEMP 36.6; O2SAT 98; BMI 26.0
== END 2023-04-08 08:54 | disposition home or self-care (01) ==
PROVIDERS: PCP Internal Medicine Endocrinology, Diabetes & Metabolism; Visit Provider Physician Assistant Surgical
DX: E66.3 Overweight (principal); Z68.26 Body mass index [BMI] 26.0-26.9, adult
CPT/HCPCS: 99214

== ENCOUNTER 2023-04-08 08:18 | Outpatient (REF) | payer BC, SELFPAY ==
[2023-04-08 09:28] LABS: MANUAL DIFF FLAG NO
[2023-04-08 09:51] LABS: Basophils Percent Auto 0.4 % (0-2); Eosinophils Absolute Auto 0.1 X10*3/uL (0.0-0.4); Eosinophils Percent Auto 1.8 % (0-4); Hematocrit 45.2 % (37.0-47.0); Hemoglobin 14.4 g/dl (12.0-16.0); Imm Gran Abs Auto 0.01 X10*3/uL (0.00-0.03); Imm Gran Pct Auto 0.1 % (0.0-0.4); Lymphocytes Absolute Auto 2.8 X10*3/uL (1.2-4.9); Lymphocytes Percent Auto 36.5 % (20-40); Mean Corpuscular HGB Conc 31.9 g/dl (31.0-35.0); Mean Corpuscular Volume 87.9 fL (80.0-98.0); Mean Platelet Volume 9.8 fL (9.4-12.3); Monocytes Absolute Auto 0.5 X10*3/uL (0.1-1.2); Monocytes Percent Auto 6.3 % (2-11); Neutrophils Absolute Auto 4.3 x10*3/uL (2.0-8.3); Neutrophils Percent Auto 54.9 % (45-73); Platelet Count 289 X10*3/uL (160-400); Red Blood Count 5.14 X10*6/uL (4.20-5.50); Red Cell Distribution Width 13.9 % (11.0-16.0); White Blood Count 7.8 X10*3/uL (4.8-10.8)
[2023-04-08 09:54] LABS: Estimated Average Glucose 97 mg/dL
[2023-04-08 10:39] LABS: Anion Gap 14 (12-20); Blood Urea Nitrogen 10 mg/dL (9-16); C Reactive Protein < 0.04 mg/dL (< or = 0.50); Calcium 9.7 mg/dL (8.4-10.2); Carbon Dioxide 27 mmol/L (22-29); Chloride 106 mmol/L (96-108); Cholesterol 184 mg/dL (<200); Estimated Glomerular Filt Rate > 60; Glucose Random 105 mg/dL (60-115); HDL Cholesterol 47 mg/dL (>40); Iron 91 mcg/dL (30-160); LDL Cholesterol Calculated 125 mg/dL (<100); Percent Iron Saturation 34 % (15-50); Potassium 4.1 mmol/L (3.3-5.1); Sodium 143 mmol/L (135-145); Total Iron Binding Capacity 271 mcg/dL (228-428); Triglycerides 61 mg/dL (<150); Unsaturated Iron Binding 180 ug/dL
[2023-04-08 10:57] LABS: Ferritin 155 ng/mL (10-250); Insulin 8 uU/mL (2-29); TSH reflex Free T4 0.76 uIU/mL (0.32-4.0); Vitamin D 25-OH Total 48.3 ng/mL (>30)
[2023-04-08 11:04] LABS: Folate 17.1 ng/mL (> or = 4.0); Vitamin B12 1441 pg/mL (200-900)
[2023-04-09 15:18] LABS: Calcium (PTHI) 9.7 mg/dL (8.6-10.4); PTHI 21 pg/mL (16-77)
[2023-04-12 02:19] LABS: Zinc 114 mcg/dL (60-130)
[2023-04-13 05:49] LABS: Vitamin B1 33 nmol/L (8-30)
[2023-04-13 17:53] LABS: Vitamin A 47 mcg/dL (38-98)
== END 2023-04-08 08:19 | disposition home or self-care (01) ==
LOC: HO.LAB 08:18
PROVIDERS: PCP Internal Medicine Endocrinology, Diabetes & Metabolism; Visit Provider Physician Assistant Surgical
DX: E66.3 Overweight (principal); I10 Essential (primary) hypertension; K76.0 Fatty (change of) liver, not elsewhere classified; Z98.84 Bariatric surgery status; Z79.899 Other long term (current) drug therapy
CPT/HCPCS: 36415; 80048; 80061; 82306; 82607; 82728; 82746; 83036; 83525; 83540; 83970; 84425; 84443; 84590; 84630; 85025; 86140

== ENCOUNTER 2023-05-20 11:11 | Outpatient (AMB) | payer BC, SELFPAY ==
[2023-05-20 10:35] VITALS: BMI 25.4
--- NOTE | 2023-05-20 10:35 | A.OFFVIS_ITS ---
Intake VS Expanded 05/20/23 10:35 Height 5 ft 4 in Weight 148 lb BMI 25.4 Intake Visit Reasons: (tv) PO LSG 04/04/22 Allergies camphor Adverse Reaction (Intermediate, Verified 04/08/23 08:25) Hives HPI HPI Comments History of Present Illness Details This?a?52?yo female who is s/p LSG without hiatal hernia repair on?04/04/22. Presents for 1 year 2 month post op visit. Weight today is 148 pounds, with a BMI of 25.4.? There has been a 141 pound weight loss,(initial weight 289 pounds) since starting the program on 01/09/22 reflecting a 48.7% total body weight loss and a weight loss of 105 pounds since surgery (operative weight 253 pounds) reflecting a 40.1% TBWL since surgery. States she is satisfied with her current meal plan and weight. She has experienced a right foot drop foot over the last month. She has seen [facility] and was told that it is healing. Follow up appointment today. She additionally has excess skin of the abdomen but no complaints of rash at this. Continues on bariatric fusion MVI. Present meal plan includes: Equate RTD shake, (30 gm pro), 8 am Wrap for lunch w turkey or ham and cheese 2pm, Bar or yogurt (Fit crunch) meal 7 forks protein and 7 forks veg Berries w ff whipped cream Drinkin-96 oz water ? Exercise routine includes: arm weights but no cardio due to the drop foot. [facility] Medical History Seizure Steatosis, liver Anxiety On beta jeanette at home History of atrial fibrillation Nausea Asthma Dysphagia ABHIJIT on CPAP Elevated troponin HTN (hypertension) Panic attack Migraines High cholesterol Surgical History H/O gastric sleeve Hx of colonoscopy History of esophagogastroduodenoscopy (EGD) History of myomectomy History of hysterectomy History of appendectomy Family History Mother Atrial fibrillation Father Heart valve problem Son ADHD Daughter ADHD Sister Diabetes High cholesterol Factor 5 Leiden mutation, heterozygous Brother No problems noted. Social History Household Members: Family Housing: House Are you a primary patient care representative to a significant other at home: No Do you presently have visiting nurse or other home services: No Alcohol intake: current Patient Tobacco Use Status: Never used Tobacco Second Hand Smoke Exposure: No service: No Current occupational status: employed Assessment & Plan Assessment & Plan (1) Overweight (BMI 25.0-29.9): Code(s): E66.3 - Overweight Plan: The patient is overall satisfied with her progress and current weight. She will continue with the current meal plan and follow-up with [facility] regarding her new right drop foot. She will resume exercises she is able. She will contact us with any concerns about excess skin causing a rash. Follow-up in the office 07/01/2023. Telehealth Telehealth Location of provider rendering services: practice address Location of patient: address on file Patient Identification confirmed using: Name, : Yes Telehealth method: voice only Patient verbally consented to treatment: Yes Patient verbally consented to billing insurance company: Yes Patient informed of any privacy concerns related to visit: Yes Minutes spent on Phone/Video with Pt.: 15 Coding Level of Care Code Tele Est Pt Level 3 (78393) Diagnoses Overweight (BMI 25.0-29.9) E66.3 Time Spent (min) 20
== END 2023-05-20 12:23 | disposition home or self-care (01) ==
LOC: HO.HBS 11:11
PROVIDERS: PCP Internal Medicine Endocrinology, Diabetes & Metabolism; Visit Provider Physician Assistant Surgical
DX: E66.3 Overweight (principal); Z68.25 Body mass index [BMI] 25.0-25.9, adult; Z90.3 Acquired absence of stomach [part of]; Z98.84 Bariatric surgery status
CPT/HCPCS: 98967; 99213; 99442

== ENCOUNTER → 2023-05-20 11:11 | Outpatient (BNVA) | payer BC, SELFPAY | PROVIDERS: PCP Internal Medicine Endocrinology, Diabetes & Metabolism; Visit Provider Physician Assistant Surgical | DX: E66.3 Overweight (principal); Z98.84 Bariatric surgery status; I10 Essential (primary) hypertension; K76.0 Fatty (change of) liver, not elsewhere classified ==

== ENCOUNTER 2023-07-01 11:05 | Outpatient (AMB) | payer BC, SELFPAY ==
[2023-07-01 09:37] VITALS: BMI 25.9
--- NOTE | 2023-07-01 09:37 | MHC.OFFVISWM ---
Intake VS Expanded 07/01/23 09:37 Height 5 ft 4 in Weight 150 lb 12.8 oz BMI 25.9 Body Fat % 31. Body Fat Mass 47.8 Fat Free Mass 103 Visceral Fat Rating 9 Body Water % 46.9 Body Water Mass 70.7 Muscle Mass/Score 96.8 Intake Visit Reasons: (tv) PO LSG 04/04/22 Technologist Infectious Disease Required: No Allergies camphor Adverse Reaction (Intermediate, Verified 04/08/23 08:25) Hives Medication List - Last Reconciled 07/01/23 by DYANA Greer albuterol sulfate 90 mcg/actuation 90 mcg inhalation Q4H PRN atorvastatin 80 mg PO BEDTIME brexpiprazole (Rexulti) 2 mg PO DAILY rhywmkgytl-gimcxalcnqols-hyfq 50-325-40 mg 1 tab PO DAILY PRN divalproex ER 250 mg PO BEDTIME methylphenidate HCl (Ritalin) 10 mg PO DAILY multivitamin 1 tab PO DAILY propranolol 10 mg PO BID 90 days HPI HPI Comments History of Present Illness Details This?a?52?yo female who is s/p LSG without hiatal hernia repair on?04/04/22. Presents for 1 year 3 month post op visit. Weight today is 150.8 pounds, with a BMI of 25.9.? There has been a 138.2 pound weight loss,(initial weight 289 pounds) since starting the program on 01/09/22 reflecting a 47.8% total body weight loss and a weight loss of 102.2 pounds since surgery (operative weight 253 pounds) reflecting a 40.3% TBWL since surgery. States she is satisfied with her current meal plan and weight. She had experienced a right foot drop foot, has been seen [facility] and was told that it is resolved and she may resume exercise. It was felt that is was from weight loss and subsequent crossing her legs and she is no longer doing that and has no further pain. She additionally has excess skin of the abdomen but no complaints of rash at this. Continues on bariatric fusion MVI, and damien + D. Present meal plan includes: Equate RTD shake, (30 gm pro), 8 am Wrap for lunch w turkey or ham and cheese 2pm, Bar or yogurt (Fit crunch) meal 7 forks protein and 7 forks veg Berries w ff whipped cream Drinkin-96 oz water ? Exercise routine includes: nothing PFSH Medical History Seizure Steatosis, liver Anxiety On beta jeanette at home History of atrial fibrillation Nausea Asthma Dysphagia ABHIJIT on CPAP Elevated troponin HTN (hypertension) Panic attack Migraines High cholesterol Surgical History H/O gastric sleeve Hx of colonoscopy History of esophagogastroduodenoscopy (EGD) History of myomectomy History of hysterectomy History of appendectomy Family History Mother Atrial fibrillation Father Heart valve problem Son ADHD Daughter ADHD Sister Diabetes High cholesterol Factor 5 Leiden mutation, heterozygous Brother No problems noted. Social History Household Members: Family Housing: House Are you a primary senior care provider to a significant other at home: No Do you presently have visiting nurse or other home services: No Alcohol intake: current Patient Tobacco Use Status: Never used Tobacco Second Hand Smoke Exposure: No service: No Current occupational status: employed Assessment & Plan Assessment & Plan (1) Overweight (BMI 25.0-29.9): Code(s): E66.3 - Overweight Plan: Patient overall is very satisfied with her current meal plan and weight. She does admit dissatisfaction with her exercise routine. She states that she just does not have any significant motivation. She has been encouraged to resume working out, she uses her treadmill at home as well as home videos as she does not like going to the gym. She will return for a telehealth visit in approximately 6 weeks with the understanding that she will text with any questions or concerns. She will return for an in office visit at 18 months postoperative and we will check labs at that time. Telehealth Telehealth Location of provider rendering services: practice address Patient Identification confirmed using: Name, : Yes Telehealth method: voice only Patient verbally consented to treatment: Yes Patient verbally consented to billing insurance company: Yes Patient informed of any privacy concerns related to visit: Yes Minutes spent on Phone/Video with Pt.: 15 Coding Level of Care Code Tele Est Pt Level 3 (43736) Diagnoses Overweight (BMI 25.0-29.9) E66.3 Time Spent (min) 15
== END 2023-07-01 11:12 | disposition home or self-care (01) ==
LOC: HO.HBS 11:05
PROVIDERS: PCP Internal Medicine Endocrinology, Diabetes & Metabolism; Visit Provider Physician Assistant Surgical
DX: E66.3 Overweight (principal); Z68.25 Body mass index [BMI] 25.0-25.9, adult; Z90.3 Acquired absence of stomach [part of]; Z98.84 Bariatric surgery status
CPT/HCPCS: 98967; 99213; 99442

== ENCOUNTER → 2023-07-01 11:05 | Outpatient (BNVA) | payer BC, SELFPAY | PROVIDERS: PCP Internal Medicine Endocrinology, Diabetes & Metabolism; Visit Provider Physician Assistant Surgical | DX: E66.3 Overweight (principal); Z98.84 Bariatric surgery status; I10 Essential (primary) hypertension; K76.0 Fatty (change of) liver, not elsewhere classified ==

== ENCOUNTER 2023-08-12 13:19 | Outpatient (AMB) | payer BC, SELFPAY ==
--- NOTE | 2023-08-12 08:22 | MHC.OFFVISWM ---
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: No Allergies camphor Adverse Reaction (Intermediate, Verified 04/08/23 08:25) Hives Medication List - Last Reconciled 08/12/23 by DYANA Greer albuterol sulfate 90 mcg/actuation 90 mcg inhalation Q4H PRN atorvastatin 80 mg PO BEDTIME brexpiprazole (Rexulti) 2 mg PO DAILY okolnghnys-nxwezkufhrqad-cijz 50-325-40 mg 1 tab PO DAILY PRN divalproex ER 250 mg PO BEDTIME methylphenidate HCl (Ritalin) 10 mg PO DAILY multivitamin 1 tab PO DAILY propranolol 10 mg PO BID 90 days HPI HPI Comments History of Present Illness Details This?a?52?yo female who is s/p LSG without hiatal hernia repair on?04/04/22. Presents for 1 year 4 month post op visit. Weight today is 155.6 pounds, with a BMI of 26.9.? There has been a 133.4 pound weight loss,(initial weight 289 pounds) since starting the program on 01/09/22 reflecting a 46.1% total body weight loss and a weight loss of 97.4 pounds since surgery (operative weight 253 pounds) reflecting a 38.4% TBWL since surgery. She had a 10 pound weight gain over the holiday by eating too much. She states she hs returned to following the meal plan. She additionally has excess skin of the abdomen but no complaints of rash at this. States goal is to maintain or lose about 5 pounds. Continues on bariatric fusion MVI, and damien + D. Present meal plan includes: Equate RTD shake, (30 gm pro), 8 am Wrap for lunch w turkey or ham and cheese 2pm, Bar (Fit crunch) meal 7 forks protein and 7 forks veg Berries w ff whipped cream Drinkin-96 oz water ? Exercise routine includes: nothing for june started 3 weeks ago: walking treadmill at home or [employer] walking in place, 3 days per week, unable to track calories. went to gym, PF once, stationary bike and leg weights. PFS Medical History Seizure Steatosis, liver Anxiety On beta jeanette at home History of atrial fibrillation Nausea Asthma Dysphagia ABHIJIT on CPAP Elevated troponin HTN (hypertension) Panic attack Migraines High cholesterol Surgical History H/O gastric sleeve Hx of colonoscopy History of esophagogastroduodenoscopy (EGD) History of myomectomy History of hysterectomy History of appendectomy Family History Mother Atrial fibrillation Father Heart valve problem Son ADHD Daughter ADHD Sister Diabetes High cholesterol Factor 5 Leiden mutation, heterozygous Brother No problems noted. Social History Household Members: Family Housing: House Are you a primary senior care assistant to a significant other at home: No Do you presently have visiting nurse or other home services: No Alcohol intake: current Patient Tobacco Use Status: Never used Tobacco Second Hand Smoke Exposure: No service: No Current occupational status: employed Assessment & Plan Assessment & Plan (1) Overweight (BMI 25.0-29.9): Code(s): E66.3 - Overweight Plan: Patient had some dietary indiscretions over the holiday season and gained 10 lb. She has subsequently lost 5 and is looking to lose lose about 5 more. We will change meal plan slightly: 1/2 Equate RTD krishna, (30 gm pro), 8 am Wrap for lunch w turkey or ham and cheese 2pm, half a cup of fresh fruit such as berries or an apple meal 7 forks protein and 7 forks veg Recommend consistency at the gym and tracking calories for goal of 300 per day. We additionally discussed adding weight training in with the oversight of a wellness trainer. She will return to the office as previously scheduled. Additionally, encouraged to text me with any questions or concerns between now and her next visit. Telehealth Telehealth Location of provider rendering services: practice address Location of patient: other Patient Identification confirmed using: Name, : Yes Telehealth method: voice only Patient verbally consented to treatment: Yes Patient verbally consented to billing insurance company: Yes Patient informed of any privacy concerns related to visit: Yes Minutes spent on Phone/Video with Pt.: 15 Coding Level of Care Code Tele Est Pt Level 3 (48292) Diagnoses Overweight (BMI 25.0-29.9) E66.3 Time Spent (min) 20
[2023-08-12 08:23] VITALS: BMI 26.7
== END 2023-08-12 13:20 | disposition home or self-care (01) ==
LOC: HO.HBS 13:20
PROVIDERS: PCP Internal Medicine Endocrinology, Diabetes & Metabolism; Visit Provider Physician Assistant Surgical
DX: E66.3 Overweight (principal); Z68.26 Body mass index [BMI] 26.0-26.9, adult
CPT/HCPCS: 99213

== ENCOUNTER → 2023-08-12 13:19 | Outpatient (BNVA) | payer BC, SELFPAY | PROVIDERS: PCP Internal Medicine Endocrinology, Diabetes & Metabolism; Visit Provider Physician Assistant Surgical | DX: E66.3 Overweight (principal); Z98.84 Bariatric surgery status; I10 Essential (primary) hypertension; K76.0 Fatty (change of) liver, not elsewhere classified ==

== ENCOUNTER 2023-09-23 15:13 | Outpatient (AMB) | payer BC, SELFPAY ==
--- NOTE | 2023-09-23 15:14 | A.OFFVIS_ITS ---
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 Allergies camphor Adverse Reaction (Intermediate, Verified 09/23/23 15:17) Hives Medication List - Last Reconciled 09/23/23 by DYANA Greer albuterol sulfate 90 mcg/actuation 90 mcg inhalation Q4H PRN atorvastatin 80 mg PO BEDTIME brexpiprazole (Rexulti) 2 mg PO DAILY dwagvqphtf-glnufdjytfviy-uxbq 50-325-40 mg 1 tab PO DAILY PRN divalproex ER 250 mg PO BEDTIME fluoxetine 10 mg PO DAILY methylphenidate HCl (Ritalin) 10 mg PO DAILY multivitamin 1 tab PO DAILY propranolol 10 mg PO BID 90 days HPI HPI Comments History of Present Illness Details This?a?52?yo female who is s/p LSG without hiatal hernia repair on?04/04/22. Presents for 1 year 6 month post op visit. Weight today is 155.4 pounds, with a BMI of 26.7.? There has been a 133.6 pound weight loss,(initial weight 289 pounds) since starting the program on 01/09/22 reflecting a 46.2% total body weight loss and a weight loss of 97.6 pounds since surgery (operative weight 253 pounds) reflecting a 38.5% TBWL since surgery. She states she feels great. She offers no concerns or complaints. 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 She has decided to wait on further weight loss until after season. Continues on bariatric fusion MVI, and damien + D. Present meal plan includes: 1 Equate RTD shake, (30 gm pro), 8 am Wrap for lunch w turkey or ham and cheese 2pm, half a cup of fresh fruit such as b erries or an apple meal 7 forks protein and 7 forks veg Drinkin-96 oz water ? Exercise routine includes: walking 1 x per week, not tracking calories while outside and her home treadmill is too old. Any post op complications: none ABHIJIT: improved DM: never HTN: resolved Hyperlipidemia: improved (familial HLD) GERD:?0-5 scale ??0 = no symptoms ??1 = symptoms noticeable but not bothersome 2 =symptoms bothersome but not daily ? 3 = symptoms bothersome and daily 4 = symptoms affect daily activities 5 = symptoms are incapacitating, unable to do daily activities ? How bad is the heartburn: 0 ? Heartburn while lying down: 0 ? Heartburn when standing up: 0 ? Heartburn after meals: 0 ? Does heartburn change your diet: 0 ? Does heartburn wake you up from sleep: 0 ? Do you have difficulty swallowin ? Do you have pain with swallowin ? If you take medicine for your reflux, does this affect your daily life: 0 Satisfaction with present condition - satisfied or not satisfied: augustine [facility] Medical History Seizure Steatosis, liver Anxiety On beta jeanette at home History of atrial fibrillation Nausea Asthma Dysphagia ABHIJIT on CPAP Elevated troponin HTN (hypertension) Panic attack Migraines High cholesterol Surgical History H/O gastric sleeve Hx of colonoscopy History of esophagogastroduodenoscopy (EGD) History of myomectomy History of hysterectomy History of appendectomy Family History Mother Atrial fibrillation Father Heart valve problem Son ADHD Daughter ADHD Sister Diabetes High cholesterol Factor 5 Leiden mutation, heterozygous Brother No problems noted. Social History Household Members: Family Housing: House Are you a primary certified caregiver to a significant other at home: No Do you presently have visiting nurse or other home services: No Alcohol intake: current Patient Tobacco Use Status: Never used Tobacco Second Hand Smoke Exposure: No service: No Current occupational status: employed Physical Exam Const General: cooperative and no acute distress Orientation/consciousness: patient oriented x3 Resp Effort & Inspection: normal respiratory effort Auscultation: clear to auscultation bilaterally Cardio Rate: regular rate Rhythm: regular rhythm GI Inspection: Yes normal to inspection and Yes incision (well healed) Palpation (GI): Soft to palpation and no masses Neuro General: patient oriented x3 Assessment & Plan Assessment & Plan (1) S/P laparoscopic sleeve gastrectomy: Code(s): Z98.84 - Bariatric surgery status Plan: Overall, patient is doing well. 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 We will have her return to the office after , the end of October, per her request, to further address her meal plan and exercise plan. In the meantime, I have suggested that she at least walk on a daily basis. Discussed [employer] vinod to download on her phone so she can track calories when she is walking outside. We will check 18 month postop labs. Orders: Orders Complete Blood Count Auto Diff Today E78.00 - Pure hypercholesterolemia, unspecified, I10 - Essential (primary) hypertension, K76.0 - Fatty (change of) liver, not elsewhere classified, Z98.84 - Bariatric surgery status Lipid Panel Today E78.00 - Pure hypercholesterolemia, unspecified, I10 - Essential (primary) hypertension, K76.0 - Fatty (change of) liver, not elsewhere classified, Z98.84 - Bariatric surgery status C Reactive Protein Today E78.00 - Pure hypercholesterolemia, unspecified, I10 - Essential (primary) hypertension, K76.0 - Fatty (change of) liver, not elsewhere classified, Z98.84 - Bariatric surgery status Vitamin B1 Today E78.00 - Pure hypercholesterolemia, unspecified, I10 - Essential (primary) hypertension, K76.0 - Fatty (change of) liver, not elsewhere classified, Z98.84 - Bariatric surgery status TSH reflex Free T4 Today E78.00 - Pure hypercholesterolemia, unspecified, I10 - Essential (primary) hypertension, K76.0 - Fatty (change of) liver, not elsewhere classified, Z98.84 - Bariatric surgery status Ferritin Today E78.00 - Pure hypercholesterolemia, unspecified, I10 - Essential (primary) hypertension, K76.0 - Fatty (change of) liver, not elsewhere classified, Z98.84 - Bariatric surgery status Vitamin D 25-OH Total Today E78.00 - Pure hypercholesterolemia, unspecified, I10 - Essential (primary) hypertension, K76.0 - Fatty (change of) liver, not elsewhere classified, Z98.84 - Bariatric surgery status Basic Metabolic Panel Today E78.00 - Pure hypercholesterolemia, unspecified, I10 - Essential (primary) hypertension, K76.0 - Fatty (change of) liver, not elsewhere classified, Z98.84 - Bariatric surgery status Insulin Today E78.00 - Pure hypercholesterolemia, unspecified, I10 - Essential (primary) hypertension, K76.0 - Fatty (change of) liver, not elsewhere classified, Z98.84 - Bariatric surgery status Hemoglobin A1c Today E78.00 - Pure hypercholesterolemia, unspecified, I10 - Essential (primary) hypertension, K76.0 - Fatty (change of) liver, not elsewhere classified, Z98.84 - Bariatric surgery status IRON PROFILE Today E78.00 - Pure hypercholesterolemia, unspecified, I10 - Essential (primary) hypertension, K76.0 - Fatty (change of) liver, not elsewhere classified, Z98.84 - Bariatric surgery status Vitamin B12 and Folate Today E78.00 - Pure hypercholesterolemia, unspecified, I10 - Essential (primary) hypertension, K76.0 - Fatty (change of) liver, not elsewhere classified, Z98.84 - Bariatric surgery status Zinc Today E78.00 - Pure hypercholesterolemia, unspecified, I10 - Essential (primary) hypertension, K76.0 - Fatty (change of) liver, not elsewhere classified, Z98.84 - Bariatric surgery status Vitamin A Today E78.00 - Pure hypercholesterolemia, unspecified, I10 - Essential (primary) hypertension, K76.0 - Fatty (change of) liver, not elsewhere classified, Z98.84 - Bariatric surgery status Coding Level of Care Code Est Pt Level 3 (82341) Diagnoses S/P laparoscopic sleeve gastrectomy Z98.84
[2023-09-23 15:25] VITALS: BP 139/67; PULSE 72; TEMP 36.3; O2SAT 93; BMI 26.7
== END 2023-09-23 15:35 | disposition home or self-care (01) ==
PROVIDERS: PCP Internal Medicine Endocrinology, Diabetes & Metabolism; Visit Provider Physician Assistant Surgical
DX: E66.3 Overweight (principal); Z68.26 Body mass index [BMI] 26.0-26.9, adult; Z90.3 Acquired absence of stomach [part of]; Z98.84 Bariatric surgery status
CPT/HCPCS: 99213

== ENCOUNTER 2023-09-23 15:13 | Outpatient (REF) | payer BC, SELFPAY ==
[2023-09-23 16:12] LABS: MANUAL DIFF FLAG NO
[2023-09-23 17:15] LABS: Basophils Percent Auto 0.3 % (0-2); Eosinophils Absolute Auto 0.2 X10*3/uL (0.0-0.4); Eosinophils Percent Auto 1.7 % (0-4); Hematocrit 42.9 % (37.0-47.0); Hemoglobin 13.9 g/dl (12.0-16.0); Imm Gran Abs Auto 0.02 X10*3/uL (0.00-0.03); Imm Gran Pct Auto 0.2 % (0.0-0.4); Lymphocytes Absolute Auto 3.7 X10*3/uL (1.2-4.9); Lymphocytes Percent Auto 39.8 % (20-40); Mean Corpuscular HGB Conc 32.4 g/dl (31.0-35.0); Mean Corpuscular Hemoglobin 28.3 pg (27.0-33.0); Mean Corpuscular Volume 87.4 fL (80.0-98.0); Mean Platelet Volume 9.8 fL (9.4-12.3); Monocytes Absolute Auto 0.6 X10*3/uL (0.1-1.2); Monocytes Percent Auto 6.6 % (2-11); Neutrophils Absolute Auto 4.8 x10*3/uL (2.0-8.3); Neutrophils Percent Auto 51.4 % (45-73); Platelet Count 319 X10*3/uL (160-400); Red Blood Count 4.91 X10*6/uL (4.20-5.50); Red Cell Distribution Width 13.2 % (11.0-16.0); White Blood Count 9.3 X10*3/uL (4.8-10.8)
[2023-09-23 17:47] LABS: Anion Gap 12 (12-20); Blood Urea Nitrogen 15 mg/dL (9-16); C Reactive Protein < 0.04 mg/dL (< or = 0.50); Calcium 9.5 mg/dL (8.4-10.2); Carbon Dioxide 28 mmol/L (22-29); Chloride 107 mmol/L (96-108); Cholesterol 192 mg/dL (<200); Estimated Glomerular Filt Rate > 60; Glucose Random 85 mg/dL (60-115); HDL Cholesterol 44 mg/dL (>40); Iron 56 mcg/dL (30-160); LDL Cholesterol Calculated 137 mg/dL (<100); Percent Iron Saturation 22 % (15-50); Potassium 4.3 mmol/L (3.3-5.1); Sodium 143 mmol/L (135-145); Total Iron Binding Capacity 259 mcg/dL (228-428); Triglycerides 57 mg/dL (<150); Unsaturated Iron Binding 203 ug/dL
[2023-09-23 18:02] LABS: Ferritin 150 ng/mL (10-250); Insulin 4 uU/mL (2-29); TSH reflex Free T4 0.42 uIU/mL (0.32-4.0); Vitamin D 25-OH Total 39.9 ng/mL (>30)
[2023-09-23 18:11] LABS: Folate 16.6 ng/mL (> or = 4.0); Vitamin B12 1660 pg/mL (200-900)
[2023-09-24 05:22] LABS: Estimated Average Glucose 97 mg/dL
[2023-09-27 01:18] LABS: Zinc 68 mcg/dL (60-130)
[2023-09-28 13:14] LABS: Vitamin B1 18 nmol/L (8-30)
[2023-09-28 17:43] LABS: Vitamin A 43 mcg/dL (38-98)
== END 2023-09-23 15:14 | disposition home or self-care (01) ==
LOC: HO.LAB 15:13
PROVIDERS: PCP Internal Medicine Endocrinology, Diabetes & Metabolism; Visit Provider Physician Assistant Surgical
DX: E66.3 Overweight (principal); Z98.84 Bariatric surgery status; I10 Essential (primary) hypertension; K76.0 Fatty (change of) liver, not elsewhere classified
CPT/HCPCS: 36415; 80048; 80061; 82306; 82607; 82728; 82746; 83036; 83525; 83540; 84425; 84443; 84590; 84630; 85025; 86140

== ENCOUNTER 2023-11-11 08:43 | Outpatient (AMB) | payer BC, SELFPAY ==
--- NOTE | 2023-11-11 08:27 | MHC.OFFVISWM ---
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 Presents for 1 year 7 month post op visit. Weight today is 155.6 pounds, with a BMI of 26.7.? There has been a 133.4 pound weight loss,(initial weight 289 pounds) since starting the program on 01/09/22 reflecting a 46.2% total body weight loss and a weight loss of 97.4 pounds since surgery (operative weight 253 pounds) reflecting a 38.5% TBWL since surgery. She states she feels great. She offers no concerns or complaints. She states that she is very happy with her weight. She wants to maintain at this point. 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 Continues on bariatric fusion MVI, and damien + D. Present meal plan includes: 1 Equate RTD shake, (30 gm pro), 8 am Wrap for lunch w turkey or ham and cheese 2pm, half a cup of fresh fruit such as berries or an apple meal 7 forks protein and 7 forks veg Drinkin oz water ? Exercise routine includes: walking outside, 2-3 x week [facility] Medical History Seizure Steatosis, liver Anxiety On beta jeanette at home History of atrial fibrillation Nausea Asthma Dysphagia ABHIJIT on CPAP Elevated troponin HTN (hypertension) Panic attack Migraines High cholesterol Surgical History H/O gastric sleeve Hx of colonoscopy History of esophagogastroduodenoscopy (EGD) History of myomectomy History of hysterectomy History of appendectomy Family History Mother Atrial fibrillation Father Heart valve problem Son ADHD Daughter ADHD Sister Diabetes High cholesterol Factor 5 Leiden mutation, heterozygous Brother No problems noted. Social History Household Members: Family Housing: House Are you a primary career services officer to a significant other at home: No Do you presently have visiting nurse or other home services: No Alcohol intake: current Patient Tobacco Use Status: Never used Tobacco Second Hand Smoke Exposure: No service: No Current occupational status: employed Telehealth Telehealth Telehealth Platform: Telephone Location of provider rendering services: practice address Location of patient: address on file Patient Identification confirmed using: Name, : Yes Telehealth method: voice only Patient verbally consented to treatment: Yes Patient verbally consented to billing insurance company: Yes Patient informed of any privacy concerns related to visit: Yes Minutes spent on Phone/Video with Pt.: 15 Assessment & Plan Assessment & Plan (1) Overweight (BMI 25.0-29.9): Code(s): E66.3 - Overweight Category: Medical Plan: Patient is very satisfied with her current outcome. She would like to maintain her current weight. She will continue her current meal plan. We discussed increasing her exercise commitment to include walking 3 days per week, tracking her time distance and calories with the [employer] vinod. additionally incorporating yoga and weight training. She states that she would prefer to do this at home on her own schedule and I suggested watching [employer] videos, beginning as weight training for women over 50 as well as yoga for beginning hours. She states that she will begin to incorporate these things. She will return to the office in 2 months with the understanding that she will text me sooner if there are any questions or concerns.
[2023-11-11 08:29] VITALS: BMI 26.7
== END 2023-11-11 08:46 | disposition home or self-care (01) ==
LOC: HO.HBS 08:43
PROVIDERS: PCP Internal Medicine Endocrinology, Diabetes & Metabolism; Visit Provider Physician Assistant Surgical
DX: E66.3 Overweight (principal); Z68.26 Body mass index [BMI] 26.0-26.9, adult
CPT/HCPCS: 99442

== ENCOUNTER → 2023-11-11 08:43 | Outpatient (BNVA) | payer BC, SELFPAY | PROVIDERS: PCP Internal Medicine Endocrinology, Diabetes & Metabolism; Visit Provider Physician Assistant Surgical | DX: E66.3 Overweight (principal); Z98.84 Bariatric surgery status; I10 Essential (primary) hypertension; K76.0 Fatty (change of) liver, not elsewhere classified; E78.00 Pure hypercholesterolemia, unspecified ==

== ENCOUNTER 2023-11-21 14:28 | Outpatient (AMB) | payer BC, SELFPAY ==
[2023-11-21 14:41] VITALS: BP 110/62; PULSE 68; BMI 27.9
--- NOTE | 2023-11-21 14:41 | A.OFFVIS_ITS ---
Vital Signs 11/21/23 14:41 Height 5 ft 4 in Weight 162 lb 11.218 oz BMI 27.9 BP 110/62 Blood Pressure Location Lt brachial Position Sitting Pulse 68 Intake Visit Reasons: 1 yr f/up Bending Frame Operator Required: No Accompanied by: Self / Same As Patient Allergies camphor Adverse Reaction (Intermediate, Verified 09/23/23 15:17) Hives Medication List - Last Reconciled 11/21/23 by Kristian Stover MD albuterol sulfate 90 mcg/actuation 90 mcg inhalation Q4H PRN atorvastatin 80 mg PO BEDTIME brexpiprazole (Rexulti) 2 mg PO DAILY ccnmbrowed-xqnnabrknnfyo-qqfd 50-325-40 mg 1 tab PO DAILY PRN divalproex ER 250 mg PO BEDTIME fluoxetine 10 mg PO DAILY methylphenidate HCl (Ritalin) 10 mg PO DAILY multivitamin 1 tab PO DAILY propranolol 10 mg PO BID 90 days HPI Comments Details: Aura returns for follow-up regarding atrial fibrillation. In the past, she was morbidly obese. She was weighing more than 300 lb. She had 1 episode of atrial fibrillation few years ago, but at that time her weight was quite high. Then she underwent weight loss surgery and lost substantial amount of weight. Seems like more than 100 lb weight loss. Since last seen, she is doing good. No atrial fibrillation or in fact any other issues. She takes Propranolol more for anxiety but that is also covers atrial fibrillation. Overall doing well. [facility] Medical History Seizure Steatosis, liver Anxiety On beta jeanette at home History of atrial fibrillation Nausea Asthma Dysphagia ABHIJIT on CPAP Elevated troponin HTN (hypertension) Panic attack Migraines High cholesterol Surgical History H/O gastric sleeve Hx of colonoscopy History of esophagogastroduodenoscopy (EGD) History of myomectomy History of hysterectomy History of appendectomy Family History Mother Atrial fibrillation Father Heart valve problem Son ADHD Daughter ADHD Sister Diabetes High cholesterol Factor 5 Leiden mutation, heterozygous Brother No problems noted. Social History Household Members: Family Housing: House Are you a primary gericare aide teacher to a significant other at home: No Do you presently have visiting nurse or other home services: No Alcohol intake: current Patient Tobacco Use Status: Never used Tobacco Second Hand Smoke Exposure: No service: No Current occupational status: employed Review of Systems Const Denies chills, Denies fatigue, Denies fever(s), Denies frequent falls, Denies weakness, Denies weight gain and Denies weight loss ENT Denies dizziness Card Denies chest pain, Denies leg edema, Denies lightheadedness, Denies palpitations, Denies dyspnea and Denies dyspnea on exertion Resp Denies cough, Denies dyspnea and Denies dyspnea on exertion GI Denies hematochezia Musc Denies abnormal gait, Denies muscle weakness, Denies numbness, Denies radiating pain into limb and Denies tingling Neuro Denies abnormal gait, Denies dizziness, Denies frequent falls, Denies numbness, Denies tingling and Denies weakness Endo Denies fatigue and Denies palpitations Physical Exam Vital Signs: Last Vital Signs Pulse 68 11/21/23 14:41 BP 110/62 11/21/23 14:41 BMI result Body Mass Index 27.9 Const General: comfortable and no acute distress Orientation/consciousness: patient oriented x3 HEENT Other: Unremarkable Head: Yes normal to inspection Neck Neck: Yes normal visual inspection Chest Chest palpation & inspection: normal inspection of the chest Resp Auscultation: clear to auscultation bilaterally Cardio Palpation: normal PMI Heart sounds: S1 normal heart sound present, S2 normal heart sound present, no gallops, no murmurs and no rubs GI Palpation (GI): Soft to palpation Back/Spine/Pelvis Other: unremarkable Skin General skin exam: no rashes or lesions noted Neuro General: patient oriented x3 Extrem General: Yes normal to inspection Psych Mental Status: mental status grossly normal Office Procedures EKG Details: EKG with sinus rhythm at 68/Min; no significant ST-T changes and otherwise unremarkable. [place]. [id number], Complete Assessment & Plan Assessment & Plan (1) PAF (paroxysmal atrial fibrillation): Code(s): I48.0 - Paroxysmal atrial fibrillation Category: Medical Plan: Only 1 documented episode in the setting of obesity. As she is lost significant amount of weight, recurrences much less likely. No indication for anticoagulation at this time. (2) ABHIJIT on CPAP: Code(s): G47.33 - Obstructive sleep apnea (adult) (pediatric); Z99.89 - Dependence on other enabling machines and devices Category: Medical Plan: She is lost weight but still would like to use CPAP. (3) Morbid obesity: Code(s): E66.01 - Morbid (severe) obesity due to excess calories Category: Medical Plan: Status post weight loss surgery. Has lost more than 100 lb. Lower likelihood of atrial fibrillation recurrence. Medications: Refilled propranolol 10 mg PO BID 180 tabs 3RF 90 days Coding Level of Care Code Est Pt Level 4 (99673) Diagnoses PAF (paroxysmal atrial fibrillation) I48.0 ABHIJIT on CPAP G47.33; Z99.89 Morbid obesity E66.01 CPT Codes EKG - CPT: 27367-Vrfonizikzgtxszqy, Complete ([id number])
== END 2023-11-21 14:56 | disposition home or self-care (01) ==
PROVIDERS: PCP Internal Medicine Endocrinology, Diabetes & Metabolism; Visit Provider Internal Medicine
DX: I48.0 Paroxysmal atrial fibrillation (principal); G47.33 Obstructive sleep apnea (adult) (pediatric); Z99.89 Dependence on other enabling machines and devices; E66.01 Morbid (severe) obesity due to excess calories
CPT/HCPCS: 93010; 99214

== ENCOUNTER → 2023-11-21 14:28 | Outpatient (BNVA) | payer BC, SELFPAY | PROVIDERS: Visit Provider Internal Medicine | DX: I48.0 Paroxysmal atrial fibrillation (principal); G47.33 Obstructive sleep apnea (adult) (pediatric); E66.01 Morbid (severe) obesity due to excess calories; Z68.27 Body mass index [BMI] 27.0-27.9, adult; Z99.89 Dependence on other enabling machines and devices | CPT/HCPCS: 93005 ==

== ENCOUNTER 2024-01-30 09:21 | Outpatient (AMB) | payer BC, SELFPAY ==
--- NOTE | 2024-01-30 08:33 | MHC.OFFVISWM ---
VS Expanded 01/30/24 08:34 Height 5 ft 4 in Weight 157 lb BMI 26.9 Body Fat % 33.5 Body Fat Mass 52.5 Fat Free Mass 104.4 Visceral Fat Rating 10 Body Water % 45.6 Body Water Mass 71.5 Muscle Mass/Score 98.2 Basal Metabolic Rate/Score 1,395 Intake Visit Reasons: (TV) PO LSG 04/04/22 Court Specialist Required: No Allergies camphor Adverse Reaction (Intermediate, Verified 09/23/23 15:17) Hives Medication List - Last Reconciled 01/30/24 by DYANA Greer albuterol sulfate 90 mcg/actuation 90 mcg inhalation Q4H PRN atorvastatin 80 mg PO BEDTIME brexpiprazole (Rexulti) 2 mg PO DAILY vvvyzlpsif-kfhbbxipkmcgz-deos 50-325-40 mg 1 tab PO DAILY PRN divalproex ER 250 mg PO BEDTIME fluoxetine 10 mg PO DAILY methylphenidate HCl (Ritalin) 10 mg PO DAILY multivitamin 1 tab PO DAILY propranolol 10 mg PO BID 90 days HPI Comments Details: This?a?53?yo female who is s/p LSG without hiatal hernia repair on?04/04/22. Presents for 1 year 10 month post op visit. Weight today is 157 pounds, with a BMI of 26.9.? There has been a 132 pound weight loss,(initial weight 289 pounds) since starting the program on 01/09/22 reflecting a 45.6% total body weight loss and a weight loss of 96 pounds since surgery (operative weight 253 pounds) reflecting a 37.9% TBWL since surgery. She states she feels great. She states she continues to be busy with work. Continues on bariatric fusion MVI, and damien + D. Present meal plan includes: 1 Equate RTD shake, (30 gm pro), 8 am Wrap for lunch w turkey or ham and cheese 2pm, half a cup of fresh fruit such as berries or an apple meal 7 forks protein and 7 forks veg Drinkin oz water ? Exercise routine includes: weight training arms and legs. 3-4 days/w [facility] [place] Medical History Seizure Steatosis, liver Anxiety On beta jeaentte at home History of atrial fibrillation Nausea Asthma Dysphagia ABHIJIT on CPAP Elevated troponin HTN (hypertension) Panic attack Migraines High cholesterol Surgical History H/O gastric sleeve Hx of colonoscopy History of esophagogastroduodenoscopy (EGD) History of myomectomy History of hysterectomy History of appendectomy Family History Mother Atrial fibrillation Father Heart valve problem Son ADHD Daughter ADHD Sister Diabetes High cholesterol Factor 5 Leiden mutation, heterozygous Brother No problems noted. Social History Household Members: Family Housing: House Are you a primary neonatal critical care nurse to a significant other at home: No Do you presently have visiting nurse or other home services: No Alcohol intake: current Patient Tobacco Use Status: Never used Tobacco Second Hand Smoke Exposure: No service: No Current occupational status: employed Telehealth Telehealth Telehealth Platform: Telephone Location of provider rendering services: practice address Location of patient: other Patient Identification confirmed using: Name, : Yes Telehealth method: voice only Patient verbally consented to treatment: Yes Patient verbally consented to billing insurance company: Yes Patient informed of any privacy concerns related to visit: Yes Minutes spent on Phone/Video with Pt.: 12 Assessment & Plan Assessment & Plan (1) Overweight (BMI 25.0-29.9): Code(s): E66.3 - Overweight Category: Medical Plan: Overall, patient is doing very well with her meal plan. I did recommend increasing cardio on her weight training days. She has not been doing very much. Suggest weight training times 20 minutes and cardio times 40 minutes or weight training times 25 minutes and cardio times 35 minutes. She will incorporate this within her routine. Plan for follow-up in the office in 2 months
[2024-01-30 08:34] VITALS: BMI 26.9
== END 2024-01-30 09:21 | disposition home or self-care (01) ==
LOC: HO.HBS 09:21
PROVIDERS: PCP Internal Medicine Endocrinology, Diabetes & Metabolism; Visit Provider Physician Assistant Surgical
DX: E66.3 Overweight (principal); Z68.26 Body mass index [BMI] 26.0-26.9, adult
CPT/HCPCS: 98967; 99213; 99442

== ENCOUNTER → 2024-01-30 09:21 | Outpatient (BNVA) | payer BC, SELFPAY | PROVIDERS: PCP Internal Medicine Endocrinology, Diabetes & Metabolism; Visit Provider Physician Assistant Surgical | DX: E66.3 Overweight (principal) ==

== ENCOUNTER 2024-04-02 08:07 | Outpatient (AMB) | payer BC, SELFPAY ==
--- NOTE | 2024-04-02 08:30 | A.OFFVIS_ITS ---
VS Expanded 04/02/24 08:47 BP 138/73 Blood Pressure Location Rt brachial Blood Pressure Position Sitting Pulse 62 Pulse Source Pulse Oximeter Temp 96.7 F L Temperature Source Temporal Artery Scan Pulse Oximetry 97 Oxygen Delivery Method Room Air Height 5 ft 4 in Weight 159 lb 12.8 oz BMI 27.4 Body Fat % 25.6 Body Fat Mass 40.8 Fat Free Mass 118.8 Visceral Fat Rating 6.0 Body Water % 52.8 Body Water Mass 84.2 Muscle Mass/Score 112.8 Basal Metabolic Rate/Score 1,566 Intake Visit Reasons: (OV) PO LSG 04/04/22 Salesperson Shoes Required: No Allergies camphor Adverse Reaction (Intermediate, Verified 04/02/24 08:33) Hives Medication List - Last Reconciled 04/02/24 by DYANA Greer albuterol sulfate 90 mcg/actuation 90 mcg inhalation Q4H PRN atorvastatin 80 mg PO BEDTIME brexpiprazole (Rexulti) 2 mg PO DAILY fqxsicvegp-cumxigvdchzcx-mlvf 50-325-40 mg 1 tab PO DAILY PRN divalproex ER 250 mg PO BEDTIME fluoxetine 10 mg PO DAILY methylphenidate HCl (Ritalin) 10 mg PO DAILY multivitamin 1 tab PO DAILY propranolol 10 mg PO BID 90 days HPI Comments Details: This?a?53?yo female who is s/p LSG without hiatal hernia repair on?04/04/22. Presents for 2 year post op visit. Weight today is 159.8 pounds, with a BMI of 27.4.? There has been a 132 pound weight loss,(initial weight 289 pounds) since starting the program on 01/09/22 reflecting a 45.6% total body weight loss and a weight loss of 96 pounds since surgery (operative weight 253 pounds) reflecting a 37.9% TBWL since surgery. She states she feels great. She states she continues to be busy with work. Continues on bariatric fusion MVI, and damien + D. Present meal plan includes: 1 Equate RTD shake, (30 gm pro), 8 am Wrap for lunch w turkey or ham and cheese 2pm, half a cup of fresh fruit such as berries or an apple meal 7 forks protein and 7 forks veg Drinkin oz water ? Exercise routine includes: none in the last month Any post op complications: none ABHIJIT: improved DM: never HTN: resolved Hyperlipidemia: improved -familial GERD:?0-5 scale ??0 = no symptoms ??1 = symptoms noticeable but not bothersome 2 =symptoms bothersome but not daily ? 3 = symptoms bothersome and daily 4 = symptoms affect daily activities 5 = symptoms are incapacitating, unable to do daily activities ? How bad is the heartburn: 0 ? Heartburn while lying down: 0 ? Heartburn when standing up: 0 ? Heartburn after meals: 0 ? Does heartburn change your diet: 0 ? Does heartburn wake you up from sleep: 0 ? Do you have difficulty swallowin ? Do you have pain with swallowin ? If you take medicine for your reflux, does this affect your daily life: 0 Satisfaction with present condition - satisfied or not satisfied: satisfied [facility] Medical History Seizure Steatosis, liver Anxiety On beta jeanette at home History of atrial fibrillation Nausea Asthma Dysphagia ABHIJIT on CPAP Elevated troponin HTN (hypertension) Panic attack Migraines High cholesterol Surgical History H/O gastric sleeve Hx of colonoscopy History of esophagogastroduodenoscopy (EGD) History of myomectomy History of hysterectomy History of appendectomy Family History Mother Atrial fibrillation Father Heart valve problem Son ADHD Daughter ADHD Sister Diabetes High cholesterol Factor 5 Leiden mutation, heterozygous Brother No problems noted. Social History Household Members: Family Housing: House Are you a primary caregiver services home to a significant other at home: No Do you presently have visiting nurse or other home services: No Alcohol intake: current Patient Tobacco Use Status: Never used Tobacco Second Hand Smoke Exposure: No service: No Current occupational status: employed Physical Exam Const General: cooperative and no acute distress Orientation/consciousness: patient oriented x3 Resp Effort & Inspection: normal respiratory effort Auscultation: clear to auscultation bilaterally Cardio Rate: regular rate Rhythm: regular rhythm GI Inspection: Yes normal to inspection Palpation (GI): Soft to palpation and no masses Neuro General: patient oriented x3 Assessment & Plan Assessment & Plan (1) S/P laparoscopic sleeve gastrectomy: Code(s): Z98.84 - Bariatric surgery status Category: Surgical Plan: Overall, doing very well. She is experiencing some emotional trauma at home with her sick dog and mother who was just diagnosed with lung cancer. She was encouraged to return to the gym to reincorporate exercise into her regimen. We will have her return to the office in 6 months per her request. I did encourage her to continue to text with any questions or concerns. We will check yearly labs. With regard to her sleep apnea, I did suggest that she get retested. She did state that she will consider this. She has slept without her CPAP machine and had no adverse effects. Orders: Orders Insulin Today E66.3 - Overweight, E78.00 - Pure hypercholesterolemia, unspecified, I10 - Essential (primary) hypertension, K76.0 - Fatty (change of) liver, not elsewhere classified, Z98.84 - Bariatric surgery status Hemoglobin A1c Today E66.3 - Overweight, E78.00 - Pure hypercholesterolemia, unspecified, I10 - Essential (primary) hypertension, K76.0 - Fatty (change of) liver, not elsewhere classified, Z98.84 - Bariatric surgery status Complete Blood Count Auto Diff Today E66.3 - Overweight, E78.00 - Pure hypercholesterolemia, unspecified, I10 - Essential (primary) hypertension, K76.0 - Fatty (change of) liver, not elsewhere classified, Z98.84 - Bariatric surgery status Zinc Today E66.3 - Overweight, E78.00 - Pure hypercholesterolemia, unspecified, I10 - Essential (primary) hypertension, K76.0 - Fatty (change of) liver, not elsewhere classified, Z98.84 - Bariatric surgery status Basic Metabolic Panel Today E66.3 - Overweight, E78.00 - Pure hyp ercholesterolemia, unspecified, I10 - Essential (primary) hypertension, K76.0 - Fatty (change of) liver, not elsewhere classified, Z98.84 - Bariatric surgery status Lipid Panel Today E66.3 - Overweight, E78.00 - Pure hypercholesterolemia, unspecified, I10 - Essential (primary) hypertension, K76.0 - Fatty (change of) liver, not elsewhere classified, Z98.84 - Bariatric surgery status IRON PROFILE Today E66.3 - Overweight, E78.00 - Pure hypercholesterolemia, unspecified, I10 - Essential (primary) hypertension, K76.0 - Fatty (change of) liver, not elsewhere classified, Z98.84 - Bariatric surgery status Vitamin B12 and Folate Today E66.3 - Overweight, E78.00 - Pure hypercholesterolemia, unspecified, I10 - Essential (primary) hypertension, K76.0 - Fatty (change of) liver, not elsewhere classified, Z98.84 - Bariatric surgery status C Reactive Protein Today E66.3 - Overweight, E78.00 - Pure hypercholesterolemia, unspecified, I10 - Essential (primary) hypertension, K76.0 - Fatty (change of) liver, not elsewhere classified, Z98.84 - Bariatric surgery status Vitamin B1 Today E66.3 - Overweight, E78.00 - Pure hypercholesterolemia, unspecified, I10 - Essential (primary) hypertension, K76.0 - Fatty (change of) liver, not elsewhere classified, Z98.84 - Bariatric surgery status Vitamin A Today E66.3 - Overweight, E78.00 - Pure hypercholesterolemia, unspecified, I10 - Essential (primary) hypertension, K76.0 - Fatty (change of) liver, not elsewhere classified, Z98.84 - Bariatric surgery status TSH reflex Free T4 Today E66.3 - Overweight, E78.00 - Pure hypercholesterolemia, unspecified, I10 - Essential (primary) hypertension, K76.0 - Fatty (change of) liver, not elsewhere classified, Z98.84 - Bariatric surgery status Ferritin Today E66.3 - Overweight, E78.00 - Pure hypercholesterolemia, unspecified, I10 - Essential (primary) hypertension, K76.0 - Fatty (change of) liver, not elsewhere classified, Z98.84 - Bariatric surgery status Vitamin D 25-OH Total Today E66.3 - Overweight, E78.00 - Pure hypercholesterolemia, unspecified, I10 - Essential (primary) hypertension, K76.0 - Fatty (change of) liver, not elsewhere classified, Z98.84 - Bariatric surgery status
[2024-04-02 08:47] VITALS: BP 138/73; PULSE 62; TEMP 35.9; O2SAT 97; BMI 27.4
== END 2024-04-02 09:10 | disposition home or self-care (01) ==
PROVIDERS: PCP Internal Medicine Endocrinology, Diabetes & Metabolism; Visit Provider Physician Assistant Surgical
DX: E66.3 Overweight (principal); Z68.27 Body mass index [BMI] 27.0-27.9, adult; Z90.3 Acquired absence of stomach [part of]; Z98.84 Bariatric surgery status
CPT/HCPCS: 99214

== ENCOUNTER → 2024-04-02 08:07 | Outpatient (BNVA) | payer BC, SELFPAY | PROVIDERS: PCP Internal Medicine Endocrinology, Diabetes & Metabolism; Visit Provider Physician Assistant Surgical ==

== ENCOUNTER 2024-04-03 06:44 | Outpatient (REF) | payer BC, SELFPAY ==
[2024-04-03 07:03] LABS: MANUAL DIFF FLAG NO
[2024-04-03 07:07] LABS: Hemoglobin 14.3 g/dl (12.0-16.0); Red Blood Count 4.98 X10*6/uL (4.20-5.50)
[2024-04-03 07:08] LABS: Basophils Percent Auto 0.7 % (0-2); Eosinophils Absolute Auto 0.2 X10*3/uL (0.0-0.4); Eosinophils Percent Auto 2.9 % (0-4); Hematocrit 42.8 % (37.0-47.0); Imm Gran Abs Auto 0.01 X10*3/uL (0.00-0.03); Imm Gran Pct Auto 0.2 % (0.0-0.4); Lymphocytes Absolute Auto 2.9 X10*3/uL (1.2-4.9); Lymphocytes Percent Auto 48.2 % (20-40); Mean Corpuscular HGB Conc 33.4 g/dl (31.0-35.0); Mean Corpuscular Hemoglobin 28.7 pg (27.0-33.0); Mean Corpuscular Volume 85.9 fL (80.0-98.0); Mean Platelet Volume 9.1 fL (9.4-12.3); Monocytes Absolute Auto 0.5 X10*3/uL (0.1-1.2); Monocytes Percent Auto 8.6 % (2-11); Neutrophils Absolute Auto 2.4 x10*3/uL (2.0-8.3); Neutrophils Percent Auto 39.4 % (45-73); Platelet Count 262 X10*3/uL (160-400); Red Cell Distribution Width 13.8 % (11.0-16.0)
[2024-04-03 07:25] LABS: Estimated Average Glucose 103 mg/dL; Hemoglobin A1c % 5.2 % (<6.0)
[2024-04-03 07:33] LABS: Anion Gap 10 (12-20); Blood Urea Nitrogen 12 mg/dL (9-16); C Reactive Protein < 0.04 mg/dL (< or = 0.50); Calcium 9.9 mg/dL (8.4-10.2); Carbon Dioxide 30 mmol/L (22-29); Chloride 107 mmol/L (96-108); Cholesterol 179 mg/dL (<200); Estimated Glomerular Filt Rate > 60; Glucose Random 99 mg/dL (60-115); HDL Cholesterol 50 mg/dL (>40); Iron 68 mcg/dL (30-160); LDL Cholesterol Calculated 119 mg/dL (<100); Percent Iron Saturation 25 % (15-50); Potassium 4.3 mmol/L (3.3-5.1); Sodium 143 mmol/L (135-145); Total Iron Binding Capacity 268 mcg/dL (228-428); Triglycerides 53 mg/dL (<150); Unsaturated Iron Binding 200 ug/dL
[2024-04-03 07:49] LABS: Ferritin 152 ng/mL (10-250); Insulin 8 uU/mL (2-29); TSH reflex Free T4 0.74 uIU/mL (0.32-4.0); Vitamin D 25-OH Total 32.9 ng/mL (>30)
[2024-04-03 08:01] LABS: Folate 14.3 ng/mL (> or = 4.0); Vitamin B12 1185 pg/mL (200-900)
[2024-04-07 05:08] LABS: Zinc 77 mcg/dL (60-130)
[2024-04-08 18:59] LABS: Vitamin A 65 mcg/dL (38-98)
[2024-04-11 10:09] LABS: Vitamin B1 33 nmol/L (8-30)
== END 2024-04-03 06:45 | disposition home or self-care (01) ==
LOC: HO.LAB 06:44
PROVIDERS: PCP Internal Medicine Endocrinology, Diabetes & Metabolism; Visit Provider Physician Assistant Surgical
DX: E66.3 Overweight (principal); I10 Essential (primary) hypertension; K76.0 Fatty (change of) liver, not elsewhere classified; E78.00 Pure hypercholesterolemia, unspecified; Z98.84 Bariatric surgery status; Z13.1 Encounter for screening for diabetes mellitus
CPT/HCPCS: 36415; 80048; 80061; 82306; 82607; 82728; 82746; 83036; 83525; 83540; 84425; 84443; 84590; 84630; 85025; 86140

== ENCOUNTER 2025-01-12 14:05 | Outpatient (AMB) | payer BC, SELFPAY ==
--- NOTE | 2025-01-12 14:18 | MHC.OFFVIS ---
Vital Signs 01/12/25 14:20 Height 5 ft 4 in Weight 190 lb 0.615 oz BMI 32.6 BP 132/62 Blood Pressure Location Lt brachial Position Sitting Pulse 68 Pulse Source Monitor Intake Visit Reasons: Follow up Assistant Commissioner Required: No Accompanied by: Self / Same As Patient Allergies camphor Adverse Reaction (Intermediate, Verified 04/02/24 08:33) Hives Medication List - Last Reconciled 01/12/25 by Kristian Stover MD albuterol sulfate 90 mcg/actuation 90 mcg inhalation Q4H PRN atorvastatin 80 mg PO BEDTIME brexpiprazole (Rexulti) 2 mg PO DAILY hiauppozmn-ekyrcirnstzst-ohys 50-325-40 mg 1 tab PO DAILY PRN divalproex ER 250 mg PO BEDTIME fluoxetine 10 mg PO DAILY methylphenidate HCl (Ritalin) 10 mg PO DAILY multivitamin 1 tab PO DAILY propranolol 10 mg PO BID HPI Comments Details: Aura returns for follow-up regarding atrial fibrillation. In the past, she was morbidly obese. She was weighing more than 300 lb. She had 1 episode of atrial fibrillation few years ago, but at that time her weight was quite high. Then she underwent weight loss surgery and lost substantial amount of weight, but has gained some weight back. Since last seen, she states she is generally doing fine. No new concerns. No angina or shortness of breath or palpitations. She takes Propranolol more for anxiety but that can also possibly help with atrial fibrillation. [facility] Medical History Seizure Steatosis, liver Anxiety On beta jeanette at home History of atrial fibrillation Nausea Asthma Dysphagia ABHIJIT on CPAP Elevated troponin HTN (hypertension) Panic attack Migraines High cholesterol Surgical History H/O gastric sleeve Hx of colonoscopy History of esophagogastroduodenoscopy (EGD) History of myomectomy History of hysterectomy History of appendectomy Family History Mother Atrial fibrillation Father Heart valve problem Son ADHD Daughter ADHD Sister Diabetes High cholesterol Factor 5 Leiden mutation, heterozygous Brother No problems noted. Social History Household Members: Family Housing: House Are you a primary medicare sales executive to a significant other at home: No Do you presently have visiting nurse or other home services: No Alcohol intake: current Patient Tobacco Use Status: Never used Tobacco Second Hand Smoke Exposure: No service: No Current occupational status: employed Review of Systems Const Denies chills, Denies fatigue, Denies fever(s), Denies frequent falls, Denies weakness, Denies weight gain and Denies weight loss ENT Denies dizziness Card Denies chest pain, Denies leg edema, Denies lightheadedness, Denies palpitations, Denies dyspnea and Denies dyspnea on exertion Resp Denies cough, Denies dyspnea and Denies dyspnea on exertion GI Denies hematochezia Musc Denies abnormal gait, Denies muscle weakness, Denies numbness, Denies radiating pain into limb and Denies tingling Neuro Denies abnormal gait, Denies dizziness, Denies frequent falls, Denies numbness, Denies tingling and Denies weakness Endo Denies fatigue and Denies palpitations Physical Exam Vital Signs: Last Vital Signs Pulse 68 01/12/25 14:20 BP 132/62 01/12/25 14:20 BMI result Body Mass Index 32.6 Const General: comfortable and no acute distress Orientation/consciousness: patient oriented x3 HEENT Other: Unremarkable Head: Yes normal to inspection Neck Neck: Yes normal visual inspection Chest Chest palpation & inspection: normal inspection of the chest Resp Auscultation: clear to auscultation bilaterally Cardio Palpation: normal PMI Heart sounds: S1 normal heart sound present, S2 normal heart sound present, no gallops, no murmurs and no rubs GI Palpation (GI): Soft to palpation Back/Spine/Pelvis Other: unremarkable Skin General skin exam: no rashes or lesions noted Neuro General: patient oriented x3 Extrem General: Yes normal to inspection Psych Mental Status: mental status grossly normal Office Procedures EKG Details: EKG with underlying sinus rhythm at 68/Min; no ischemic changes; [place]. [id number], Complete Assessment & Plan Assessment & Plan (1) PAF (paroxysmal atrial fibrillation): Code(s): I48.0 - Paroxysmal atrial fibrillation Category: Medical Plan: Only 1 documented episode in the setting of obesity. As she is lost significant amount of weight, recurrences much less likely. No indication for anticoagulation at this time. (2) Morbid obesity: Code(s): E66.01 - Morbid (severe) obesity due to excess calories Category: Medical Plan: Status post weight loss surgery. She did lose a lot of weight but gaining some back. Advised her that weight gain may provoke atrial fibrillation. Coding Level of Care Code Procedure Only Diagnoses PAF (paroxysmal atrial fibrillation) I48.0 Morbid obesity E66.01 CPT Codes EKG - CPT: 64098-Dilavfzuwlqzcflfo, Complete ([id number])
[2025-01-12 14:20] VITALS: BP 132/62; PULSE 68; BMI 32.6
--- OUTSIDE RECORDS SUMMARY | 2025-01-12 15:18 | XMS_ITS | Continuity of Care Document ---
Author Organization [facility] [address] [place] [address] Phone [phone] Problems Active Problems Provider Date Essential hypertension Susanna Wilkes Onset: 04/11/2022 Dyslipidemia Jennifer Toussaint M.D. Ons et: 04/11/2022 Obesity Jennifer Toussaint M.D. Ons et: 04/11/2022 Osteoarthritis Jennifer Toussaint M.D. Ons et: 04/11/2022 Degeneration of lumbar inter vertebral disc Jennifer Toussaint M.D. Onset: 04/11/2022 Gastroesophageal reflux disease Jennifer Cat M.D. Onset: 04/11/2022 Anxiety Jennifer Toussaint M.D. Ons et: 04/11/2022 Polyp of colon Jennifer Toussaint M.D. Ons et: 04/11/2022 Prediabetes Jennifer Toussaint M.D. Ons et: 04/11/2022 Paroxysmal atrial fibrillation Jennifer negro M.D. Onset: 04/11/2022 Generalized anxiety disorder Jennifer patel M.D. Onset: 03/21/2023 Major depression in remission Jennifer ngo M.D. Onset: 03/21/2023 History of diverticulitis Jennifer Toussaint M.D. Onset: 03/21/2023 Mild cognitive disorder Jennifer Toussaint M.D. 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 01/03/2024 [id number] Tablets 1 every 6 hours x 10 days 40tasukhi Toussaint M.D. 01/03/2024 Divalproex Sodium XC766vy Tablets ER 24HR 1 by mouth once a day Jennifer Toussaint M.D. Butalbital/Acetaminophe n/Eapxwusq34-421-37zn Capsules 1 q 6 hrs prn Jennifer Toussaint M.D. Atorvastatin Hbvytbf56lz Tablets Take 1 Tablet By Mouth Once Daily as Directed 90tabs Jennifer Toussaint M.D. Propranolol EUG62yx Tablets Take 1 Tablet By Mouth Twice A Day Kristian Stover MD Albuterol Sulfate KTI553(90Base) mcg/Act Aerosol Take 2 Puffs Every 4 Hours as Needed Jennifer Toussaint M.D. Calcium Citrate Chewy Gkpj192-43.5mg-mcg Chewtabs 1 qd Jennifer Toussaint M.D. Bariatric FusionChewtabs 1 qd Jennifer Toussaint M.D. Methylphenidate HCL5mg Tablets Take 1 Tablet By Mouth Twice A Day Unknown Kbrrliv7xv Tablets 1 qd Unknown 0 Fluoxetine HCL (PMDD)20mg Tablets 1 qd Unknown 0 Vital Signs Date Vital Result Comment 03/25/2024 9:00am BP Systolic 110 mmHg BP Diastolic 80 mmHg Heart Rate 63 /min Height 63 inches 5'3 Weight 164.12 lb BMI (Body Mass Index) 29.1 kg/m2 Results Test Acquired Date Facility Test Result H/L Range Note Comprehensive Metabolic Panl 08/15/2022 [facility] Glucose 91 mg/dL (70-99) BUN 12 mg/dL (6-20) Creatinine 0.6 mg/dL (0.5-1.0 ) Sodium 142 mmol/L (133-145 ) Potassium 4.6 mmol/L (3.6-5.2 ) Chloride 102 mmol/L (98-107) Bicarbonate 28 mmol/L (22-29) Anion Gap 12 (4-17) Albumin 4.3 GM/DL (3.4-4.8 ) Calcium 10.2 mg/dL (8.6-10. 5) Bilirubin,Total 0.5 mg/dL (0-1.2 ) Total Protein 6.6 GM/DL (6.2-8.2 ) Ag Ratio 1.9 Ast 15 U/L (0-32) Alk Phos 94 U/L (35-104) Alt 22 U/L (0-33) Estimated GFR Creatinine 109 ML/MIN/1. 73M2 1 Lipid Panel 08/15/2022 [facility] Cholesterol, Total 169 mg/dL (<200) Triglyceride 128 mg/dL (<150) HDL Chol 34 mg/dL Low (>39) LDL Cholesterol , Calculated 109 mg/dL (0-130) Non HDL Cholesterol (Calc) 135 mg/dL (<160) Complete Abc With Diff 08/15/2022 [facility] WBC 9.6 K/MM3 (4.0-11. 0) RBC 5.15 M/MM3 (4.20-5. 40) HGB 13.8 GM/DL (11.7-15 .5) HCT 47.5 % High (35.7-45 .8) MCV 92.2 FL (80.0-10 0.0) MCH 26.8 pg Low (27.0-34 .0) MCHC 29.1 g/dL Low (33.0-37 .0) PLT 320 K/MM3 (150-460 ) RDW-SD 52.5 FL High (<47.0) MPV 10.6 FL (9.4-12. 4) Automated NRBC 0.0 #/100WBC' S Abs. NRBC 0.0 K/MM3 Neut # 6.0 K/MM3 (1.3-7.0 ) Lymph # 2.5 K/MM3 (0.8-3.1 ) [place]# 0.9 K/MM3 (0.4-0.9 ) Eo # 0.1 K/MM3 (0.0-0.4 ) Baso # 0.0 K/MM3 (0.0-0.1 ) Abs. Imm Gran 0.0 K/MM3 Neut 62.9 % (44-76) Lymph 26.0 % (15-43) Monocyte 9.3 % (4.5-10. 5) Eo 1.3 % (0-6) Baso 0.3 % (0-2) Imm Gran 0.2 % Hemoglobin A1c 08/15/2022 [facility] Hemoglobin A1c 5.1 % (4.0-5.6 ) 2 TSH With Reflex To FT4 08/15/2022 [facility] TSH With Reflex To FT4 0.61 uIU/mL (0.4-4.2 ) 25Oh Vitamin D 08/15/2022 [facility] 25Oh Vitamin D 39.2 NG/ML (20-50) Vitamin B12 08/15/2022 [facility] Vitamin B12 1500 pg/mL High (232-124 5) Ferritin 08/15/2022 [facility] Ferritin 182 NG/ML (14-283) 1 Creatinine based est imated glomerular filtration (eGFR) in adults is calculated using the National Kidney Foundation recommended 2020 CKD-EPI equation. Estimates GFR from serum creatinine, age and sex. 2 MONITORING: In known diabetic patients, hemoglobin A1c targets should be discussed with health care provider. DIAGNOSTIC USE: The [place] Diabetes Association (ADA) and the World Health Organization (WHO) recommend the use of HbA1c to diagnose diabetes using a threshold of 6.5%. Patients who have an HbA1c between 5.7% and 6.4% are considered at increased risk for developing diabetes in the future. CAUTION: Falsely low HbA1c results may be observed in patients with hemolytic anemia, homozygous forms of abnormal hemoglobin (e.g. SS, CC, SC), , recent blood loss or hemoglobin F greater than 7%. Fructosamine may be used as an alternate test in these cases. REFERENCE: ADA: Standards of Medical Care in Diabetes 2020, The Journal of Clinical and Applied Research and Education Volume 43, Supplement 1 Procedures Date Code Description Status 08/15/2022 59278 Collection Of Venous Blood B y Venipuncture Completed Medical Devices Description No Information Available Encounters Type Date Location Provider Dx Diagnosis Office Visit 03/25/2024 9:00a Main Office Jennifer Toussaint M.D. F41.1 Generalized anxiety disorder E66.9 Obesity, unspecified G43.009 Migraine w/o aura, n ot intractable, w/o status migrainosus G47.33 Obstructive sleep ap isis (adult) (pediatric) F33.40 Major depressive dis order, recurrent, in remission, unsp E78.00 Pure hypercholestero lemia, unspecified I10 Essential (primary) hypertension Z98.[address] atus E04.1 Nontoxic single thyr oid nodule Z68.29 Body mass index [BMI ] 29.0-29.9, adult Assessments Date Code Description Provider 03/25/2024 F41.1 Generalized anxiety disorder Jennifer Toussaint M.D. 03/25/2024 E66.9 Obesity, unspecified Rodo Toussaint M.D. 03/25/2024 G43.009 Migraine without aura, not intractable, without status migrainosus Jennifer Toussaint M.D. 03/25/2024 G47.33 Obstructive slee p apnea (adult) (pediatric) Jennifer Toussaint M.D. 03/25/2024 F33.40 Major depressive disorder, recurrent, in remission, unspecified Jennifer Toussaint M.D. 03/25/2024 E78.00 Pure hypercholes terolemia, unspecified Jennifer Toussaint M.D. 03/25/2024 I10 Essential (primary) hyperten chavo Jennifer Toussaint M.D. 03/25/2024 Z98.84 Bariatric surgery status Nellie Toussaint M.D. 03/25/2024 E04.1 Nontoxic single thyroid nodu le Jennifer Toussaint M.D. 03/25/2024 Z68.29 Body mass index [BMI] 29.0-29.9, adult Jennifer Toussaint M.D. Plan of Treatment Future Appointment(s):* 01/20/2025 1:30 pm - Jennifer Toussaint M.D. at Main Office 03/25/2024 - Jennifer Toussaint M.D.* F41.1 Generalized anxiety disorder * E66.9 Obesity, unspecified * G43.009 Migraine without aura, not intractable, without status migrainosus * G47.33 Obstructive sleep apnea (adult) (pediatric) * F33.40 Major depressive disorder, recurrent, in remission, unspecified * E78.00 Pure hypercholesterolemia, unspecified * I10 Essential (primary) hypertension * Z98.84 Bariatric surgery status * E04.1 Nontoxic single thyroid nodule * Z68.29 Body mass index [BMI] 29.0-29.9, adult Functional Status Description No Information Available Mental Status Description No Information Available Referrals Refer to Dr Reason for Referral Status Appt Srikanth e [facility] RIGHT LEG WEAKNESS Closed 04/29/2023 [address] [place] [address] [phone] [facility] Ash Worker FOLLOW UP DIVERTICUL ITIS Closed 02/28/2023 [address] [facility] [address], [place] [id number] [phone] Anshu Beckwith. PHD NEUROCOGNITIVE T ESTING COGNITIVE IMPAIRMENT X 9 MONTHS Closed [address] [place] [address] [phone]
== END 2025-01-12 14:32 | disposition home or self-care (01) ==
LOC: HO.HCS 14:06
PROVIDERS: PCP Internal Medicine Endocrinology, Diabetes & Metabolism; Visit Provider Internal Medicine
DX: I48.0 Paroxysmal atrial fibrillation (principal); E66.01 Morbid (severe) obesity due to excess calories
CPT/HCPCS: 93010; 99213

== ENCOUNTER → 2025-01-12 14:05 | Outpatient (BNVA) | payer BC, SELFPAY | PROVIDERS: PCP Internal Medicine Endocrinology, Diabetes & Metabolism; Visit Provider Internal Medicine | DX: I48.0 Paroxysmal atrial fibrillation (principal) | CPT/HCPCS: 93005 ==

== ENCOUNTER 2025-05-17 09:28 | Outpatient (AMB) | payer BC, SELFPAY ==
--- NOTE | 2025-05-17 09:30 | MHC.OFFVIS ---
Intake Visit Reasons: 6m migraine Allergies camphor Adverse Reaction (Intermediate, Verified 05/17/25 09:31) Hives Medication List - Last Reconciled 05/17/25 by Eileen Morales CNP albuterol sulfate 90 mcg/actuation 90 mcg inhalation Q4H PRN atorvastatin 80 mg PO BEDTIME brexpiprazole (Rexulti) 2 mg PO DAILY iflltjlguk-gcpqqhiygxizf-xoza 50-325-40 mg 2 tabs PO DAILY PRN divalproex ER 250 mg PO BEDTIME 90 days fluoxetine 10 mg PO DAILY methylphenidate HCl (Ritalin) 10 mg PO DAILY multivitamin 1 tab PO DAILY propranolol 10 mg PO BID HPI Comments Details: 54-year-old woman with obesity, anxiety/panic disorder, COPD, ABHIJIT, back pain s/p lumbar surgery, and migraine headaches. She was doing okay. Migraines were happening about 3-4x/month and were relieved with butalbital 2 tablets. She was under some stress. Her mother passed in 11/2024 and her father was undergoing treatment for liver cancer. Sleep was so-so. [facility] Medical History Seizure Steatosis, liver Anxiety On beta jeanette at home History of atrial fibrillation Nausea Asthma Dysphagia ABHIJIT on CPAP Elevated troponin HTN (hypertension) Panic attack Migraines High cholesterol Surgical History H/O gastric sleeve Hx of colonoscopy History of esophagogastroduodenoscopy (EGD) History of myomectomy History of hysterectomy History of appendectomy Family History Mother Atrial fibrillation Father Heart valve problem Son ADHD Daughter ADHD Sister Diabetes High cholesterol Factor 5 Leiden mutation, heterozygous Brother No problems noted. Social History Household Members: Family Housing: House Are you a primary animal care technician to a significant other at home: No Do you presently have visiting nurse or other home services: No Alcohol intake: current Patient Tobacco Use Status: Never used Tobacco Second Hand Smoke Exposure: No service: No Current occupational status: employed Review of Systems Const Denies chills, Denies daytime sleepiness, Reports difficulty sleeping, Denies fatigue, Denies fever(s), Denies frequent falls, Reports headache(s), Denies increased appetite, Denies poor appetite, Denies snoring, Denies weakness, Denies weight gain and Denies weight loss Eyes Denies loss of vision ENT Denies vertigo, Denies dizziness and Reports headache(s) Card Denies chest pain at rest, Denies chest pain with activity, Denies syncope, Denies leg edema and Denies palpitations Resp Denies snoring GI Denies constipation, Denies heartburn, Denies diarrhea and Denies nausea Denies urinary frequency, Denies urinary incontinence and Denies urinary urgency Musc Denies abnormal gait, Denies numbness and Denies tingling Skin/Breast Denies dry skin and Denies rash Neuro Denies abnormal gait, Denies vertigo, Denies dizziness, Denies syncope, Denies frequent falls, Reports headache(s), Denies lack of coordination, Denies loss of vision, Denies memory loss, Denies numbness, Denies restless legs, Denies seizure-like activity, Denies tingling, Denies paresthesias, Denies tremor(s) and Denies weakness Psych Reports anxiety, Reports depression, Denies auditory hallucinations, Denies memory loss, Denies visual hallucinations and Denies suicidal ideation Endo Denies fatigue and Denies palpitations Physical Exam Const Other: General Appearance:? normal, in no acute distress. Skin:? no rashes, no significant birthmarks. Heart:? S1, S2 normal, no murmurs. Lungs:? clear anteriorly and posteriorly. Extremities:? no edema. Psych:? alert, oriented, cognitive function intact, cooperative with exam. Neuro Other: Mental Status:?Normal attention, orientation, memory and affect.? Cranial Nerves:?Pupils are equal, round and reactive to light. External occular muscles are intact. Visual mccallum are full. Face is symmetrical. Facial sensations are normal. Tongue is midline. Palate elevates symmetrically. Shoulder shrugging is normal. Hearing to bedside conversation is normal. Sensory Exam:?....? Coordination:?No ataxia,?no titubation.? Gait Exam: Within normal limits. Extrapyramidal System:?No tremor, rigidity with normal facial expressions.? Pronator Drift:?Not present.? Involuntary Movements:?No tremors seen.? Speech:?Normal.? Assessment & Plan Assessment & Plan (1) Migraine without aura: Code(s): G43.009 - Migraine without aura, not intractable, without status migrainosus Category: Medical Qualifiers: Status migrainosus presence: without status migrainosus Intractability: not intractable Qualified Code(s): G43.009 - Migraine without aura, not intractable, without status migrainosus Plan: Continue Depakote ER 250mg 1 tablet at bedtime. Continue vsgevtcvkm-ONGV-qmna 50-325-40mg 2 tablet as needed for headache #10 for 30 days Plan Meds tried: topamax, sumatriptan, effexor, propranalol Medications: Changed From divalproex ER 250 mg PO BEDTIME To divalproex ER 250 mg PO BEDTIME 90 tabs 1RF 90 days From iwhsyqvttq-cerzxiuxgttuc-vzqc 50-325-40 mg 2 tabs PO DAILY PRN Migraine Headache To qqwvrsxgfl-lclmjxcmxbpsu-jswl 50-325-40 mg 2 tabs PO DAILY PRN 10 tabs 5RF Migraine Headache 30 days Coding Level of Care Code Est Pt Level 4 (76546) Diagnoses Migraine without aura and without status migrainosus, not intractable G43.009 Status migrainosus presence: without status migrainosus Intractability: not intractable
--- OUTSIDE RECORDS SUMMARY | 2025-05-17 10:42 | XMS_ITS | Continuity of Care Document ---
Author Organization [facility] [address] [place] [address] Phone [phone] Problems Active Problems Provider Date Essential hypertension [...] 03/21/2023 Lumbar radiculopathy Keira Wilkes Onset: 03/21/2023 Multinodular goiter Jennifer Toussaint M.D. 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 01/03/2024 Qiorgjzjewigk821jc Tablets 1 every 6 hours x 10 days 40tabs Jennifer Toussaint M.D. 01/03/2024 Divalproex Sodium MY415fi Tablets ER 24HR 1 by mouth once a day Jennifer Toussaint M.D. Butalbital/Acetaminophe n/Kuneqjev74-455-89qv Capsules 1 q 6 hrs prn Jennifer Toussaint M.D. Atorvastatin Glguirs26jl Tablets Take 1 Tablet By Mouth Once Daily as Directed 90tabs Jennifer Toussaint M.D. Propranolol NIN73lw Tablets Take 1 Tablet By Mouth Twice A Day Kristian Stover MD Albuterol Sulfate RNA565(90Base) mcg/Act Aerosol Take 2 Puffs Every 4 Hours as Needed Jennifer Toussaint M.D. Calcium Citrate Chewy Vnzz538-14.5mg-mcg Chewtabs 1 qd Jennifer Toussaint M.D. Bariatric FusionChewtabs 1 qd Jennifer Toussaint M.D. Methylphenidate HCL5mg Tablets Take 1 Tablet By Mouth Twice A Day Unknown Mrxyery4ls Tablets 1 qd Unknown 0 Fluoxetine HCL (PMDD)20mg Tablets 1 qd Unknown 0 Vital Signs Date Vital Result Comment 01/20/2025 2:23pm BP Systolic 130 mmHg BP Diastolic 76 mmHg Results Test Acquired Date Facility Test Result H/L Range Note Comprehensive Metabolic Panl 08/15/2022 [facility] Glucose 91 mg/dL (70-99) BUN [...] 109 ML/MIN/1. 73M2 1 Lipid Panel 08/15/2022 [facility] Cholesterol, Total 169 mg/dL (<200) Triglyceride 128 mg/dL (<150) HDL Chol 34 mg/dL Low (>39) LDL Cholesterol , Calculated 109 mg/dL (0-130) Non HDL Cholesterol (Calc) 135 mg/dL (<160) Complete Abc With Diff 08/15/2022 [facility] WBC 9.6 K/MM3 (4.0-11. 0) [...] ) Lymph # 2.5 K/MM3 (0.8-3.1 ) [place]# 0.9 K/MM3 (0.4-0.9 ) Eo # 0.1 K/MM3 (0.0-0.4 ) Baso # 0.0 K/MM3 (0.0-0.1 ) Abs. Imm Gran 0.0 K/MM3 Neut 62.9 % (44-76) Lymph 26.0 % (15-43) Monocyte 9.3 % (4.5-10. 5) Eo 1.3 % (0-6) Baso 0.3 % (0-2) Imm Gran 0.2 % Hemoglobin A1c 08/15/2022 [facility] Hemoglobin A1c 5.1 % (4.0-5.6 ) 2 TSH With Reflex To FT4 08/15/2022 [facility] TSH With Reflex To FT4 0.61 uIU/mL (0.4-4.2 ) 25Oh Vitamin D 08/15/2022 [facility] 25Oh Vitamin D 39.2 NG/ML (20-50) Vitamin B12 08/15/2022 [facility] Vitamin B12 1500 pg/mL High (232-124 5) Ferritin 08/15/2022 [facility] Ferritin 182 NG/ML (14-283) 1 Creatinine based est imated glomerular filtration (eGFR) in adults is calculated using the National Kidney Foundation recommended 2020 CKD-EPI equation. Estimates GFR from serum creatinine, age and sex. 2 MONITORING: In known diabetic patients, hemoglobin A1c targets should be discussed with health care provider. DIAGNOSTIC USE: The [place] Diabetes Association (ADA) and the World Health [...] 1 Procedures Date Code Description Status 08/15/2022 82936 Collection Of Venous Blood B y Venipuncture Completed Medical Devices Description No Information Available Encounters Type Date Location Provider Dx Diagnosis Office Visit 01/20/2025 1:30p Main Office Jennifer Toussaint M.D. Z00.00 Encntr for general adult medical exam w/o abnormal findings F41.1 Generalized anxiety disorder E66.9 Obesity, unspecified G43.009 Migraine w/o aura, n ot intractable, w/o status migrainosus G47.33 Obstructive sleep ap isis (adult) (pediatric) E78.00 Pure hypercholestero lemia, unspecified I10 Essential (primary) hypertension Z98.[address] atus E04.2 Nontoxic multinodula r goiter F33.0 Major depressive dis order, recurrent, mild Z68.34 Body mass index [BMI ] 34.0-34.9, adult Assessments Date Code Description Provider 01/20/2025 Z00.00 Encounter for ge neral adult medical examination without abnormal findings Jennifer Toussaint M.D. 01/20/2025 F41.1 Generalized anxiety disorder Jennifer Toussaint M.D. 01/20/2025 E66.9 Obesity, unspecified Rodo Toussaint M.D. 01/20/2025 G43.009 Migraine without aura, not intractable, without status migrainosus Jennifer Toussaint M.D. 01/20/2025 G47.33 Obstructive slee p apnea (adult) (pediatric) Jennifer Toussaint M.D. 01/20/2025 E78.00 Pure hypercholes terolemia, unspecified Jennifer Toussaint M.D. 01/20/2025 I10 Essential (primary) hyperten chavo Jennifer Toussaint M.D. 01/20/2025 Z98.84 Bariatric surgery status Nellie Toussaint M.D. 01/20/2025 E04.2 Nontoxic multinodular goiter Jennifer Toussaint M.D. 01/20/2025 F33.0 Major depressive disorder, recurrent, mild Jennifer Toussaint M.D. 01/20/2025 Z68.34 Body mass index [BMI] 34.0-34.9, adult Jennifer Toussaint M.D. Plan of Treatment Future Appointment(s):* 05/24/2025 2:30 pm - Jennifer Toussaint M.D. at Main Office 01/20/2025 - Jennifer Toussaint M.D.* Z00.00 Encounter for general adult medical examination without abnormal findings * F41.1 Generalized anxiety disorder * E66.9 Obesity, unspecified * G43.009 Migraine without aura, not intractable, without status migrainosus * G47.33 Obstructive sleep apnea (adult) (pediatric) * E78.00 Pure hypercholesterolemia, unspecified * I10 Essential (primary) hypertension * Z98.84 Bariatric surgery status * E04.2 Nontoxic multinodular goiter * F33.0 Major depressive disorder, recurrent, mild * Z68.34 Body mass index [BMI] 34.0-34.9, adult Functional Status Description No Information Available Mental Status Description No Information Available Referrals Refer to Reason for Referral Status Appt Srikanth e [facility] Copyright Expert f/u diverticulitis S cheduled 06/24/[address] [address] [phone] [facility] RIGHT LEG WEAKNESS Closed 04/29/2023 [address] [place] [address] [phone] [facility] Copyright Expert FOLLOW UP DIVERTICUL ITIS Closed 02/28/[address] [address] [phone] Anshu Beckwith. PHD NEUROCOGNITIVE T ESTING COGNITIVE IMPAIRMENT X 9 MONTHS Closed [address] [place] [address] [phone]
--- OUTSIDE RECORDS SUMMARY | 2025-05-17 10:42 | XMS_ITS | Clinical Summary ---
Author Organization [facility] [address] [facility] Address [address] [place] [address] Phone Care Team Providers Care Operational Risk Analyst Name Role Phone Jennifer Toussaint MD Primary Care Provid er Allergies Active Allergy Reactions Criticality Noted Date Comments Gabapentin 03/29/2025 Propranolol 03/29/2025 Medications albuterol HFA (PROAIR HFA ; PROVENTIL HFA ; VENTOLIN HFA) 90 mcg/actuation inhaler Inhale 2 puffs by mouth every 6 (six) hours if needed for wheezing. Active amoxicillin (AMOXIL) 875 mg tablet Take 1 tablet (875 mg total) by mouth twice a day. Active atorvastatin (LIPITOR) 80 mg tablet Take 1 tablet (80 mg total) by mouth at bedtime. Active mv-mn/iron/FA/v it K/chol/coQ10 (DEKAs Bariatric) tablet,chewable Chew. Acti ve butalbital-acet aminophen-caffe ine (FIORICET, ESGIC) 50-325-40 mg per tablet Take 1 tablet by mouth every 4 (four) hours if needed for headaches. Active divalproex (DEPAKOTE) [address] tablet Take 1 tablet (250 mg total) by mouth 3 (three) times a day. Do not crush, chew, or split. Active FLUoxetine (PROzac) 20 mg capsule Take 1 capsule (20 mg total) by mouth 1 (one) time each day. Active methylphenidate (RITALIN) 5 mg tablet Take 1 tablet (5 mg total) by mouth 2 (two) times daily before breakfast and lunch. Max Daily Amount: 10 mg Active metroNIDAZOLE (FLAGYL) 500 mg tablet Take 1 tablet (500 mg total) by mouth 3 (three) times a day. Do not use mouth wash or consume alcohol until 48 hours after last dose Active brexpiprazole (Rexulti) 2 mg tablet Take 1 tablet (2 mg total) by mouth 1 (one) time each day. Active Encounters Date Type Department Care Team Description 03/29/2025 Telephone Gastroenterology - [address] [facility] [address] [place] [id number] Frank Eagle MD from Last 3 Months Social History Tobacco Use Types Packs/Day Years Used Date Smoking Tobacco: Never Assessed Comments Unknown Sex and Gender Information Value Date Recorded Sex Assigned at Not on file Legal Sex Female 4:04 AM EST Gender Identity Not on file Sexual Orientation Not on file Plan of Treatment Upcoming Encounters Date Type Department Care Team ([facility] st Contact Info) Description 06/24/2025 9:00 AM EST Appointment [facility] Endoscopy [address] [place] [phone] Frank Eagle MD [address] [place] [phone] Health Maintenance Due Date Last Done Comments Breast Cancer Screening 1969 DTaP,Tdap,and Td Vaccines (1 - Tdap) 1988 Hepatitis B Vaccines (1 of 3 - 19+ 3-dose series) 1988 Cervical Cancer Screening: P ap Smear 1990 Pneumococcal Vaccine: 50+ Years (1 of 1 - PCV) 10/09/2019 Zoster Vaccines (1 of 2) 10/09/2019 Depression Screening 07/15/2024 COVID-19 Vaccine (1 - 2023-2 5 season) 2025 Influenza Vaccine (#1) 2025 Cholesterol Screening (Lipid Panel) 03/29/2025 HIV Screening 03/29/2025 Hepatitis C Screening 03/29/2025 Social Influencers of Health Screening 03/29/2025 Colorectal Cancer Screening: Colonoscopy 04/01/2035 04/01/2025, 04/01/2025 RSV Immunization Adult Patients (1 - 1-dose 75+ series) 2044 HIB Vaccines Aged Out No longer eligi ble based on patient's age to complete this topic HPV Vaccines Aged Out No longer eligi ble based on patient's age to complete this topic Hepatitis A Vaccines Aged Out No long er eligible based on patient's age to complete this topic IPV Vaccines Aged Out No longer eligi ble based on patient's age to complete this topic MMR Vaccines Aged Out No longer eligi ble based on patient's age to complete this topic Meningococcal ACWY Vaccine Aged Out N o longer eligible based on patient's age to complete this topic Meningococcal B Vaccine Aged Out No l onger eligible based on patient's age to complete this topic RSV Immunization Patients Under 20 months Aged Out No longer eligible b ased on patient's age to complete this topic Varicella Vaccines Aged Out No longer eligible based on patient's age to complete this topic Goals Goal Patient Goal Type Associated Problems Recent Progress Patient-Stated? Author Autogenera rosa Goal Care Plan Autogenerated Problem No Idalia Manzo Procedures Procedure Name Priority Date/Time Associated Diagnosis Comments COLONOSCOPY Routine 04/01/2025 10:29 AM EDT COLONOSCOPY Routine 04/01/2025 10:28 AM EDT from Last 3 Months Results * COLONOSCOPY (04/01/2025 10:29 AM EDT) Only the most recent of2 resultswithin the time period is included. Anatomical Region Laterality Modality Endoscopy Historical Provider GI~PROCEDURE ORDERABLES F inal Result from Last 3 Months Additional Health Concerns Active Problems Noted Date Diagnosed Date Autogenerated Problem 04/22/[address] [facility] Care Teams Operational Risk Analyst Relationship Specialty Start Date End Date Jennifer Toussaint MD PCP - General Internal Medicine 04/28/12
== END 2025-05-17 09:41 | disposition home or self-care (01) ==
LOC: HO.HSM 09:29
PROVIDERS: PCP Internal Medicine Endocrinology, Diabetes & Metabolism; Referring Provider Internal Medicine Endocrinology, Diabetes & Metabolism; Visit Provider Registered Nurse
DX: G43.009 Migraine without aura, not intractable, without status migrainosus (principal)
CPT/HCPCS: 99214